=== PATIENT | female | born 1935 | race Caucasian/White ===

== ENCOUNTER 2023-05-02 13:59 | Emergency (ER) | payer MEDICARE, SELFPAY ==
[2023-05-02 14:00] VITALS: BMI 36.0
[2023-05-02 14:02] VITALS: BP 134/83
[2023-05-02 14:30] LABS: % Basophils 0.4 % (0-2); % Eosinophils 1.7 % (0-6); % Immature Granulocytes 0.3 % (0-0.5); % Lymphocytes 26.6 % (20.5-51.1); % Monocytes 15.7 % (1.7-9.3); % Neutrophils 55.3 % (42.2-75.2); Absolute Eosinophils 0.1 10^3/uL (0-0.7); Absolute Lymphocytes 1.9 10^3/uL (1.2-3.4); Absolute Monocytes 1.1 10^3/uL (0.1-0.6); Hematocrit 42.5 % (37.0-47.0); Hemoglobin 13.8 g/dL (12.0-16.0); Mean Corp Hgb Conc. 32.5 g/dL (33.0-37.0); Mean Corpuscular Hgb 34.1 pg (27.0-31.0); Mean Corpuscular Volume 104.9 fL (81.0-99.0); Mean Platelet Volume 11.1 fL (7.4-10.4); Nucleated Red Blood Cells % 0 %; Platelet Count 159 10^3/uL (130-400); Red Blood Cell Count 4.05 10^6/uL (4.20-5.40); Red Cell Dist. Width 12.8 % (11.5-14.5); White Blood Cell Count 7.3 10^3/uL (4.8-10.8)
[2023-05-02 14:47] LABS: Blood Urea Nitrogen 28 mg/dl (7-17); Calcium 9.3 mg/dl (8.4-10.2); Carbon Dioxide 37 mmol/L (22-30); Chloride 98 mmol/L (98-107); Estimated Creatinine Clearance 25 ml/min; Glucose 93 mg/dl (70-99); Potassium 4.3 mmol/L (3.5-5.1); Sodium 137 mmol/L (135-145); eGFR 30.83
[2023-05-02 15:14] VITALS: BP 125/82
--- NOTE | 2023-05-02 15:15 | ED.GENMED ---
History of Present Illness
General
Chief Complaint: Fall
Source: patient
Exam Limitations: none
Time Seen by Provider: 05/02/23 14:07
Travel History
Have you had any contact with someone who has COVID-19?: No
Do you have any symptoms of coronavirus? Fever > 100 degrees, chills, cough, shortness of breath, sore throat, loss of taste or smell, muscle aches, or headache?: No
History of Present Illness
History of Present Illness:
Patient got up to go to the bathroom. She lost her balance falling on the bathroom seat. No syncope no trauma at that time. She then got up to go into the living room or kitchen after urinating. She felt tremulous all over and then fell to the
ground. No chest pain shortness of breath heart racing. No syncope. Did hit the back of her head.
Past History
Past History
ED Past Medical History: Arrthythmia, CHF, GERD and Other (Chronic kidney disease)
ED Past Surgical History: Appendectomy, Cardiac (Pacemaker), Cholecystectomy, Orthopedic and Tonsilectomy
Review of Systems
Review of Systems
All Other Systems: Not applicable
Constitutional: Reports no symptoms
Respiratory: Reports no symptoms
Cardiac: Reports no symptoms
ABD/GI: Reports no symptoms
Phy Exam
Physical Exam
Physical Exam:
TRAUMA EXAM:
VITAL SIGNS: Vital signs reviewed, cooperative
DISTRESS: No active disease
EYES: Pupils reactive, no orbital trauma
NOSE: No deformity or epistaxis
FACE AND SCALP: No scalp or facial trauma, external canals no blood
NECK: Collar in place initially. Rechecked after collar removal nontender
BACK: Back nontender, pelvis stable to compression
RESPIRATORY: No distress, breath sounds normal, no tender chest wall
CARDIAC: Irregular irregular. Mildly tachycardic
ABDOMEN: Soft nontender bowel sounds normal
SKIN: Skin intact no bleeding, color normal
EXTREMITIES: Nontender, except for minimal tenderness to the right medial knee. No laxity or deformity
NEUROLOGICAL: Alert, oriented, no motor deficits
PSYCH: Mood affect normal
Course
Orders/Labs/Results
Orders:
Orders
05/02/23 14:16
Electrocardiogram (*1) Urgent
Reason for Study: Other
Other Reason for Exam: trauma
CT Cervical Spine W/o Iv Contr Urgent
Comment:
Reason For Exam: trauma
CT Head W/o Iv Contrast Urgent
Comment:
Reason For Exam: trauma
Cardiac Monitoring- Treatment ONCE
EKG- Treatment ONCE
05/02/23 14:18
Basic Metabolic Panel Urgent
Complete Blood Count/With Diff Urgent
Abnormal Lab Results
05/02/23
14:18
RBC 4.05 L 10^6/uL
(4.20-5.40)
MCV 104.9 H fL
(81.0-99.0)
MCH 34.1 H pg
(27.0-31.0)
MCHC 32.5 L g/dL
(33.0-37.0)
MPV 11.1 H fL
(7.4-10.4)
Absolute Monos (auto) 1.1 H 10^3/uL
(0.1-0.6)
Monocytes % 15.7 H %
(1.7-9.3)
Carbon Dioxide 37 H mmol/L
(22-30)
BUN 28 H mg/dl
(7-17)
Creatinine 1.6 H mg/dL
(0.6-1.0)
05/02/23 14:18
05/02/23 14:18
Vital Signs
Initial and Last Documented VS:
Initial Vital Signs
Temp
98.9 F
05/02/23 14:01
Last Documented Vital Signs
Temp Pulse Resp BP Pulse Ox
98.9 F 95 18 120/80 97
05/02/23 14:01 05/02/23 17:34 05/02/23 17:34 05/02/23 17:34 05/02/23 17:34
*Radiology
Radiology exam reviewed: radiology read reviewed (CT head and cervical spine negative)
*Pulse Oximetry
Patient hypoxic: no
*EKG
Interpreted by ED Provider?: Yes
Interpretation: abnormal
Comparison EKG: changes noted
Heart Rate: 104
Rate: tachycardiac
Rhythm: a-fib
Joffre: normal axis
Interval: normal interval
QRS Pattern: normal QRS
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
*Critical Care Note
Total Time (30-74mins, 75-104mins- exclusive of procedures): Not Applicable
Update Note
Update Note:
Pacemaker interrogation working correctly. Possibly under sensing atrial episodes. Episodes of A-fib. Currently in A-fib. No ventricular arrhythmias. No pacemaker malfunction. Patient is remained stable and nontoxic. She would like to go
home. Benign exam. No serious arrhythmia issues or pacemaker issues.
ED Attending Note
-
Portions of this chart may have been created with voice recognition software.� Occasional wrong word or��sound alike� substitutions may have occurred due to the inherent limitations of voice recognition software.
Discharge Plan
Departure
Patient Disposition: Home (Routine Discharge)
Date of Disposition: 05/02/23
Time of Disposition: 16:28
Patient with high blood pressure during this ER visit?: Yes
Discharge Problem:
Fall/posterior head injury, Paroxysmal atrial fibrillation, Chronic kidney disease
Instructions: Atrial Fibrillation (DC), Head Injury in Adults (DC), BLOOD PRESSURE
Prescriptions:
No Action
amiodarone 200 mg Tablet
200 mg PO BID
Culturelle 10 billion cell Capsule
1 cap PO BID
gabapentin 300 mg Tablet
600 mg PO HS
Creon 6,000-19,000 -30,000 unit Capsule,Delayed Release(Dr/Ec)
6,000 cap PO HS
Eliquis 2.5 mg Tablet
2.5 mg BID
psyllium husk [Metamucil] 0.4 gram Capsule
0.4 g PO DAILY
iron
240 mg PO DAILY
torsemide 20 mg Tablet
20 mg HS
trazodone 50 mg Tablet
100 mg HS
calcitriol 0.5 mcg Capsule
0.5 mcg DAILY
lovastatin 20 mg Tablet
20 mg PO HS
estradiol 0.01 % (0.1 mg/gram) Cream
VAGINAL DAILY
dimethyl sulfoxide 50 % Solution
INTRA-URETHRAL MONTHLY
nystatin 1 billion unit Powder
PO
potassium 20 mg Tablet,Chewable
20 mg PO DAILY
Prilosec 2.5 mg Susp,Delayed Release For Recon
2.5 mg DAILY
Referrals:
Marylu Sidhu DO [Family Provider] - Follow up in 2-3 days
Activity Restrictions/Additional Instructions:
Also call your automatic drill operator for close follow-up
Interventions
Interventions:
*Risk Screen - Suicide Last Done: 05/02/23 14:01
*General Assessment Last Done: 05/02/23 14:01
*Neglect/Abuse Screening Last Done: 05/02/23 14:01
ED- Fall Risk Assessment Last Done: 05/02/23 14:01
*ED COVID-19 Vaccine History Last Done: 05/02/23 14:01
*Nursing Disposition Last Done: 05/02/23 17:35
ED-Musculoskeletal Assessment Last Done: 05/02/23 14:01
ED- Neurological Assessment Last Done: 05/02/23 14:01
ED-Skin Assessment Last Done: 05/02/23 14:01
Discharge Date and Time
Discharge Date/Time: 05/02/23 17:37
[2023-05-02 17:34] VITALS: BP 120/80
== END 2023-05-02 17:37 | disposition home or self-care (01) ==
LOC: EMR 13:59
PROVIDERS: EMERGENCY PHYSICIAN Emergency Medicine; FAMILY PHYSICIAN Student in an Organized Health Care Education/Training Program
DX: S09.90XA Unspecified injury of head, initial encounter (principal); W19.XXXA Unspecified fall, initial encounter; I48.0 Paroxysmal atrial fibrillation; N18.9 Chronic kidney disease, unspecified; I50.9 Heart failure, unspecified; K21.9 Gastro-esophageal reflux disease without esophagitis; Z95.0 Presence of cardiac pacemaker
CPT/HCPCS: 99284; 70450; 72125; 80048; 85025; 93005

== ENCOUNTER → 2023-06-13 12:00 | Outpatient (REF) | payer MEDICARE, SELFPAY ==
[2023-06-13 14:43] LABS: Creatine Phosphokinase 64 U/L (30-135); Iron 75 ug/dl (37-170)
[2023-06-13 14:50] LABS: Erythrocyte Sed Rate 33 mm/hour (0-20)
[2023-06-13 14:53] LABS: Percent Saturation 26 % (20-50); Total Iron Binding Capacity 286 ug/dl (265-497)
[2023-06-13 14:54] LABS: Glycohemoglobin (HgbA1c) 6.4 % (4.0-5.6)
[2023-06-13 15:00] LABS: Vitamin D, 25-OH*** 39.8 ng/mL (30-80)
[2023-06-13 15:01] LABS: IgA 128 mg/dl (70-400)
[2023-06-13 15:13] LABS: TSH 2.16 uIU/ml (0.47-4.68)
[2023-06-13 15:17] LABS: Ferritin 84.2 ng/ml (11.1-264.0)
[2023-06-13 15:49] LABS: Folate > 20.0 ng/ml (2.76-20); Vitamin B12 980 pg/ml (239-931)
[2023-06-14 11:38] LABS: CRP, Highly Sensitive > 15.00 mg/L
[2023-06-14 16:40] LABS: Syphilis/T. pallidum Ab Reflex Negative (Negative)
[2023-06-15 15:17] LABS: tTG IgA Antibody 6.9 EU/ml (0-19)
[2023-06-15 20:48] LABS: Thyroglobulin 2.9 ng/mL (1.3-31.8); Thyroglobulin Antibodies <0.9 IU/mL (0.0-4.0)
[2023-06-16 06:10] LABS: Aldolase 8.9 U/L (1.2-7.6); Angiotensin-1-converting Enzym 75 U/L (16-85)
[2023-06-16 07:22] LABS: ANA, IgG Reflex to HEp-2 None Detected (None Detected)
[2023-06-16 07:58] LABS: Gliadin Peptide (DGP) Ab, IgA <0.72 FLU (0.00-4.99); Gliadin Peptide (DGP) Ab, IgG <0.56 FLU (0.00-4.99)
[2023-06-16 11:07] LABS: Copper, Serum 126.5 ug/dL (80.0-155.0)
[2023-06-16 12:55] LABS: Vitamin D 1,25 Dihydroxy 46.9 pg/mL (19.9-79.3)
[2023-06-17 00:51] LABS: SSA 52 (Ro)(ENA) Ab, IgG 20 AU/mL (0-40); SSA 60 (Ro)(ENA) Ab, IgG 0 AU/mL (0-40); SSB (La)(ENA) Ab, IgG 0 AU/mL (0-40)
[2023-06-17 12:22] LABS: Albumin 3.41 g/dL (3.75-5.01); Alpha 1 Globulin 0.37 g/dL (0.19-0.46); Alpha 2 Globulin 0.81 g/dL (0.48-1.05); SPEP IFE Reflex Not Done; Total Protein-Electrophoresis 6.1 g/dL (6.3-8.2)
[2023-06-17 12:55] LABS: Alpha-Tocopherol 16.6 mg/L (5.5-18.0); Gamma-Tocopherol 0.6 mg/L (0.0-6.0)
[2023-06-17 14:27] LABS: Vitamin B6 Results 57.8 nmol/L (20.0-125.0)
[2023-06-19 10:10] LABS: Vitamin B1, Whole Blood 227 nmol/L (70-180)
== END ==
LOC: REG 12:00
PROVIDERS: ATTENDING PHYSICIAN Psychiatry & Neurology Neurology; FAMILY PHYSICIAN Student in an Organized Health Care Education/Training Program
DX: R29.898 Other symptoms and signs involving the musculoskeletal system (principal)
CPT/HCPCS: 36415; 72100; 82085; 82164; 82306; 82525; 82550; 82607; 82652; 82728; 82746; 82784; 83036; 83516; 83540; 83550; 84155; 84165; 84207; 84425; 84432; 84443; 84446; 85652; 86038; 86141; 86235; 86258; 86780; 86800

== ENCOUNTER → 2023-07-21 10:52 | Outpatient (REF) | payer MEDICARE, SELFPAY ==
[2023-07-21 11:38] LABS: % Basophils 0.2 % (0-2); % Eosinophils 0.9 % (0-6); % Immature Granulocytes 0.4 % (0-0.5); % Lymphocytes 17.8 % (20.5-51.1); % Monocytes 17.3 % (1.7-9.3); % Neutrophils 63.4 % (42.2-75.2); Absolute Eosinophils 0.1 10^3/uL (0-0.7); Absolute Lymphocytes 1.5 10^3/uL (1.2-3.4); Absolute Monocytes 1.5 10^3/uL (0.1-0.6); Absolute Neutrophils 5.3 10^3/uL (1.4-6.5); Hematocrit 38.6 % (37.0-47.0); Hemoglobin 12.9 g/dL (12.0-16.0); Mean Corp Hgb Conc. 33.4 g/dL (33.0-37.0); Mean Corpuscular Hgb 33.8 pg (27.0-31.0); Mean Platelet Volume 11.9 fL (7.4-10.4); Nucleated Red Blood Cells % 0 %; Platelet Count 156 10^3/uL (130-400); Red Blood Cell Count 3.82 10^6/uL (4.20-5.40); Red Cell Dist. Width 13.7 % (11.5-14.5); White Blood Cell Count 8.4 10^3/uL (4.8-10.8)
[2023-07-21 11:57] LABS: ALT (SGPT) 401 U/L (0-35); AST (SGOT) 348 U/L (14-36); Albumin 2.9 g/dl (3.5-5.0); Alkaline Phosphatase 184 U/L (38-126); Blood Urea Nitrogen 36 mg/dl (7-17); Calcium 8.7 mg/dl (8.4-10.2); Carbon Dioxide 28 mmol/L (22-30); Chloride 99 mmol/L (98-107); Glucose 102 mg/dl (70-99); HDL Cholesterol 46 mg/dl; LDL Cholesterol, Calculated 53 mg/dl; Potassium 2.9 mmol/L (3.5-5.1); Sodium 136 mmol/L (135-145); Total Bilirubin 0.7 mg/dl (0.2-1.3); Total Cholesterol 118 mg/dl (50-199); Total Protein 5.1 g/dl (6.3-8.2); Triglyceride 96 mg/dl (10-149); Very Low Density Lipoprotein 19 mg/dl (0-30); eGFR 26.77
[2023-07-21 12:13] LABS: Free T4 2.54 ng/dl (0.78-2.19); Vitamin D, 25-OH*** 38.8 ng/mL (30-80)
[2023-07-21 12:26] LABS: TSH 0.85 uIU/ml (0.47-4.68)
[2023-07-21 12:46] LABS: Vitamin B12 > 1000 pg/ml (239-931)
[2023-07-21 14:26] LABS: Glycohemoglobin (HgbA1c) 6.2 % (4.0-5.6)
== END ==
LOC: OLABMERCHI 10:52
PROVIDERS: ATTENDING PHYSICIAN Nurse Practitioner Gerontology; FAMILY PHYSICIAN Hospitalist
DX: D64.9 Anemia, unspecified (principal); R94.4 Abnormal results of kidney function studies; E78.5 Hyperlipidemia, unspecified; E11.9 Type 2 diabetes mellitus without complications; D51.9 Vitamin B12 deficiency anemia, unspecified; E55.9 Vitamin D deficiency, unspecified; E03.9 Hypothyroidism, unspecified
CPT/HCPCS: 36415; 80053; 80061; 82306; 82607; 83036; 84439; 84443; 85025

== ENCOUNTER → 2023-07-28 10:40 | Outpatient (REF) | payer MEDICARE, SELFPAY ==
[2023-07-28 11:39] LABS: Potassium 3.8 mmol/L (3.5-5.1)
== END ==
LOC: OLABMERCHI 10:40
PROVIDERS: ATTENDING PHYSICIAN Nurse Practitioner Gerontology; FAMILY PHYSICIAN Hospitalist
DX: E87.6 Hypokalemia (principal)
CPT/HCPCS: 36415; 84132

== ENCOUNTER 2023-09-02 16:56 | Emergency (ER) | payer MEDICARE, SELFPAY ==
[2023-09-02 16:56] VITALS: BP 144/61; BMI 36.0
--- NOTE | 2023-09-02 17:10 | ED.GENMED ---
History of Present Illness
General
Chief Complaint: Fall
Time Seen by Provider: 09/02/23 17:09
History of Present Illness
History of Present Illness:
HPI: The patient presents from [facility] after a fall. She is on Eliquis and struck her head. She has had similar falls in the past and describes these as her 'knees giving out' and losing her balance. She does not have any neck pain. She has
no significant head pain. She denies any other symptoms or concerns at this time.
EXAM:
GENERAL: Well appearing in no distress
HEENT: Moist oral mucosa
HEAD: Small tender hematoma over the posterior scalp
NECK: No midline C-spine tenderness
CARDIOVASCULAR: 3 out of 6 systolic murmur, normal heart rate, regular rhythm, No chest wall tenderness, device noted left anterior chest wall
PULMONARY: No respiratory distress, breath sounds are clear and equal
ABDOMEN: Soft with no peritoneal signs, no tenderness
NEUROLOGIC: Fair strength equally in all extremities, no coordination deficits
PSYCHIATRIC: Appropriate mental status, normal insight and judgement
EXTREMITIES: Nontender, no edema, moves all extremities equally
SKIN: No rash, no lesions
TIME OF INITIAL ENCOUNTER: 5 PM
NUMBER AND COMPLEXITY OF PROBLEMS ADDRESSED AT THE ENCOUNTER
� Chronic conditions affecting care: A-fib on Eliquis, DVT, CKD, high blood pressure, CAD
� Acute Exacerbation and/or Progression of Chronic Illness: This is an acute but recurring problem
� Differential Diagnosis includes: Minor head injury, scalp hematoma, intracranial hemorrhage, dysrhythmia
AMOUNT AND/OR COMPLEXITY OF DATA TO BE REVIEWED AND ANALYZED
� I performed an independent evaluation of and my interpretation is:
EKG:
CT: CT head negative for bleeding
X-rays:
Laboratory Studies: Glucose 92
Other:
� Review of other/old records: The patient has history of sick sinus syndrome and had pacer placed in 2022
� Clinical information was obtained by an independent historian: EMS notes�patient on Eliquis and has history of A-fib; her systolics range from 130s to 150s while en route
� Prescriptions/Medications Considered but not given: Offered Tylenol but the patient declined
� Further testing considered but not performed: Considered CT of the C-spine however the patient has no cervical spine tenderness and is cleared by [facility] criteria
RISK OF COMPLICATIONS AND/OR MORBIDITY OR MORTALITY OF PATIENT MANAGEMENT
� Social determinants of health affecting care: Resides at [facility]
� Discussion with other providers: Received report from [facility]�patient had 522 monitored AT/AF episodes most recently on 08/31/2023, no sign of VT
� Escalation of care including admission/observation vs risk of discharge considered: Given patient age on Eliquis with head injury, CT imaging of the brain obtained. [employer] report shows no ventricular dysrhythmia. Glucose
normal. On reassessment at 7:50 PM, unremarkable workup and she continues to decline analgesia. Neurologic condition unchanged.
Past History
Past History
ED Past Medical History: Arrthythmia, CHF, GERD and Other (Chronic kidney disease)
ED Past Surgical History: Appendectomy, Cardiac (Pacemaker), Cholecystectomy, Orthopedic and Tonsilectomy
Phy Exam
Physical Exam
Physical Exam:
See HPI
Course
Orders/Labs/Results
Orders:
Orders
09/02/23 17:15
CT Head W/o Iv Contrast Urgent
Comment:
Reason For Exam: head trauma eliquis
Bedside Glucose- Treatment ONCE
Vital Signs
Initial and Last Documented VS:
Initial Vital Signs
Temp Pulse Resp BP Pulse Ox
97.7 F 68 19 144/61 95
09/02/23 16:56 09/02/23 16:56 09/02/23 16:56 09/02/23 16:56 09/02/23 16:56
Last Documented Vital Signs
Temp Pulse Resp BP Pulse Ox
97.7 F 60 20 106/85 95
09/02/23 16:56 09/02/23 19:25 09/02/23 19:25 09/02/23 19:25 09/02/23 16:56
*Critical Care Note
Total Time (30-74mins, 75-104mins- exclusive of procedures): Not Applicable
ED Attending Note
-
Portions of this chart may have been created with voice recognition software.� Occasional wrong word or��sound alike� substitutions may have occurred due to the inherent limitations of voice recognition software.
Discharge Plan
Departure
Prescriptions:
No Action
amiodarone 200 mg Tablet
200 mg PO BID
Culturelle 10 billion cell Capsule
1 cap PO BID
gabapentin 300 mg Tablet
600 mg PO HS
Creon 6,000-19,000 -30,000 unit Capsule,Delayed Release(Dr/Ec)
6,000 cap PO HS
Eliquis 2.5 mg Tablet
2.5 mg BID
psyllium husk [Metamucil] 0.4 gram Capsule
0.4 g PO DAILY
iron
240 mg PO DAILY
torsemide 20 mg Tablet
20 mg HS
trazodone 50 mg Tablet
100 mg HS
calcitriol 0.5 mcg Capsule
0.5 mcg DAILY
lovastatin 20 mg Tablet
20 mg PO HS
estradiol 0.01 % (0.1 mg/gram) Cream
VAGINAL DAILY
dimethyl sulfoxide 50 % Solution
INTRA-URETHRAL MONTHLY
nystatin 1 billion unit Powder
PO
potassium 20 mg Tablet,Chewable
20 mg PO DAILY
Prilosec 2.5 mg Susp,Delayed Release For Recon
2.5 mg DAILY
Referrals:
Radha Membreno, [Family Provider] -
Interventions
Interventions:
*Risk Screen - Suicide Last Done: 09/02/23 16:56
*General Assessment Last Done: 09/02/23 16:56
*Neglect/Abuse Screening Last Done: 09/02/23 16:56
*ED COVID-19 Vaccine History Last Done: 09/02/23 16:56
ED- Neurological Assessment Last Done: 09/02/23 17:04
Discharge Date and Time
Print Language: ARMENIAN
[2023-09-02 17:15] LABS: Glucose - Point of Care 92 mg/dl (70-99)
[2023-09-02 19:25] VITALS: BP 106/85
[2023-09-02 20:00] VITALS: BP 123/47
[2023-09-02 20:46] VITALS: BP 123/47
== END 2023-09-02 20:49 | disposition home or self-care (01) ==
LOC: EMR 16:56
PROVIDERS: EMERGENCY PHYSICIAN Emergency Medicine; FAMILY PHYSICIAN Hospitalist
DX: S00.03XA Contusion of scalp, initial encounter (principal); W19.XXXA Unspecified fall, initial encounter; Y92.89 Other specified places as the place of occurrence of the external cause; I48.91 Unspecified atrial fibrillation; I25.10 Atherosclerotic heart disease of native coronary artery without angina pectoris; I12.9 Hypertensive chronic kidney disease with stage 1 through stage 4 chronic kidney disease, or unspecified chronic kidney disease; N18.9 Chronic kidney disease, unspecified; I50.9 Heart failure, unspecified; I49.5 Sick sinus syndrome; K21.9 Gastro-esophageal reflux disease without esophagitis; Z95.0 Presence of cardiac pacemaker; Z79.01 Long term (current) use of anticoagulants; Z90.49 Acquired absence of other specified parts of digestive tract
CPT/HCPCS: 99284; 93288; 70450; 82962

== ENCOUNTER → 2023-09-02 18:54 | Outpatient (REF) | payer MEDICARE, SELFPAY ==
[2023-09-02 19:45] LABS: Urine Albumin 2+ (Neg - Trace); Urine Bilirubin Negative (Negative); Urine Character Very Cloudy (Clear); Urine Color Yellow; Urine Glucose Negative (Negative); Urine Ketone Negative (Negative); Urine Leukocyte 2+ (Negative); Urine Nitrite Negative (Negative); Urine Occult Blood 3+ (Negative); Urine Specific Gravity 1.015 (<1.030); Urine Urobilinogen Negative (Neg - 1+)
[2023-09-02 20:05] LABS: Urine White Cell >100 /HPF (0-5)
== END ==
LOC: OLABMERCHI 18:54
PROVIDERS: ATTENDING PHYSICIAN Nurse Practitioner Gerontology; FAMILY PHYSICIAN Hospitalist
DX: N39.0 Urinary tract infection, site not specified (principal)
CPT/HCPCS: 81003; 81015; 87077; 87086; 87186

== ENCOUNTER → 2023-09-15 11:29 | Outpatient (REF) | payer MEDICARE, SELFPAY ==
[2023-09-15 13:40] LABS: Blood Urea Nitrogen 35 mg/dl (7-17); Calcium 9.4 mg/dl (8.4-10.2); Carbon Dioxide 28 mmol/L (22-30); Chloride 105 mmol/L (98-107); Glucose 100 mg/dl (70-99); Potassium 3.6 mmol/L (3.5-5.1); Sodium 139 mmol/L (135-145); eGFR 33.31
== END ==
LOC: OLABMERCHI 11:29
PROVIDERS: ATTENDING PHYSICIAN Hospitalist
DX: R94.4 Abnormal results of kidney function studies (principal)
CPT/HCPCS: 36415; 80048

== ENCOUNTER → 2023-09-28 18:21 | Outpatient (REF) | payer MEDICARE, SELFPAY ==
[2023-09-28 19:43] LABS: Urine Albumin 2+ (Neg - Trace); Urine Bilirubin Negative (Negative); Urine Character Very Cloudy (Clear); Urine Color Yellow; Urine Glucose Negative (Negative); Urine Ketone Trace (Negative); Urine Leukocyte 2+ (Negative); Urine Nitrite Negative (Negative); Urine Occult Blood 4+ (Negative); Urine Specific Gravity 1.015 (<1.030); Urine Urobilinogen Negative (Neg - 1+)
[2023-09-28 19:49] LABS: Urine Red Blood Cell >100 /HPF (0-2)
== END ==
LOC: CLAB 18:21
PROVIDERS: ATTENDING PHYSICIAN Urology
DX: N39.0 Urinary tract infection, site not specified (principal)
CPT/HCPCS: 81003; 81015; 87086; 87088; 87186

== ENCOUNTER → 2023-10-19 11:32 | Outpatient (REF) | payer MEDICARE, SELFPAY ==
[2023-10-20 13:32] LABS: Urine Albumin Trace (Neg - Trace); Urine Bilirubin Negative (Negative); Urine Character Very Cloudy (Clear); Urine Color Yellow; Urine Glucose Negative (Negative); Urine Ketone Negative (Negative); Urine Leukocyte 2+ (Negative); Urine Nitrite Negative (Negative); Urine Occult Blood 4+ (Negative); Urine Urobilinogen Negative (Neg - 1+); Urine pH 6.5 (5.0-9.0)
[2023-10-20 14:16] LABS: Urine Squamous Cell 0-2 /LPF (Few)
[2023-10-20 14:18] LABS: Urine Red Blood Cell 50-60 /HPF (0-2); Urine White Cell >100 /HPF (0-5)
== END ==
LOC: OLABMERCHI 11:32
PROVIDERS: ATTENDING PHYSICIAN Nurse Practitioner Gerontology; FAMILY PHYSICIAN Hospitalist
DX: N39.0 Urinary tract infection, site not specified (principal)
CPT/HCPCS: 81003; 81015; 87086

== ENCOUNTER → 2023-11-02 18:50 | Outpatient (REF) | payer MEDICARE, SELFPAY | LOC: OLABMERCHI 18:50 | PROVIDERS: ATTENDING PHYSICIAN Specialist | DX: N39.0 Urinary tract infection, site not specified (principal) | CPT/HCPCS: 87086 ==

== ENCOUNTER 2023-12-16 17:54 | Inpatient (IN) | payer MEDICARE, SELFPAY ==
[2023-12-16] VITALS (8 sets, daily range): BP systolic 99–139; BP diastolic 61–90; BMI 31.4; BMI 29.8
--- NOTE | 2023-12-16 12:43 | ED.GENMED ---
ED Provider Triage
<José Gutierrez PA-C - Last Filed: 12/16/23 12:46>
-
Patient seen by provider in Triage?: Seen in Triage
Attestation: A medical screening examination has been initiated by a qualified medical provider. Based on the assessment performed at this time, it has been determined that an emergent medical condition may exist and the patient has been informed
that further medical evaluation and possible additional diagnostic testing may be needed.
HPI: 88-year-old female presenting to the emergency department from primary care physician's office. Patient has been getting care on a right lower extremity wound that started with a broken foot after patient had been placed in orthopedic boot and
the boot caused the wound. She has been on antibiotics for many days, recently about a week ago had doxycycline initiated but patient has not been getting any better and family now reporting that patient has not been eating or drinking and has had
a change in mental status.
GENERAL: Somewhat somnolent, not responsive and history obtained from son
EYE: No visual abnormalities.
NECK: Trachea midline
ENT: No visible abnormalities.
LUNGS: No acute respiratory distress
NEUROLOGICAL: Sleepy but arousable to tactile stimuli and voice
SKIN: Skin intact. No visible changes.
MUSCULOSKELETAL: Moving extremities normally
PSYCH: Unable to assess
This is a medical evaluation conducted in person to initiate diagnostic evaluation and provide initial therapeutics. Please see further documentation by the treating clinician.
Patient noted to be quite tachycardic. Given her history will initiate lactic acid. Will defer blood cultures to treating provider
History of Present Illness
<José Gutierrez PA-C - Last Filed: 12/16/23 12:46>
General
Chief Complaint: Weakness
Time Seen by Provider: 12/16/23 15:15
<Jane Alexander PA-C - Last Filed: 12/16/23 23:54>
General
Source: patient and family
Exam Limitations: none
Nursing documentation reviewed up to this point in time: agreed with
History of Present Illness
History of Present Illness:
88-year-old female coming from [facility] with a history of A-fib, on Eliquis here for severe pain in her right heel with a known ulceration.
Patient apparently broke her foot about 6 weeks ago and was put in a walking boot after she saw specialist at [facility] orthopedics. 2 weeks ago the boot was removed and there was heel pain. She been seen a couple times for this until a red
spot was noticed by family care doctor family practice nurse practitioner and presumed to be an infection. She was started on Keflex which she had for several days but they felt like it was not healing so she was switched to doxycycline 4 days ago.
Ever since being on doxycycline she has been having nausea and diarrhea; she hasn't eaten really in thepast 3 days
the diarrhea was more significant the first 2 days but has tapered off
per son, she is more confused than normal
she has not had fever, vomiting, cp, sob, headache, abdominal pain
pt has severe pain th ein heel and has been taking pain meds pretty regularly
this has been going on for a few weeks now
the COMPUTER FORENSIC SPECIALIST from PCP office saw it today and thought it looked worse and sent her in
Past History
<José Gutierrez PA-C - Last Filed: 12/16/23 12:46>
Past History
ED Past Medical History: Arrthythmia, CHF, GERD and Other (Chronic kidney disease)
ED Past Surgical History: Appendectomy, Cardiac (Pacemaker), Cholecystectomy, Orthopedic and Tonsilectomy
Review of Systems
<Jane Alexander PA-C - Last Filed: 12/16/23 23:54>
Review of Systems
Allergies reviewed?: Yes
All Other Systems: Not applicable
Phy Exam
<JORGE A Trejo Last Filed: 12/16/23 23:54>
Physical Exam
Physical Exam:
GENERAL: anxious, uncomfortable
HEAD: NCAT
CV: irregular, tachycardic 100s; no obvious murmur, b/l pitting symmetric LE edema
lungs: clear, no resp distress
NEUROLOGICAL: Alert and oriented, no focal neuro deficits, , 5/5 strength, sensation intact,
SKIN: Warm and dry,
ulceration posterior heel 4 x 2 cm stage II, surrounding mild eryhema and STS to the heel
exquisitely tender
MUSCULOSKELETAL: heel tender with ulceration and sts; no dorsal foot tenderness;
able to move theankle
PSYCH: Normal and appropriate interaction.
Sepsis
<Jane Alexander PA-C - Last Filed: 12/16/23 23:54>
Sepsis Screening
Sepsis Assessment: Sepsis
Sepsis Screen
Sepsis Screen: Sepsis
Date: 12/16/23
Time: 23:53
Course
<José Gutierrez PA-C - Last Filed: 12/16/23 12:46>
Orders/Labs/Results
Orders:
Orders
12/16/23 13:02
Basic Metabolic Panel Urgent
C-Reactive Protein Urgent
Comment: ADD ON
Complete Blood Count/With Diff Urgent
Erythrocyte Sed Rate Urgent
Comment: ADD ON
Lactic Acid Q4H
Comment: CANCEL 2nd LACTIC ACID IF 1st LACTIC ACID IS LESS THAN 2
12/16/23 Dinner
NPO
Allow oral meds: Yes
Allow clear liquids: No
12/16/23 15:43
Add On- LAB Urgent
Tests Added?: esr,crp
Foot, Right 3 View [CR Foot - Right Min 3 Views] Urgent
Comment:
Reason For Exam: right foot wound not healing
12/16/23 15:46
HYDROmorphone [Dilaudid] 0.5 mg IV NOW STA
12/16/23 15:49
Venous Blood Gas Urgent
%Oxygen/Room Air: 21
12/16/23 16:27
STOOL [C difficile Antigen & Toxins] Urgent
STEVE Source: Feces/Stool
Specimen Description:
Stool Culture Urgent
STEVE Source: Feces/Stool
Specimen Description:
12/16/23 16:30
0.9% Sodium Chloride 500 ml [Nss] 500 ml IV BOLUS
Dextrose 5%/Water 1000 ml [D5w] 1,000 ml Sodium Bicarbonate 150 meq IV 100 mls/hr
12/16/23 16:56
LFT [Mxewl-Ypfl-Pzwzvuj] Urgent
Blood Culture Urgent
STEVE Source: Blood/Venous
Specimen Description:
12/16/23 17:23
Admit/Transfer Patient As Directed
Co-Sign Provider:
Level of Care: Inpatient admission
Assign to:: IMU- Intermediate Care
Physician / Group: Dr Villa
Diagnosis: Sepsis
Reason for Hospitalization: pte p/w n/v/d and ams and pain right heel and sepsis.
Expected length of stay greater than two midnights?: Yes
ELOS- Estimated Length of Stay in days: 2
I certify the patient meets the requirements for IP care: Yes
12/16/23 17:24
Code Status As Directed
Resuscitation Status: Full Code
PRN Pain Medication Management As Directed
May give lesser potent ordered pain med per pt: Yes
preference::
Protocol:: Medication orders for pain may be administered in a
manner that supports deferring to patient preference
when the pt is:
- Requesting an ordered lesser potent pain medication.
Least to most potent pain medications are defined
as: acetaminophen < NSAID < tramadol < opioids
(morphine, oxycodone, hydromorphone).
- Requesting a lesser dose of the same medication IF
ORDERED.
- Requesting a less intrusive route of administration
if both routes are prescribed by the provider (PO <
IV).
12/16/23 17:26
Calcium Gluconate 1,000 mg IV NOW STA
Sodium Bicarbonate 50 meq IV NOW STA
12/16/23 17:27
INFECTIOUS DISEASE CONSULT Routine
Consulting Provider: Kavita Drake
Was physician already notified: Yes
Reason for consult: sepsis
12/16/23 17:28
0.9% Sodium Chloride 1000 ml [Nss] 1,000 ml IV BOLUS
12/16/23 17:30
0.9% Sodium Chloride 1000 ml [Nss] 1,000 ml IV 125 mls/hr
12/16/23 17:38
Vancomycin [Vancocin] 1,750 mg 0.9% Sodium Chloride 500 ml [Nss] 500 ml IV NOW
12/16/23 17:44
EKG [Electrocardiogram (*1)] Stat
Reason for Study: Atrial Fibrillation
Other Reason for Exam: Also Hyperkalemia
12/16/23 18:00
Cefepime HCl [Maxipime] 1,000 mg IV Q12H
VANCOMYCIN Pharmacy to Dose [VANCOCIN Pharmacy to Dose] 1 each Pharmacy To Prepare [Call Pharmacy To Prepare] 0 ml IV PER PROTOCOL
12/16/23 19:44
Activity As Directed
Activity Level: Out of Bed-Early Mobility
Vital Signs As Directed
Frequency: Per unit guidelines
DX Deep Vein Thrombosis Video Routine
12/16/23 20:00
Heparin 5,000 units SC Q12
12/16/23 21:02
BMP [Basic Metabolic Panel] Routine
12/17/23 06:00
Basic Metabolic Panel IN AM
Complete Blood Count/With Diff IN AM
Abnormal Lab Results
12/16/23 12/16/23 12/16/23
13:02 15:49 16:56
WBC 13.0 H 10^3/uL
(4.8-10.8)
Hct 47.2 H %
(37.0-47.0)
MCV 102.6 H fL
(81.0-99.0)
MCH 34.6 H pg
(27.0-31.0)
RDW 15.3 H %
(11.5-14.5)
MPV 11.5 H fL
(7.4-10.4)
Absolute Neuts (auto) 10.1 H 10^3/uL
(1.4-6.5)
Absolute Monos (auto) 1.4 H 10^3/uL
(0.1-0.6)
Neutrophils % 77.9 H %
(42.2-75.2)
Lymphocytes % 10.1 L %
(20.5-51.1)
Monocytes % 10.9 H %
(1.7-9.3)
VBG pH 7.16 L*
(7.32-7.43)
VBG pCO2 50 H mmHg
(35-48)
VBG HCO3 17.8 L mmol/L
(22-27)
Sodium 134 L mmol/L
(135-145)
Potassium 5.6 H mmol/L
(3.5-5.1)
Chloride 109 H mmol/L
(98-107)
Carbon Dioxide 12 L* mmol/L
(22-30)
BUN 35 H mg/dl
(7-17)
Creatinine 1.7 H mg/dL
(0.6-1.0)
Glucose 135 H mg/dl
(70-99)
AST 124 H U/L
(14-36)
ALT 205 H U/L
(0-35)
Alkaline Phosphatase 415 H U/L
(38-126)
C-Reactive Protein 57.30 H mg/L
(0.0-10.00)
Total Protein 5.1 L g/dl
(6.3-8.2)
Albumin 3.0 L g/dl
(3.5-5.0)
12/16/23 13:02
12/16/23 13:02
Vital Signs
Initial and Last Documented VS:
Initial Vital Signs
Pulse Resp BP Pulse Ox
121 16 129/86 98
12/16/23 12:40 12/16/23 12:40 12/16/23 12:40 12/16/23 12:40
Last Documented Vital Signs
Temp Pulse Resp BP Pulse Ox
97.4 F 125 18 99/63 95
12/16/23 23:26 12/16/23 22:03 12/16/23 22:03 12/16/23 22:03 12/16/23 22:03
<Jane Alexander PA-C - Last Filed: 12/16/23 23:54>
Orders/Labs/Results
Orders:
Orders
12/16/23 13:02
Basic Metabolic Panel Urgent
C-Reactive Protein Urgent
Comment: ADD ON
Complete Blood Count/With Diff Urgent
Erythrocyte Sed Rate Urgent
Comment: ADD ON
Lactic Acid Q4H
Comment: CANCEL 2nd LACTIC ACID IF 1st LACTIC ACID IS LESS THAN 2
12/16/23 Dinner
NPO
Allow oral meds: Yes
Allow clear liquids: No
12/16/23 15:43
Add On- LAB Urgent
Tests Added?: esr,crp
Foot, Right 3 View [CR Foot - Right Min 3 Views] Urgent
Comment:
Reason For Exam: right foot wound not healing
12/16/23 15:46
HYDROmorphone [Dilaudid] 0.5 mg IV NOW STA
12/16/23 15:49
Venous Blood Gas Urgent
%Oxygen/Room Air: 21
12/16/23 16:27
STOOL [C difficile Antigen & Toxins] Urgent
STEVE Source: Feces/Stool
Specimen Description:
Stool Culture Urgent
STEVE Source: Feces/Stool
Specimen Description:
12/16/23 16:30
0.9% Sodium Chloride 500 ml [Nss] 500 ml IV BOLUS
Dextrose 5%/Water 1000 ml [D5w] 1,000 ml Sodium Bicarbonate 150 meq IV 100 mls/hr
12/16/23 16:56
LFT [[id number]-Yzfi-Uhtddvw] Urgent
Blood Culture Urgent
STEVE Source: Blood/Venous
Specimen Description:
12/16/23 17:23
Admit/Transfer Patient As Directed
Co-Sign Provider:
Level of Care: Inpatient admission
Assign to:: IMU- Intermediate Care
Physician / Group: Dr Villa
Diagnosis: Sepsis
Reason for Hospitalization: pte p/w n/v/d and ams and pain right heel and sepsis.
Expected length of stay greater than two midnights?: Yes
ELOS- Estimated Length of Stay in days: 2
I certify the patient meets the requirements for IP care: Yes
12/16/23 17:24
Code Status As Directed
Resuscitation Status: Full Code
PRN Pain Medication Management As Directed
May give lesser potent ordered pain med per pt: Yes
preference::
Protocol:: Medication orders for pain may be administered in a
manner that supports deferring to patient preference
when the pt is:
- Requesting an ordered lesser potent pain medication.
Least to most potent pain medications are defined
as: acetaminophen < NSAID < tramadol < opioids
(morphine, oxycodone, hydromorphone).
- Requesting a lesser dose of the same medication IF
ORDERED.
- Requesting a less intrusive route of administration
if both routes are prescribed by the provider (PO <
IV).
12/16/23 17:26
Calcium Gluconate 1,000 mg IV NOW STA
Sodium Bicarbonate 50 meq IV NOW STA
12/16/23 17:27
INFECTIOUS DISEASE CONSULT Routine
Consulting Provider: Kavita Drake
Was physician already notified: Yes
Reason for consult: sepsis
12/16/23 17:28
0.9% Sodium Chloride 1000 ml [Nss] 1,000 ml IV BOLUS
12/16/23 17:30
0.9% Sodium Chloride 1000 ml [Nss] 1,000 ml IV 125 mls/hr
12/16/23 17:38
Vancomycin [Vancocin] 1,750 mg 0.9% Sodium Chloride 500 ml [Nss] 500 ml IV NOW
12/16/23 17:44
EKG [Electrocardiogram (*1)] Stat
Reason for Study: Atrial Fibrillation
Other Reason for Exam: Also Hyperkalemia
12/16/23 18:00
Cefepime HCl [Maxipime] 1,000 mg IV Q12H
VANCOMYCIN Pharmacy to Dose [VANCOCIN Pharmacy to Dose] 1 each Pharmacy To Prepare [Call Pharmacy To Prepare] 0 ml IV PER PROTOCOL
12/16/23 19:44
Activity As Directed
Activity Level: Out of Bed-Early Mobility
Vital Signs As Directed
Frequency: Per unit guidelines
DX Deep Vein Thrombosis Video Routine
12/16/23 20:00
Heparin 5,000 units SC Q12
12/16/23 21:02
BMP [Basic Metabolic Panel] Routine
12/17/23 06:00
Basic Metabolic Panel IN AM
Complete Blood Count/With Diff IN AM
Abnormal Lab Results
12/16/23 12/16/23 12/16/23
13:02 15:49 16:56
WBC 13.0 H 10^3/uL
(4.8-10.8)
Hct 47.2 H %
(37.0-47.0)
MCV 102.6 H fL
(81.0-99.0)
MCH 34.6 H pg
(27.0-31.0)
RDW 15.3 H %
(11.5-14.5)
MPV 11.5 H fL
(7.4-10.4)
Absolute Neuts (auto) 10.1 H 10^3/uL
(1.4-6.5)
Absolute Monos (auto) 1.4 H 10^3/uL
(0.1-0.6)
Neutrophils % 77.9 H %
(42.2-75.2)
Lymphocytes % 10.1 L %
(20.5-51.1)
Monocytes % 10.9 H %
(1.7-9.3)
VBG pH 7.16 L*
(7.32-7.43)
VBG pCO2 50 H mmHg
(35-48)
VBG HCO3 17.8 L mmol/L
(22-27)
Sodium 134 L mmol/L
(135-145)
Potassium 5.6 H mmol/L
(3.5-5.1)
Chloride 109 H mmol/L
(98-107)
Carbon Dioxide 12 L* mmol/L
(22-30)
BUN 35 H mg/dl
(7-17)
Creatinine 1.7 H mg/dL
(0.6-1.0)
Glucose 135 H mg/dl
(70-99)
AST 124 H U/L
(14-36)
ALT 205 H U/L
(0-35)
Alkaline Phosphatase 415 H U/L
(38-126)
C-Reactive Protein 57.30 H mg/L
(0.0-10.00)
Total Protein 5.1 L g/dl
(6.3-8.2)
Albumin 3.0 L g/dl
(3.5-5.0)
12/16/23 13:02
12/16/23 13:02
Vital Signs
Initial and Last Documented VS:
Initial Vital Signs
Pulse Resp BP Pulse Ox
121 16 129/86 98
12/16/23 12:40 12/16/23 12:40 12/16/23 12:40 12/16/23 12:40
Last Documented Vital Signs
Temp Pulse Resp BP Pulse Ox
97.4 F 125 18 99/63 95
12/16/23 23:26 12/16/23 22:03 12/16/23 22:03 12/16/23 22:03 12/16/23 22:03
<Mikey Barrett MD - Last Filed: 12/16/23 19:38>
Orders/Labs/Results
Orders:
Orders
12/16/23 13:02
Basic Metabolic Panel Urgent
C-Reactive Protein Urgent
Comment: ADD ON
Complete Blood Count/With Diff Urgent
Erythrocyte Sed Rate Urgent
Comment: ADD ON
Lactic Acid Q4H
Comment: CANCEL 2nd LACTIC ACID IF 1st LACTIC ACID IS LESS THAN 2
12/16/23 Dinner
NPO
Allow oral meds: Yes
Allow clear liquids: No
12/16/23 15:43
Add On- LAB Urgent
Tests Added?: esr,crp
Foot, Right 3 View [CR Foot - Right Min 3 Views] Urgent
Comment:
Reason For Exam: right foot wound not healing
12/16/23 15:46
HYDROmorphone [Dilaudid] 0.5 mg IV NOW STA
12/16/23 15:49
Venous Blood Gas Urgent
%Oxygen/Room Air: 21
12/16/23 16:27
STOOL [C difficile Antigen & Toxins] Urgent
STEVE Source: Feces/Stool
Specimen Description:
Stool Culture Urgent
STEVE Source: Feces/Stool
Specimen Description:
12/16/23 16:30
0.9% Sodium Chloride 500 ml [Nss] 500 ml IV BOLUS
Dextrose 5%/Water 1000 ml [D5w] 1,000 ml Sodium Bicarbonate 150 meq IV 100 mls/hr
12/16/23 16:56
LFT [Mclbg-Gjvb-Pedtwzb] Urgent
Blood Culture Urgent
STEVE Source: Blood/Venous
Specimen Description:
12/16/23 17:23
Admit/Transfer Patient As Directed
Co-Sign Provider:
Level of Care: Inpatient admission
Assign to:: IMU- Intermediate Care
Physician / Group: Dr Villa
Diagnosis: Sepsis
Reason for Hospitalization: pte p/w n/v/d and ams and pain right heel and sepsis.
Expected length of stay greater than two midnights?: Yes
ELOS- Estimated Length of Stay in days: 2
I certify the patient meets the requirements for IP care: Yes
12/16/23 17:24
Code Status As Directed
Resuscitation Status: Full Code
PRN Pain Medication Management As Directed
May give lesser potent ordered pain med per pt: Yes
preference::
Protocol:: Medication orders for pain may be administered in a
manner that supports deferring to patient preference
when the pt is:
- Requesting an ordered lesser potent pain medication.
Least to most potent pain medications are defined
as: acetaminophen < NSAID < tramadol < opioids
(morphine, oxycodone, hydromorphone).
- Requesting a lesser dose of the same medication IF
ORDERED.
- Requesting a less intrusive route of administration
if both routes are prescribed by the provider (PO <
IV).
12/16/23 17:26
Calcium Gluconate 1,000 mg IV NOW STA
Sodium Bicarbonate 50 meq IV NOW STA
12/16/23 17:27
INFECTIOUS DISEASE CONSULT Routine
Consulting Provider: Kavita Drake
Was physician already notified: Yes
Reason for consult: sepsis
12/16/23 17:28
0.9% Sodium Chloride 1000 ml [Nss] 1,000 ml IV BOLUS
12/16/23 17:30
0.9% Sodium Chloride 1000 ml [Nss] 1,000 ml IV 125 mls/hr
12/16/23 17:38
Vancomycin [Vancocin] 1,750 mg 0.9% Sodium Chloride 500 ml [Nss] 500 ml IV NOW
12/16/23 17:44
EKG [Electrocardiogram (*1)] Stat
Reason for Study: Atrial Fibrillation
Other Reason for Exam: Also Hyperkalemia
12/16/23 18:00
Cefepime HCl [Maxipime] 1,000 mg IV Q12H
VANCOMYCIN Pharmacy to Dose [VANCOCIN Pharmacy to Dose] 1 each Pharmacy To Prepare [Call Pharmacy To Prepare] 0 ml IV PER PROTOCOL
12/16/23 19:44
Activity As Directed
Activity Level: Out of Bed-Early Mobility
Vital Signs As Directed
Frequency: Per unit guidelines
DX Deep Vein Thrombosis Video Routine
12/16/23 20:00
Heparin 5,000 units SC Q12
12/16/23 21:02
BMP [Basic Metabolic Panel] Routine
12/17/23 06:00
Basic Metabolic Panel IN AM
Complete Blood Count/With Diff IN AM
Abnormal Lab Results
12/16/23 12/16/23 12/16/23
13:02 15:49 16:56
WBC 13.0 H 10^3/uL
(4.8-10.8)
Hct 47.2 H %
(37.0-47.0)
MCV 102.6 H fL
(81.0-99.0)
MCH 34.6 H pg
(27.0-31.0)
RDW 15.3 H %
(11.5-14.5)
MPV 11.5 H fL
(7.4-10.4)
Absolute Neuts (auto) 10.1 H 10^3/uL
(1.4-6.5)
Absolute Monos (auto) 1.4 H 10^3/uL
(0.1-0.6)
Neutrophils % 77.9 H %
(42.2-75.2)
Lymphocytes % 10.1 L %
(20.5-51.1)
Monocytes % 10.9 H %
(1.7-9.3)
VBG pH 7.16 L*
(7.32-7.43)
VBG pCO2 50 H mmHg
(35-48)
VBG HCO3 17.8 L mmol/L
(22-27)
Sodium 134 L mmol/L
(135-145)
Potassium 5.6 H mmol/L
(3.5-5.1)
Chloride 109 H mmol/L
(98-107)
Carbon Dioxide 12 L* mmol/L
(22-30)
BUN 35 H mg/dl
(7-17)
Creatinine 1.7 H mg/dL
(0.6-1.0)
Glucose 135 H mg/dl
(70-99)
AST 124 H U/L
(14-36)
ALT 205 H U/L
(0-35)
Alkaline Phosphatase 415 H U/L
(38-126)
C-Reactive Protein 57.30 H mg/L
(0.0-10.00)
Total Protein 5.1 L g/dl
(6.3-8.2)
Albumin 3.0 L g/dl
(3.5-5.0)
12/16/23 13:02
12/16/23 13:02
Vital Signs
Initial and Last Documented VS:
Initial Vital Signs
Pulse Resp BP Pulse Ox
121 16 129/86 98
12/16/23 12:40 12/16/23 12:40 12/16/23 12:40 12/16/23 12:40
Last Documented Vital Signs
Temp Pulse Resp BP Pulse Ox
97.4 F 125 18 99/63 95
12/16/23 23:26 12/16/23 22:03 12/16/23 22:03 12/16/23 22:03 12/16/23 22:03
<Jane Alexander PA-C - Last Filed: 12/16/23 23:54>
MDM/Problems Addressed
Differential Diagnosis Includes:
osteo, dehydration, cellultiis, less likely nec fasc
MDM/Problems Addressed:
room 8 [facility] 88 y/o F afib on eliquis
pressure ulcer R heel after wearing boot for 6 weeks for foot fx; has had keflex and changed to doxy 4 days ago and having ongoing severe pain; nausea/diarrhea nad lack of appetite started with the doxy; no tmuch diarrhea the past 2 days but not
eating
very dry appearing, tachy 110s, normotensive, afebrile, lactate normal, tender heel lulceration, normal pulse dopplered; no xray evidence of osteo; bicarb is 12 and venous ph 7.16; AG 13; likely from not eating/diarrhea; getting fluids
<Jane Alexander PA-C - Last Filed: 12/16/23 23:54>
*Critical Care Note
Total Time (30-74mins, 75-104mins- exclusive of procedures): Not Applicable
ED Attending Note
<José Gutierrez PA-C - Last Filed: 12/16/23 12:46>
-
Portions of this chart may have been created with voice recognition software.� Occasional wrong word or��sound alike� substitutions may have occurred due to the inherent limitations of voice recognition software.
<Mikey Barrett MD - Last Filed: 12/16/23 19:38>
ED Attending Note
Patient seen and examined by attending physician: Yes
I performed the substantive portion of visit, reviewed & personally made and approve the management plan that is documented in note by myself or MILO.: Yes
ED Attending Note:
88-year-old female complaining of severe right heel pain. Ongoing for weeks. Had a boot on previously. Also weak and at times confused.
On on exam patient is nontoxic in no distress. She has got cold feet bilaterally but appears to be perfusing. Good capillary refill. Warm and dry. No cyanosis
Erythema and severe tenderness to the heel. Bilateral lower extremity pitting edema.
X-ray negative.
Leukocytosis, acidosis. IV inpatient antibiotics. Do not feel this is consistent with a necrotizing fasciitis. Do not feel this is acute vascular issue.
Discharge Plan
Departure
Patient Disposition: Admit
Date of Disposition: 12/16/23
Time of Disposition: 16:24
Admit to: Telemetry
Presentation/result/management discussed w/ accepting MD/DO: Hospitalist
Patient with high blood pressure during this ER visit?: No
Condition: Fair
Covid-19: Not Applicable
Discharge Problem:
Metabolic acidosis, Starvation, Open wound of heel
Interventions
Interventions:
*Risk Screen - Suicide Last Done: 12/16/23 12:40
*General Assessment Last Done: 12/16/23 12:40
*Neglect/Abuse Screening Last Done: 12/16/23 12:40
ED- Fall Risk Assessment Last Done: 12/16/23 19:12
*ED COVID-19 Vaccine History Last Done: 12/16/23 14:25
*Nursing Disposition Last Done: 12/16/23 19:12
ED- Cardiac Assessment Last Done: 12/16/23 14:25
ED- Neurological Assessment Last Done: 12/16/23 14:25
ED- Pulmonary Assessment Last Done: 12/16/23 14:25
Discharge Date and Time
Discharge Date/Time: 12/16/23 19:13
[2023-12-16 13:20] LABS: % Basophils 0.2 % (0-2); % Eosinophils 0.6 % (0-6); % Immature Granulocytes 0.3 % (0-0.5); % Lymphocytes 10.1 % (20.5-51.1); % Monocytes 10.9 % (1.7-9.3); % Neutrophils 77.9 % (42.2-75.2); Absolute Eosinophils 0.1 10^3/uL (0-0.7); Absolute Lymphocytes 1.3 10^3/uL (1.2-3.4); Absolute Monocytes 1.4 10^3/uL (0.1-0.6); Absolute Neutrophils 10.1 10^3/uL (1.4-6.5); Hematocrit 47.2 % (37.0-47.0); Hemoglobin 15.9 g/dL (12.0-16.0); Mean Corp Hgb Conc. 33.7 g/dL (33.0-37.0); Mean Corpuscular Hgb 34.6 pg (27.0-31.0); Mean Corpuscular Volume 102.6 fL (81.0-99.0); Mean Platelet Volume 11.5 fL (7.4-10.4); Nucleated Red Blood Cells % 0 %; Platelet Count 150 10^3/uL (130-400); Red Cell Dist. Width 15.3 % (11.5-14.5)
[2023-12-16 13:46] LABS: Lactic Acid 0.9 mmol/L (0.7-2.0)
[2023-12-16 13:56] LABS: Blood Urea Nitrogen 35 mg/dl (7-17); Calcium 9.9 mg/dl (8.4-10.2); Carbon Dioxide 12 mmol/L (22-30); Chloride 109 mmol/L (98-107); Glucose 135 mg/dl (70-99); Potassium 5.6 mmol/L (3.5-5.1); Sodium 134 mmol/L (135-145); eGFR 28.67
[2023-12-16] MEDS: DILAUDID 0.5 MG IV (15:51)
[2023-12-16 16:04] LABS: Venous Blood Gas HCO3 17.8 mmol/L (22-27); Venous Blood Gas pCO2 50 mmHg (35-48); Venous Blood Gas pO2 35 mmHg (30-50)
[2023-12-16 16:06] LABS: Venous Blood Gas pH 7.16 (7.32-7.43)
[2023-12-16 16:25] LABS: Erythrocyte Sed Rate 8 mm/hour (0-20)
[2023-12-16] MEDS: NSS 500 IV (16:47)
[2023-12-16 17:20] LABS: ALT (SGPT) 205 U/L (0-35); AST (SGOT) 124 U/L (14-36); Alkaline Phosphatase 415 U/L (38-126); Direct Bilirubin 0.3 mg/dl (0.0-0.4); Total Bilirubin 0.7 mg/dl (0.2-1.3); Total Protein 5.1 g/dl (6.3-8.2)
--- NOTE | 2023-12-16 17:30 | HPS.HSE ---
Family Physician
-
Family Physician: Radha Membreno DO
Chief Complaint
-
Right heel pain, nausea vomiting and diarrhea
History of Present Illness
Patient 88 years old female with multiple medical problems came into the hospital with worsening right heel pain and erythema as well as nausea vomiting diarrhea and generalized weakness. Patient was wearing a boot ordered by orthopedic for over 6
weeks and took it 2 weeks ago and since then they have noticed she had a pressure ulcer on the right heel that has progressively getting worse. She was placed on antibiotics with Keflex for 4 days last week and finished on Tuesday and after that she
was started on doxycycline that she has been taking for the last 4 days. Patient has experienced nausea and vomiting and diarrhea with watery stools multiple times throughout the day and she has not been able to eat and drink well. Son also
noticed that she has been having mental status changes with confusion and disorientation progressively getting worse as well. She was brought into the hospital. In the ER bicarb noted to be 12, she is tachycardic, she is relatively hypotensive,
she also has a white count of 13, x-ray of the foot no gas or fractures. She was referred to hospitalist for further evaluation.
Medical History
Past Medical History
Past Medical History: Reports Other (Hypertension, paroxysmal atrial fibrillation, chronic CHF with preserved ejection fraction, tachybradycardia syndrome with pacemaker, peripheral neuropathy, chronic interstitial cystitis, anemia, depression
anxiety, CKD, pancreatic insufficiency.)
Past Surgical History: Reports Other (Pacemaker.)
Social History
Tobacco: Non-smoker
Alcohol: None
Drug: None
Family History
Family History: Not pertinent
Allergies / Home Medications
Allergies reflects when Allergies were last updated in [facility].
Home Medications with original date entered in [facility]
Allergy/Medication List:
Allergies
Allergy/AdvReac Type Severity Reaction Status Date / Time
aspirin [From Percodan] Allergy Nausea / Verified 12/16/23 12:40
Vomiting
erythromycin base Allergy Vomiting Verified 12/16/23 12:40
oxycodone [From Percodan] Allergy Vomiting Verified 12/16/23 12:40
phenobarbital Allergy Rash Verified 12/16/23 12:40
Sulfa (Sulfonamide Allergy Swelling Verified 12/16/23 12:40
Antibiotics)
zolpidem [From Ambien] Allergy Unknown Verified 12/16/23 12:40
Home Medications
Lactobacillus rhamnosus GG 10 billion cell capsule (Culturelle) 1 cap PO BID 12/13/22
amiodarone 200 mg tablet 200 mg PO BID 12/13/22
apixaban 2.5 mg tablet (Eliquis) 2.5 mg BID 12/13/22
calcitriol 0.5 mcg capsule 0.5 mcg DAILY 12/13/22
dimethyl sulfoxide 50 % urethral solution ml intra-urethral MONTHLY 12/13/22
estradiol 0.01% (0.1 mg/gram) vaginal cream vaginal DAILY 12/13/22
gabapentin 300 mg tablet 600 mg PO HS Pain 12/13/22
iron 240 mg PO DAILY 12/13/22
qthzfo-wbwfbkmr-mbcuoxp 6,000-19,000-30,000 unit capsule,delayed rel (Creon) 6,000 cap PO HS 12/13/22
lovastatin 20 mg tablet 20 mg PO HS 12/13/22
nystatin 1 billion unit oral powder unit PO 12/13/22
omeprazole magnesium 2.5 mg oral suspension,delayed release (Prilosec) 2.5 mg DAILY 12/13/22
potassium 20 mg chewable tablet 20 mg PO DAILY 12/13/22
psyllium husk 0.4 gram capsule (Metamucil) 0.4 g PO DAILY 12/13/22
torsemide 20 mg tablet 20 mg HS 12/13/22
trazodone 50 mg tablet 100 mg HS 12/13/22
Review of Systems
-
A 12 point ROS was completed and negative except as noted: Yes
Physical Exam
Vital Signs
Vital Signs
Pulse Resp BP Pulse Ox
111 18 111/69 96
12/16/23 16:00 12/16/23 16:00 12/16/23 16:00 12/16/23 16:00
Physical exam:
General: Acutely ill. Toxic appearance.
HEENT: Normocephalic, Atraumatic and Moist Mucous Membranes
Respiratory: Clear to Auscultation; Negative Wheezes, Rales or Rhonchi
Cardiac: Irregular rate and rhythm, tachycardic, and S1/S2
GI: Soft, Tender diffusely, and Nondistended
Musculoskeletal: Left heel ulcer with erythema surrounding and tenderness and warmth. No Clubbing, No Cyanosis and there is edema
Neuro: Awake, Alert and disoriented but able to answer some questions appropriately at times. Generalized weakness.
Psych: Calm
Physical Exam
General: Other
Laboratory Results
-
12/16/23 13:02
Laboratory Results
Lactic Acid Cancelled 12/16/23 17:00
Total Bilirubin 0.7 mg/dl (0.2-1.3) 12/16/23 16:56
AST 124 U/L (14-36) H 12/16/23 16:56
ALT 205 U/L (0-35) H 12/16/23 16:56
Alkaline Phosphatase 415 U/L (38-126) H 12/16/23 16:56
Data Reviewed
-
Diagnostic Radiology: Image Personally Visualized and interpreted
Lab Data: Labs Reviewed by me
Impression/Plan
-
IMPRESSION:
Patient 88 years old female with past medical history of A-fib CHF CAD in the past came into the hospital with left heel ulcer pain and erythema and nausea vomiting and diarrhea and found to be in sepsis. Patient is critically ill and remains at
risk of cardiac arrhythmias, hemodynamic instability, and risk of increased morbidity mortality due to acute presentation and multiple comorbidities.
Impression:
Sepsis, source could be skin soft tissue and or C. difficile
Metabolic acidosis
Leukocytosis
Relative hypotension
Sinus tachycardia versus A-fib RVR and based on cardiac exam I suspect this is A-fib with RVR.
Hyperkalemia
Hyponatremia
Conditions prior to presentation:
Chronic diastolic CHF
Paroxysmal atrial fibrillation-not on anticoagulation due to risk of falls and bleeding
C. difficile in the past
Hypertension
Dyslipidemia
Depression anxiety
PLAN:
Bolus normal saline
Continue IV fluids with high maintenance
Monitor volume status
Broad-spectrum IV antibiotics, IV cefepime and vancomycin
ID consult-[place] texted ID today
Stat bicarb bolus and repeat BMP in 2 hours after administration to assess if she will require IV bicarb infusion
Stat calcium gluconate
Stat EKG 12-lead to assess A-fib and also in the setting of hyperkalemia
Seen and reviewed x-ray of the foot
DVT prophylaxis with heparin SQ
CODE STATUS-discussed with patient and son at bedside and she has a living will the status DNR but she wants to be full code and if her clinical condition deteriorates and chances of survival are diminished then she instructed family to go back to
DNR. So for now is full code.
Will give further recommendations based on clinical course
Discussed with patient and family about her current condition and guarded prognosis but will reevaluate depending on her clinical course if she turns around
Total Critical Care Time 48 minutes. I was immediately available to the patient and staff. I personally examined, reviewed labs, diagnostic images/reports, interpretations, treatment plans, discussed patient care with other providers and family
or caregivers (if patient is unable to make decisions), entered orders as appropriate and documented the medical record.
[2023-12-16] MEDS: NSS 1000 IV ×2 (17:55→19:50)
[2023-12-16] MEDS: CALCIUM GLUCONATE 1000 MG IV (17:55)
[2023-12-16] MEDS: SODIUM BICARBONATE 50 MEQ IV (17:59)
[2023-12-16] MEDS: VANCOCIN 535 MG IV (18:24)
[2023-12-16] MEDS: MAXIPIME 1000 MG IV (18:34)
[2023-12-16] MEDS: STERILE WATER FOR INJECTION 10 ML IV (18:35)
--- NOTE | 2023-12-16 19:04 | PHA.VAN.IN ---
Assessment
- Assessment
Renal Function: Appears similar to baseline (09/15/23 BASELINE SCR: 1.5)
Concomitant Antimicrobials: CEFEPIME
- Previous Dosing Experience
Previous Regimen: NONE
Plan
- Plan
Initial / Loading Dose: 1750MG
Maintenance Regimen: DOSING BY RANDOM LEVELS
Monitoring: RANDOM VANCOMYCIN LEVEL 12/17/23 AM
Pharmacokinetics Vancomycin I
- -
Patient Age: 88
Patient Sex: Female
Vancomycin Day #: 1
Indication: Skin And Soft Tissue (SEPSIS)
Requesting Provider: JORGE
Pertinent Antimicrobial Allergies:
Allergies
Sulfa (Sulfonamide Antibiotics) Allergy (Verified 12/16/23 12:40)
Swelling
Per Pre-Implant/Electrophysiology Physician's Orders for 12/13/22
erythromycin base Allergy (Verified 12/16/23 12:40)
Vomiting
Per Pre-Implant/Electrophysiology Physician's Orders for 12/13/22
Height / Weight:
Height 5 ft 1 in
Actual Weight 75.3 kg
- Vital Signs / Lab Results
Pulse Resp BP Pulse Ox
118 16 132/84 99
12/16/23 18:03 12/16/23 18:03 12/16/23 18:03 12/16/23 18:03
Lab Results - Hematology
12/16/23
13:02
WBC 13.0 H
Lab Results - Chemistry
12/16/23 12/16/23 12/16/23
13:02 15:45 16:56
BUN 35 H
Creatinine 1.7 H
Albumin Cancelled 3.0 L
12/16/23 12/16/23
13:02 17:00
Lactic Acid 0.9 Cancelled
[2023-12-16] MEDS: HEPARIN 5000 UNITS SC (19:50)
[2023-12-16 21:32] LABS: Blood Urea Nitrogen 31 mg/dl (7-17); Calcium 9.2 mg/dl (8.4-10.2); Carbon Dioxide 17 mmol/L (22-30); Chloride 111 mmol/L (98-107); Estimated Creatinine Clearance 26 ml/min; Glucose 91 mg/dl (70-99); Sodium 140 mmol/L (135-145); eGFR 36.19
--- NOTE | 2023-12-16 22:00 | PTCARENOTE ---
Pt received as IMU admission to 3356. AAOx3. Very drowsy but arousable. Able to answer questions. Right posterior heel very painful/tender 9/10 pain rating. Received Dilaudid in ED. Wound care completed and documented for stage 2 to right posterior
heel with cellulitis to right lower leg. +2 edema LE's. +1 edema right foot. VSS. Afebrile. ST/Afib on CM. Rate 110's-120's. RA POX 95%. Pt very anxious and tremulous with any care provided. Attends changed and purewick placed. Pt denies any
diarrhea. Complete CHG bath given. Pt very hard stick for labs. Will need midline in am. IVF's infusing as ordered. NPO. Rest of assessment as documented. Maintained on Q2hr turns with wedge. Right foot remains elevated on pillow. Oriented to room
and surroundings. Call pike within reach. Will continue to monitor.
[2023-12-16] MEDS: DILAUDID 1 MG IV (22:06)
[2023-12-17] VITALS (16 sets, daily range): BP systolic 90–148; BP diastolic 52–125; PULSE 119–121; O2SAT 97; BMI 29.8
[2023-12-17] MEDS: NSS 1000 IV ×3 (04:43→22:47)
[2023-12-17] MEDS: MAXIPIME 1000 MG IV (05:29)
[2023-12-17] MEDS: STERILE WATER FOR INJECTION 10 ML IV (05:30)
[2023-12-17 05:45] LABS: Blood Urea Nitrogen 28 mg/dl (7-17); Carbon Dioxide 17 mmol/L (22-30); Chloride 114 mmol/L (98-107); Estimated Creatinine Clearance 31 ml/min; Glucose 71 mg/dl (70-99); Sodium 141 mmol/L (135-145); eGFR 43.54
[2023-12-17 05:56] LABS: Vancomycin Random 14.1 ug/ml
[2023-12-17] MEDS: HEPARIN 5000 UNITS SC ×2 (08:52→19:22)
--- NOTE | 2023-12-17 08:59 | W.PN.HOSP.TC ---
Today's Communication/Plan
-
IV antibiotics. IV fluids.
Assessment / Plan
Assessment / Plan
Physical exam:
General: Acutely ill
HEENT: Normocephalic, Atraumatic and Moist Mucous Membranes
Respiratory: Clear to Auscultation; Negative Wheezes, Rales or Rhonchi
Cardiac: Irregular rate and rhythm and tachycardic and S1/S2
GI: Soft, Nontender and Nondistended
Musculoskeletal: No Clubbing, No Cyanosis and No Edema
Neuro: Awake, Alert and Oriented
Psych: Calm
A/P:
Sepsis due to right heel cellulitis:
Continue IV antibiotic but de-escalate from cefepime Vanco to IV cefazolin
Follow-up blood cultures
Wound care consult
ID consult appreciated
Will update her medications once they are available
A-fib RVR:
Continue IV Lopressor as needed
Hypotension:
Likely combination of hypovolemia, sepsis, and medications.
Toxic metabolic encephalopathy:
Improving
Start diet today
Speech therapy eval
Nausea vomiting and diarrhea:
Concern for C. difficile but seems less likely
Probably related to adverse effects of oral antibiotics
Acute kidney injury:
Continue IV fluid
Avoid nephrotoxic
Metabolic acidosis:
Related to GI losses and infection
Requiring intravenous bicarb
Continue monitoring acidosis
Pacemaker status:
Pacemaker functioning well
Chronic diastolic CHF:
Appears hypovolemic
Continue IV fluids
Monitor volume status closely
Peripheral neuropathy:
Resume pain medication
Pancreatic insufficiency:
Resume pancreatic replacement medications
Hypertension:
Continue home antihypertensive
History of C. difficile:
History noted
At risk of recurrence but monitor
Hyponatremia:
Resolved
Hyperkalemia:
Resolved
DVT prophylaxis:
Heparin SQ
CODE STATUS:
Full code
Total time spent on today's encounter was 52 minutes which included time spent in counseling the patient/family regarding diagnosis and treatment plan as listed above, goals of care, and symptom management. Case was discussed with nursing staff,
specialists, and care coordinators/case management. All labs and imaging personally reviewed by me. Remainder the time spent in detailed review of previous records, lab data, imaging, and other medical provider documentation.
Anticipated Discharge: > 48 hours
Subjective/Interval History
-
Date of Service: December 17, 2023
Patient feels better overall today. More alert. Blood pressure improving and heart rate but blood pressure still relatively low and heart rate still tachycardic. Afebrile today
Objective Data
-
Labs:
Laboratory Results
12/16/23 12/17/23 12/17/23
21:02 04:57 06:00
WBC Pending
Hgb Pending
Hct Pending
Plt Count Pending
Sodium 140 141
Potassium 5.0 5.0
Chloride 111 H 114 H
Carbon Dioxide 17 L 17 L
BUN 31 H 28 H
Creatinine 1.4 H 1.2 H
Glucose 91 71
Calcium 9.2 9.0
Vital Signs:
Vital Signs
Temp Pulse Resp BP Pulse Ox
97.6 F 112 20 100/66 96
12/17/23 03:38 12/17/23 06:00 12/17/23 06:00 12/17/23 06:00 12/17/23 04:15
I&O
12/16/23 12/17/23 12/18/23
06:59 06:59 06:59
Intake Total 1000 / 1000
Output Total 275 / 275
Balance 725 / 725
--- NOTE | 2023-12-17 10:08 | CON.ID ---
Consultation
-
Date/Time Consultation Requested: December 16, 2023 1727
Date/Time Consultation Performed: December 17, 2023 1010
Requesting Provider: Dr. Andrew Villa
Performing Provider: Dr. Kavita Drake
Reason for Consultation: Sepsis
Chief Complaint / Past History
Chief Complaint
Nausea, vomiting, diarrhea, weakness
History of Present Illness
88-year-old female with history of hypertension, heart failure, atrial fibrillation, pacemaker placement, who presented to the hospital December 15 due to weakness and confusion. Patient reports she had 2 bone fractures on her right foot and was
being managed conservatively with an orthopedic boot for which she was wearing for 6 weeks. When the boot was removed approximately 2 weeks ago, a blister was noted on her heel. The blister eventually opened with wound underneath. She was placed
on cephalexin then recently transitioned to doxycycline approximately 4 to 5 days ago. She then developed nausea, vomiting, diarrhea, and poor appetite. Also with decreased mental status. Patient therefore came to the ER yesterday. White count
13. She was mildly hypotensive responded to IV fluids. She is currently on vancomycin and cefepime. Patient reports no further diarrhea. Nausea improved. She complains of the right heel wound pain. No fevers or chills. No cough. No dysuria.
No headaches.
Past History
Additional Past Medical History:
Hypertension
Peripheral neuropathy
Paroxysmal atrial fibrillation
Heart failure with preserved EF
Tachybradycardia syndrome status post pacemaker placement
Interstitial cystitis
CKD
Anxiety/depression
Pancreatic insufficiency
Remote hx C. diff
Allergy History:
aspirin [From Percodan] Allergy (Verified 12/16/23 12:40)
Nausea / Vomiting
erythromycin base Allergy (Verified 12/16/23 12:40)
Vomiting
oxycodone [From Percodan] Allergy (Verified 12/16/23 12:40)
Vomiting
phenobarbital Allergy (Verified 12/16/23 12:40)
Rash
Sulfa (Sulfonamide Antibiotics) Allergy (Verified 12/16/23 12:40)
Swelling
zolpidem [From Ambien] Allergy (Verified 12/16/23 12:40)
Unknown
Medications Reviewed: Yes
Current Antibiotics:
Vancomycin
Cefepime
Social History
Tobacco: Non-Smoker
Alcohol: None
Drug: None
Family History
Family History: Not Pertinent
Review of Systems
Review of Systems
General: Change in Appetite; Negative Fever or Chills
HEENT: Negative Sinus Problems, Headache or Pharyngitis
Cardiovascular: Negative Chest Pain or Dyspnea
Respiratory: Negative Dyspnea or Cough
Genital / Urological: Negative Dysuria or Flank Pain
Endocrine: Weakness
Neurological: Negative Headache or Dizziness
All systems: All other systems were reviewed and were negative
Vital Signs
Temp Pulse Resp BP Pulse Ox
97.4 F 112 20 100/66 96
12/17/23 07:13 12/17/23 06:00 12/17/23 06:00 12/17/23 06:00 12/17/23 04:15
Physical Exam
Physical Exam
Constitutional: No Acute Distress
Head: Other (No frontal or maxillary sinus tenderness)
Eyes: No Conjunctival Hemorrhage and Sclera Anicteric
Cardiovascular: S1/S2 and Other (Tachycardic, left chest wall pacemaker pocket site without erythema or induration)
Pulmonary: Clear
Gastrointestinal: Soft and Non Tender
Genito-Urinary: Negative CVA Tenderness
Extremities: Venous Insufficiency (Bilateral lower extremity)
Wound: Other (Posterior right calcaneous with stage 2 wound, scant yellow fibrin, + pink tissue, + periwound erythema)
Neurological: AO x 3; Negative Meningeal Signs
Lab / Diagnostic Study Results
12/17/23 04:57
Abs Immat Gran (auto) 0.0 10^3/uL (0-0.05) 12/16/23 13:02
Absolute Neuts (auto) 10.1 10^3/uL (1.4-6.5) H 12/16/23 13:02
Absolute Lymphs (auto) 1.3 10^3/uL (1.2-3.4) 12/16/23 13:02
Absolute Monos (auto) 1.4 10^3/uL (0.1-0.6) H 12/16/23 13:02
Absolute Basos (auto) 0.0 10^3/uL (0-0.2) 12/16/23 13:02
Immature Gran % 0.3 % (0-0.5) 12/16/23 13:02
Neutrophils % 77.9 % (42.2-75.2) H 12/16/23 13:02
Lymphocytes % 10.1 % (20.5-51.1) L 12/16/23 13:02
Monocytes % 10.9 % (1.7-9.3) H 12/16/23 13:02
Eosinophils % 0.6 % (0-6) 12/16/23 13:02
Basophils % 0.2 % (0-2) 12/16/23 13:02
ESR 8 mm/hour (0-20) 12/16/23 13:02
Lactic Acid Cancelled 12/16/23 17:00
C-Reactive Protein 57.30 mg/L (0.0-10.00) H 12/16/23 13:02
Microbiology Results
Micro:
12/16/23 20:28 MRSA Screen - Pending
Nose
12/16/23 18:28 Blood Culture - Pending
Blood/Venous
12/16/23 16:56 Blood Culture - Pending
Blood/Venous
12/16/23 Right foot XRAY: Soft tissue ulceration along the posterior heel. No convincing radiographic evidence for active osteomyelitis.
Assessment / Plan
# Antibiotic (doxy) intolerance with associated nausea, vomiting, and diarrhea
-Symptoms resolved
-Cancel stool for C. difficile/culture orders.
# Low blood pressure due to hypovolemia from poor p.o. intake
-BP responded to IV fluids
# Right heel wound with probable surrounding cellulitis
-Developed blister from orthopedic boot, resulting in wound.
-Consult wound/ostomy
-In the meantime, I placed wound care orders.
-De-escalate vancomycin/cefepime to cefazolin
-
# Leukocytosis resolved
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
Hypertension
Peripheral neuropathy
Paroxysmal atrial fibrillation
Heart failure with preserved EF
Tachybradycardia syndrome status post pacemaker placement
Interstitial cystitis
CKD
Anxiety/depression
Pancreatic insufficiency
Remote hx C. diff
[2023-12-17] MEDS: DILAUDID 1 MG IV ×2 (11:53→16:22)
--- NOTE | 2023-12-17 12:07 | PHANOTE ---
med rec tech- called hailey almanzar at [phone] spoke to nursing floor to have med list fax over to ed pod 1 fax at [phone]
[2023-12-17] MEDS: DAKIN'S SOLUTION 0.125% 1/4 STRENGTH 473 ML TOPICAL (12:29)
[2023-12-17] MEDS: SANTYL OINTMENT 1 APPLIC TOPICAL (12:30)
[2023-12-17] MEDS: ANCEF 5 IV ×2 (12:48→19:32)
[2023-12-17 14:47] LABS: % Basophils 0.4 % (0-2); % Eosinophils 0.6 % (0-6); % Immature Granulocytes 0.2 % (0-0.5); % Lymphocytes 8.4 % (20.5-51.1); % Monocytes 10.5 % (1.7-9.3); % Neutrophils 79.9 % (42.2-75.2); Absolute Eosinophils 0.1 10^3/uL (0-0.7); Absolute Lymphocytes 0.8 10^3/uL (1.2-3.4); Absolute Neutrophils 7.6 10^3/uL (1.4-6.5); Hematocrit 38.9 % (37.0-47.0); Hemoglobin 12.6 g/dL (12.0-16.0); Mean Corp Hgb Conc. 32.4 g/dL (33.0-37.0); Mean Corpuscular Hgb 32.9 pg (27.0-31.0); Mean Corpuscular Volume 101.6 fL (81.0-99.0); Mean Platelet Volume 10.8 fL (7.4-10.4); Nucleated Red Blood Cells % 0 %; Platelet Count 146 10^3/uL (130-400); Red Blood Cell Count 3.83 10^6/uL (4.20-5.40); Red Cell Dist. Width 15.6 % (11.5-14.5); White Blood Cell Count 9.5 10^3/uL (4.8-10.8)
--- NOTE | 2023-12-17 21:45 | PTCARENOTE ---
Pt resting in bed at beginning of shift. AAOx3, Drowsy but arousable. Pain to right heel controlled at present time. Wound care completed on day shift per report. VSS. Afebrile. ST/Afib on CM rate 100's-110's. Pt without diarrhea, stool C&S/Cdiff
cancelled. Pt placed on standard precautions. Purewick in place. Pericare completed. Refuses mouth care tonight. New midline intact with good blood return. IVF's infusing through [facility]. Rest of assessment as documented. Maintained on Q2hr turns. Call
pike remains within reach. Will continue to monitor.
[2023-12-18] VITALS (15 sets, daily range): BP systolic 68–127; BP diastolic 44–84; PULSE 63; BMI 30.2
[2023-12-18] MEDS: DILAUDID 1 MG IV ×3 (00:13→16:21)
[2023-12-18] MEDS: LOPRESSOR 5 MG IV (00:14)
[2023-12-18 04:47] LABS: % Basophils 0.6 % (0-2); % Eosinophils 1.3 % (0-6); % Immature Granulocytes 0.4 % (0-0.5); % Lymphocytes 11.4 % (20.5-51.1); % Monocytes 13.7 % (1.7-9.3); % Neutrophils 72.6 % (42.2-75.2); Absolute Basophils 0.1 10^3/uL (0-0.2); Absolute Eosinophils 0.1 10^3/uL (0-0.7); Absolute Lymphocytes 0.9 10^3/uL (1.2-3.4); Absolute Monocytes 1.1 10^3/uL (0.1-0.6); Absolute Neutrophils 5.7 10^3/uL (1.4-6.5); Hematocrit 39.8 % (37.0-47.0); Hemoglobin 12.9 g/dL (12.0-16.0); Mean Corp Hgb Conc. 32.4 g/dL (33.0-37.0); Mean Corpuscular Hgb 33.4 pg (27.0-31.0); Mean Corpuscular Volume 103.1 fL (81.0-99.0); Mean Platelet Volume 11.8 fL (7.4-10.4); Nucleated Red Blood Cells % 0 %; Platelet Count 138 10^3/uL (130-400); Red Blood Cell Count 3.86 10^6/uL (4.20-5.40); Red Cell Dist. Width 15.8 % (11.5-14.5); White Blood Cell Count 7.8 10^3/uL (4.8-10.8)
[2023-12-18 05:06] LABS: ALT (SGPT) 142 U/L (0-35); AST (SGOT) 116 U/L (14-36); Albumin 2.2 g/dl (3.5-5.0); Alkaline Phosphatase 324 U/L (38-126); Blood Urea Nitrogen 21 mg/dl (7-17); Calcium 8.1 mg/dl (8.4-10.2); Carbon Dioxide 17 mmol/L (22-30); Chloride 116 mmol/L (98-107); Estimated Creatinine Clearance 33 ml/min; Glucose 71 mg/dl (70-99); Potassium 4.3 mmol/L (3.5-5.1); Sodium 142 mmol/L (135-145); Total Bilirubin 0.5 mg/dl (0.2-1.3); Total Protein 4.3 g/dl (6.3-8.2); eGFR 48.33
[2023-12-18] MEDS: ANCEF 5 IV ×3 (05:45→21:11)
[2023-12-18] MEDS: NSS 1000 IV ×2 (05:46→16:21)
--- NOTE | 2023-12-18 08:27 | W.PN.HOSP.TC ---
Today's Communication/Plan
-
Continue IV antibiotics. Transfer out of IMU. PT OT eval
Assessment / Plan
Assessment / Plan
Physical exam:
General: Acutely ill
HEENT: Normocephalic, Atraumatic and Moist Mucous Membranes
Respiratory: Clear to Auscultation; Negative Wheezes, Rales or Rhonchi
Cardiac: Irregular rate and rhythm and tachycardic and S1/S2
GI: Soft, Nontender and Nondistended
Musculoskeletal: No Clubbing, No Cyanosis and No Edema
Neuro: Awake, Alert and Oriented
Psych: Calm
A/P:
Sepsis due to right heel cellulitis:
Continue IV antibiotic but de-escalate from cefepime Vanco to IV cefazolin
Follow-up blood cultures
Wound care consult
ID consult appreciated
Discussed with son at bedside today on 12/17
A-fib RVR:
Continue IV Lopressor as needed
Resume amiodarone
Confirmed with patient and son that she is not on anticoagulation (even though Magalie is on her list she discussed with cardiology that she is at high risk fall and bleeding).
Hypotension:
Improving
Likely combination of hypovolemia, sepsis, and medications.
Toxic metabolic encephalopathy:
Improving
Start diet today
Speech therapy eval
Nausea vomiting and diarrhea:
Concern for C. difficile but seems less likely
Probably related to adverse effects of oral antibiotics
Acute kidney injury:
Continue IV fluid but can stop in a.m.
Avoid nephrotoxic
Metabolic acidosis:
Related to GI losses and infection
Requiring intravenous bicarb
Continue monitoring acidosis
Pacemaker status:
Pacemaker functioning well
Chronic diastolic CHF:
Appears hypovolemic
ok IV fluids
Monitor volume status closely
Peripheral neuropathy:
Resume pain medication
Pancreatic insufficiency:
Resume pancreatic replacement medications
Hypertension:
Continue home antihypertensive
History of C. difficile:
History noted
At risk of recurrence but monitor
Hyponatremia:
Resolved
Hyperkalemia:
Resolved
DVT prophylaxis:
Heparin SQ
CODE STATUS:
Full code
Anticipated Discharge: 24 - 48 hours
Subjective/Interval History
-
Date of Service: December 18, 2023
Patient feels better overall. Still having some discomfort in heel area. Afebrile
Objective Data
-
Labs:
Laboratory Results
12/18/23
04:04
WBC 7.8
Hgb 12.9
Hct 39.8
Plt Count 138
Sodium 142
Potassium 4.3
Chloride 116 H
Carbon Dioxide 17 L
BUN 21 H
Creatinine 1.1 H
Glucose 71
Calcium 8.1 L
Total Bilirubin 0.5
AST 116 H
ALT 142 H
Alkaline Phosphatase 324 H
Vital Signs:
Vital Signs
Temp Pulse Resp BP Pulse Ox
97.7 F 61 15 104/70 97
12/18/23 04:12 12/18/23 06:00 12/18/23 04:00 12/18/23 06:00 12/17/23 22:00
I&O
12/17/23 12/18/23 12/19/23
06:59 06:59 06:59
Intake Total 1000 / 1000 1300 / 1300
Output Total 275 / 275 400 / 400
Balance 725 / 725 900 / 900
--- NOTE | 2023-12-18 08:49 | PTOTSP ---
SPEECH THERAPY SWALLOW EVALUATION:
Patient exhibits clinical signs of oropharyngeal dysphagia, likely chronic related to generalized weakness/deconditioning in the setting of advanced age, and acutely exacerbated by TME/sepsis secondary to Right heel cellulitis. Patient endorsing
occasional coughing with liquids at baseline; Takes medications whole in applesauce at baseline. Currently with stable respiratory status and WBC WNL. Patient remains at risk for aspiration and related complications given significant weakness and
limited mobility. Recommend IDDSI Level 6 Soft and Bite size diet, thin liquids via single sips only. Medications whole in applesauce. Aspiration precautions: 100% supervision/assistance with meals; Upright positioning; Small, single sips and bites;
Slow rate; Monitor for signs of aspiration; D/c oral diet if any decline in mental/respiratory status. ST to follow, monitor CXR/labs/temperature, assess diet tolerance and modify as appropriate, determine indication for VSE if warranted, and
provide continued diagnostic swallow therapy as appropriate.
RECOMMEND:
1) IDDSI Level 6 Soft and Bite size diet, thin liquids via single sips only
2) Medications whole in applesauce
3) Aspiration precautions: 100% supervision/assistance with meals; Upright positioning; Small, single sips and bites; Slow rate; Monitor for signs of aspiration; D/c oral diet if any decline in mental/respiratory status
4) ST to follow, assess diet tolerance and modify as appropriate, determine indication for VSE if warranted
[2023-12-18] MEDS: DAKIN'S SOLUTION 0.125% 1/4 STRENGTH TOPICAL (09:02)
[2023-12-18] MEDS: HEPARIN 5000 UNITS SC ×2 (09:03→19:28)
[2023-12-18] MEDS: SANTYL OINTMENT 1 APPLIC TOPICAL (09:03)
--- NOTE | 2023-12-18 09:54 | W.PN.ID1 ---
Date of Service
Date of Service: December 18, 2023
Today's Communication
Continue cefazolin
Assessment / Plan
# Right heel wound with probable surrounding cellulitis
-Developed blister from orthopedic boot, resulting in wound.
-Continue cefazolin
-Consulted wound/ostomy
-I will examine wound tomorrow with Wound RN.
# Antibiotic (doxy) intolerance with associated nausea, vomiting, and diarrhea
-Symptoms resolved
-Cancelled stool for C. difficile/culture orders.
# Low blood pressure due to hypovolemia from poor p.o. intake, resolved
-BP responded to IV fluids
# Leukocytosis resolved
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
Hypertension
Peripheral neuropathy
Paroxysmal atrial fibrillation
Heart failure with preserved EF
Tachybradycardia syndrome status post pacemaker placement
Interstitial cystitis
CKD
Anxiety/depression
Pancreatic insufficiency
Remote hx C. diff
Chief Complaint
-: Cellulitis
Subjective / Review of Systems
Heel wound less painful.
No N/V/D
Vital Signs / Physical Exam
Vital Signs
Vital Signs
Temp Pulse Resp BP Pulse Ox
97.7 F 61 15 104/70 97
12/18/23 04:12 12/18/23 06:00 12/18/23 04:00 12/18/23 06:00 12/17/23 22:00
Physical Exam
Constitutional: No Acute Distress and Comfortable
Cardiovascular: Regular Rate and S1/S2
Pulmonary: Clear
Gastrointestinal: Soft and Non Tender
Extremities: Venous Insufficiency (BLE)
Wound: Other (Right heel dressing dry)
Neurological: AO x 3
Objective Data
Lab Data
Lab Results
12/18/23 04:04
12/18/23 04:04
ESR 8 mm/hour (0-20) 12/16/23 13:02
Estimated Creat Clear 33 ml/min 12/18/23 04:04
Lactic Acid Cancelled 12/16/23 17:00
Total Bilirubin 0.5 mg/dl (0.2-1.3) 12/18/23 04:04
AST 116 U/L (14-36) H 12/18/23 04:04
ALT 142 U/L (0-35) H 12/18/23 04:04
Alkaline Phosphatase 324 U/L (38-126) H 12/18/23 04:04
C-Reactive Protein 57.30 mg/L (0.0-10.00) H 12/16/23 13:02
Most recent labs reviewed.
Micro Results:
12/16/23 20:28 MRSA Screen - Final
Nose No Methicillin Resistant Staphylococcus aureus isolated.
12/16/23 18:28 Blood Culture - Preliminary
Blood/Venous No Growth in 24 hours- Final report to follow
12/16/23 16:56 Blood Culture - Preliminary
Blood/Venous No Growth in 24 hours- Final report to follow
12/16/23 Right foot XRAY: Soft tissue ulceration along the posterior heel. No convincing radiographic evidence for active osteomyelitis.
[2023-12-18] MEDS: TOPAMAX 50 MG PO (10:11)
[2023-12-18] MEDS: PACERONE 200 MG PO ×2 (10:13→19:27)
[2023-12-18] MEDS: ULTRAM 25 MG PO ×2 (10:13→19:27)
[2023-12-18] MEDS: PROTONIX 40 MG PO (10:13)
--- NOTE | 2023-12-18 10:53 | CM ---
Met with patient and son Jason at bedside (Jason [phone])
IA competed.
Lives at [facility] 1 floor apartment on 3rd floor, elevator
Patient states was Independent using a rollator walker
DME: walker, shower chair, grab bars,transportation wheelchair
Current with [facility]
Prior SNF was in [place] where she previously resided.
Denies housing/transportation/food/utillities insecurities
Await PT/OT eval
PCP: Radha Lovett
Pharmacy: [address], [place] (Acute meds), [facility] through [facility] mail-in (chronic meds)
PLAN: Await PT/OT [facility], [facility] vs. SNF
[2023-12-18] MEDS: ZENPEP DELAYED RELEASE CAPSULE 1 CAPSULE PO ×2 (12:17→16:22)
[2023-12-18] MEDS: DEMADEX 20 MG PO (21:11)
[2023-12-18] MEDS: ELAVIL 20 MG PO (21:11)
[2023-12-19] VITALS (7 sets, daily range): BP systolic 97–136; BP diastolic 61–73; BMI 30.9
[2023-12-19] MEDS: NSS 1000 IV ×2 (03:56→18:10)
[2023-12-19] MEDS: DILAUDID 1 MG IV (03:56)
[2023-12-19 04:21] LABS: % Basophils 0.4 % (0-2); % Eosinophils 1.2 % (0-6); % Immature Granulocytes 0.6 % (0-0.5); % Lymphocytes 11.1 % (20.5-51.1); % Monocytes 16.8 % (1.7-9.3); % Neutrophils 69.9 % (42.2-75.2); Absolute Eosinophils 0.1 10^3/uL (0-0.7); Absolute Lymphocytes 0.8 10^3/uL (1.2-3.4); Absolute Monocytes 1.2 10^3/uL (0.1-0.6); Hematocrit 38.1 % (37.0-47.0); Hemoglobin 12.5 g/dL (12.0-16.0); Mean Corp Hgb Conc. 32.8 g/dL (33.0-37.0); Mean Corpuscular Hgb 33.5 pg (27.0-31.0); Mean Corpuscular Volume 102.1 fL (81.0-99.0); Mean Platelet Volume 11.4 fL (7.4-10.4); Nucleated Red Blood Cells % 0 %; Platelet Count 111 10^3/uL (130-400); Red Blood Cell Count 3.73 10^6/uL (4.20-5.40); Red Cell Dist. Width 15.8 % (11.5-14.5); White Blood Cell Count 7.2 10^3/uL (4.8-10.8)
[2023-12-19 04:41] LABS: Blood Urea Nitrogen 20 mg/dl (7-17); Calcium 8.1 mg/dl (8.4-10.2); Carbon Dioxide 17 mmol/L (22-30); Chloride 116 mmol/L (98-107); Estimated Creatinine Clearance 31 ml/min; Glucose 114 mg/dl (70-99); Potassium 4.1 mmol/L (3.5-5.1); Sodium 144 mmol/L (135-145); eGFR 43.54
[2023-12-19] MEDS: ANCEF 5 IV ×3 (05:13→21:11)
[2023-12-19] MEDS: DAKIN'S SOLUTION 0.125% 1/4 STRENGTH 1 ML TOPICAL (08:50)
[2023-12-19] MEDS: TOPAMAX 50 MG PO (08:51)
[2023-12-19] MEDS: HEPARIN 5000 UNITS SC ×2 (08:51→21:07)
[2023-12-19] MEDS: PROTONIX 40 MG PO (08:51)
[2023-12-19] MEDS: ULTRAM 25 MG PO ×2 (08:51→21:06)
[2023-12-19] MEDS: ZENPEP DELAYED RELEASE CAPSULE 1 CAPSULE PO ×3 (08:51→18:10)
[2023-12-19] MEDS: PACERONE 200 MG PO ×2 (08:51→21:07)
[2023-12-19] MEDS: SANTYL OINTMENT 1 APPLIC TOPICAL (08:52)
[2023-12-19] MEDS: LOPRESSOR 5 MG IV ×3 (09:03→22:26)
--- NOTE | 2023-12-19 11:23 | W.PN.HOSP.TC ---
Today's Communication/Plan
-
Tx to tele
Assessment / Plan
Assessment / Plan
A/P:
Sepsis due to right heel cellulitis:Improving ;HD stable
Continue IV antibiotic per ID
Not bacteremic. MRSA screen negative.
Wound care consult
A-fib RVR:
BP stable
Asymptomatic
Continue IV Lopressor as needed
Resumed amiodarone
she is not on home anticoagulation (apparently high risk fall and bleeding).
Hypotension:
Resovled
Likely combination of hypovolemia, sepsis, and medications.
Toxic metabolic encephalopathy:
Improving
Start diet today
Speech therapy eval
Nausea vomiting and diarrhea:
Concern for C. difficile but seems less likely
Probably related to adverse effects of oral antibiotics
None now
Acute kidney injury:
Improved
DC further IV fluids
Avoid nephrotoxic
Metabolic acidosis:
Related to GI losses and infection
Continue monitoring acidosis
Pacemaker status:
Pacemaker functioning well
Chronic diastolic CHF:
No exacerbation
Monitor volume status closely
Peripheral neuropathy:
Resume pain medication
Pancreatic insufficiency:
Resume pancreatic replacement medications
Hypertension:
Continue home antihypertensive
History of C. difficile:
History noted
At risk of recurrence but monitor
Hyponatremia:
Resolved
Hyperkalemia:
Resolved
DVT prophylaxis:
Heparin SQ
CODE STATUS:
Full code
DW son at bedside
Tx to tele
Anticipated Discharge: > 48 hours
Subjective/Interval History
-
Date of Service: December 19, 2023
Some improvement in the right foot and leg pain.
Denies any fever or chills.
Objective Data
-
Labs:
Laboratory Results
12/19/23
04:10
WBC 7.2
Hgb 12.5
Hct 38.1
Plt Count 111 L
Sodium 144
Potassium 4.1
Chloride 116 H
Carbon Dioxide 17 L
BUN 20 H
Creatinine 1.2 H
Glucose 114 H
Calcium 8.1 L
Vital Signs:
Vital Signs
Temp Pulse Resp BP Pulse Ox
98.0 F 136 19 116/64 96
12/19/23 11:08 12/19/23 09:03 12/19/23 08:00 12/19/23 09:03 12/18/23 19:41
I&O
12/18/23 12/19/23 12/20/23
06:59 06:59 06:59
Intake Total 1300 / 1300 1260 / 1260
Output Total 400 / 400 1550 / 1550
Balance 900 / 900 -290 / -290
Review of Systems
-
Respiratory: Denies Trouble Breathing
Cardiac: Denies Chest Pain
Abdomen/GI: Denies Abdominal Pain, Nausea or Vomiting
Neuro: Denies Dizzy
Physical Exam
-
General: Comfortable
Respiratory: Non Labored Respirations; Negative Accessory Resp Muscle Use
Cardiac: Regular Rhythm, S1/S2 and Tachycardic (A-fib)
GI: Soft
Skin: Other (Right lower leg cellulitis noted. Right foot in dressing. Will review the wound pictures once taken today.)
Neuro: AO x 3
Psych: Calm; Negative Confused
Data Reviewed
-
Labs: Labs Reviewed by me
--- NOTE | 2023-12-19 11:57 | CM ---
Patient from [facility] with Dx Sepsis due to right heel cellulitis, A-fib RVR, TME, NV&D, VLADISLAV. Receiving IVF, IV Abx. PT/OT recommend skilled rehab. Wound care nurse consult pending.
Met with patient, son Jason and ronal in law; all agree to short term SNF for rehab and wound care. SOn chooses [facility] (first choice) and [facility]. Son initally asked about [facility] - explained that is a higher level of care., explained the
differences between aR and SNF. Patient does not think she could tolerate 3hrs therapy/day. Agree that if [facility] will consider will let son know.
Spoke with Freddie Duarte; patient will not qualify for acute rehab at [facility].
SNF referrals placed.
Plan follow up SNF referrals.
--- NOTE | 2023-12-19 13:08 | WOUNDNOTE ---
[facility] RN note: Patient admitted with sepsis, worsening R heel pain. Patient's RLE boot (for a fracture) was removed by shredding specialist after 6 weeks and she had developed a R posterior calf DTI and R heel pressure injury suspect from boot that
was used.
See H&P for complete history.
PMH: a fib, CHF, neuropathy, pacer, interstitial cystitis, anemia, anxiety, CKD, pacer, pancreatic insufficiency.
Wound Location and type/assessment: Patient admitted with: R posterior calf DTI, R heel deep dermal stage 2 vs stage 3 pressure injury, Sacral/buttocks/madalyn mild MASD. +Pedal pulses heard via portable Doppler. Trace LE edema. Patient stated she
wears compression stockings at home.
Appetite: poor.
Pressure redistribution devices in place: Centrella max air bed. She assisted with turning in bed.
Plan: R heel and R calf dressing changed after patient was evaluated by Dr. Drake. Dr. Drake approved some changes in current wound care. Heels off bed with pillows with an air chair cushion on top. Patient turned to R semi side lying position with
help from LORETAT Lora.
Care plan to be updated and will follow as needed.
Note to case management requested for discharge: VN if goes home.
Recommend follow up at wound care center upon discharge.
--- NOTE | 2023-12-19 13:23 | PTCARENOTE ---
Rec'd pt this AM. very anxious and requires much support to take her meds, eat meals, etc. wound care complete with IRENE RN and Dr. Drake at bedside. Pt is in A fib with elevated HR. PRN Lopressor given
--- NOTE | 2023-12-19 13:38 | W.PN.ID1 ---
Date of Service
Date of Service: December 19, 2023
Today's Communication
Tomorrow, can transition to cephalexin 500mg po q8 through 12/24.
Assessment / Plan
# Right heel wound with surrounding cellulitis - improving
-Developed blister from orthopedic boot, resulting in wound.
-Appreciate wound/ostomy recommendations.
- Continue cefazolin (d4).
- Tomorrow, can transition to cephalexin 500mg po q8 through 12/24.
# s/p Antibiotic (doxy) intolerance with associated nausea, vomiting, and diarrhea
# Leukocytosis resolved
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
Hypertension
Peripheral neuropathy
Paroxysmal atrial fibrillation
Heart failure with preserved EF
Tachybradycardia syndrome status post pacemaker placement
Interstitial cystitis
CKD
Anxiety/depression
Pancreatic insufficiency
Remote hx C. diff
Chief Complaint
-: Cellulitis
Subjective / Review of Systems
No new complaints.
Vital Signs / Physical Exam
Vital Signs
Vital Signs
Temp Pulse Resp BP Pulse Ox
98.0 F 136 19 116/64 96
12/19/23 11:08 12/19/23 09:03 12/19/23 08:00 12/19/23 09:03 12/18/23 19:41
Physical Exam
Constitutional: No Acute Distress
Pulmonary: Clear
Gastrointestinal: Soft, Non Tender and Non Distended
Extremities: Edema and Venous Insufficiency (BLE)
Wound: Other (left posterior heel surface wound light pink tissue, surrounding erythema decreased. Left distal calf -soft tissue injury. )
Neurological: Awake and Alert
Objective Data
Lab Data
Lab Results
12/19/23 04:10
12/19/23 04:10
ESR 8 mm/hour (0-20) 12/16/23 13:02
Estimated Creat Clear 31 ml/min 12/19/23 04:10
Lactic Acid Cancelled 12/16/23 17:00
Total Bilirubin 0.5 mg/dl (0.2-1.3) 12/18/23 04:04
AST 116 U/L (14-36) H 12/18/23 04:04
ALT 142 U/L (0-35) H 12/18/23 04:04
Alkaline Phosphatase 324 U/L (38-126) H 12/18/23 04:04
C-Reactive Protein 57.30 mg/L (0.0-10.00) H 12/16/23 13:02
Most recent labs reviewed.
Micro Results:
12/16/23 18:28 Blood Culture - Preliminary
Blood/Venous No Growth in 48 hours- Final report to follow
12/16/23 16:56 Blood Culture - Preliminary
Blood/Venous No Growth in 48 hours- Final report to follow
12/16/23 20:28 MRSA Screen - Final
Nose No Methicillin Resistant Staphylococcus aureus isolated.
12/16/23 Right foot XRAY: Soft tissue ulceration along the posterior heel. No convincing radiographic evidence for active osteomyelitis.
Care Review
Plan reviewed with: Nurse (Alessandro Morales)
[2023-12-19] MEDS: ELAVIL 20 MG PO (21:06)
[2023-12-19] MEDS: DEMADEX 20 MG PO (21:06)
[2023-12-20] VITALS (7 sets, daily range): BP systolic 93–123; BP diastolic 64–78; PULSE 113–160; BMI 30.3
[2023-12-20] MEDS: ANCEF 5 IV (05:17)
[2023-12-20] MEDS: LOPRESSOR 5 MG IV ×2 (05:37→14:18)
[2023-12-20 06:06] LABS: Hematocrit 40.7 % (37.0-47.0); Hemoglobin 13.6 g/dL (12.0-16.0); Mean Corp Hgb Conc. 33.4 g/dL (33.0-37.0); Mean Corpuscular Hgb 32.9 pg (27.0-31.0); Mean Corpuscular Volume 98.5 fL (81.0-99.0); Mean Platelet Volume 11.2 fL (7.4-10.4); Platelet Count 149 10^3/uL (130-400); Red Blood Cell Count 4.13 10^6/uL (4.20-5.40); Red Cell Dist. Width 15.7 % (11.5-14.5); White Blood Cell Count 8.3 10^3/uL (4.8-10.8)
[2023-12-20 06:25] LABS: Blood Urea Nitrogen 17 mg/dl (7-17); Carbon Dioxide 18 mmol/L (22-30); Chloride 115 mmol/L (98-107); Estimated Creatinine Clearance 34 ml/min; Glucose 122 mg/dl (70-99); Potassium 3.2 mmol/L (3.5-5.1); Sodium 142 mmol/L (135-145); eGFR 48.33
[2023-12-20] MEDS: ULTRAM 25 MG PO ×2 (09:25→20:14)
[2023-12-20] MEDS: HEPARIN 5000 UNITS SC (09:25)
[2023-12-20] MEDS: SANTYL OINTMENT 1 APPLIC TOPICAL (09:25)
[2023-12-20] MEDS: TOPAMAX 50 MG PO (09:26)
[2023-12-20] MEDS: ZENPEP DELAYED RELEASE CAPSULE 1 CAPSULE PO ×3 (09:26→17:11)
[2023-12-20] MEDS: PROTONIX 40 MG PO (09:26)
[2023-12-20] MEDS: PACERONE 200 MG PO ×2 (09:26→20:15)
[2023-12-20] MEDS: KCL PO (09:50)
--- NOTE | 2023-12-20 12:01 | W.PN.ID1 ---
Date of Service
Date of Service: December 20, 2023
Today's Communication
- Transition cefazolin to cephalexin 500mg po q8 through 12/24.
-ID will sign off.
Assessment / Plan
# Right heel wound with surrounding cellulitis - improving
-Developed blister from orthopedic boot, resulting in wound.
-Appreciate wound/ostomy recommendations.
- Transition cefazolin (d4) to cephalexin 500mg po q8 through 12/24.
# s/p Antibiotic (doxy) intolerance with associated nausea, vomiting, and diarrhea
# Leukocytosis resolved
ID will sign off.
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
Hypertension
Peripheral neuropathy
Paroxysmal atrial fibrillation
Heart failure with preserved EF
Tachybradycardia syndrome status post pacemaker placement
Interstitial cystitis
CKD
Anxiety/depression
Pancreatic insufficiency
Remote hx C. diff
Chief Complaint
-: Cellulitis
Vital Signs / Physical Exam
Vital Signs
Vital Signs
Temp Pulse Resp BP Pulse Ox
97.8 F 108 25 122/72 96
12/20/23 07:58 12/20/23 08:00 12/20/23 08:00 12/20/23 05:37 12/20/23 04:05
Physical Exam
Constitutional: No Acute Distress
Gastrointestinal: Soft, Non Tender, Non Distended and Normal Bowel Sounds
Extremities: Venous Insufficiency
Wound: Other (Right heel dressing dry)
Objective Data
Lab Data
Lab Results
12/20/23 05:42
12/20/23 05:42
ESR 8 mm/hour (0-20) 12/16/23 13:02
Estimated Creat Clear 34 ml/min 12/20/23 05:42
Lactic Acid Cancelled 12/16/23 17:00
Total Bilirubin 0.5 mg/dl (0.2-1.3) 12/18/23 04:04
AST 116 U/L (14-36) H 12/18/23 04:04
ALT 142 U/L (0-35) H 12/18/23 04:04
Alkaline Phosphatase 324 U/L (38-126) H 12/18/23 04:04
C-Reactive Protein 57.30 mg/L (0.0-10.00) H 12/16/23 13:02
Most recent labs reviewed.
Micro Results:
12/16/23 18:28 Blood Culture - Preliminary
Blood/Venous No Growth in 72 hours- Final report to follow
12/16/23 16:56 Blood Culture - Preliminary
Blood/Venous No Growth in 72 hours- Final report to follow
12/16/23 20:28 MRSA Screen - Final
Nose No Methicillin Resistant Staphylococcus aureus isolated.
12/16/23 Right foot XRAY: Soft tissue ulceration along the posterior heel. No convincing radiographic evidence for active osteomyelitis.
--- NOTE | 2023-12-20 12:03 | PN.CDI ---
CDI
- -
CDI:
Physician Documentation Request
Admit Date: 12/16/23 17:54
Dear Doctor Babak,
Patient admitted for cellulitis.
12/18 Wound Care Note: 'R heel deep dermal stage 2 vs stage 3 pressure injury'
Physician documentation of the type and location of wounds is required for compliant documentation. Based on the above clinical findings and your assessment, please provide the following in your progress note:
1. Location of the ulcer/wound, including laterality.
2. Type (etiology) of ulcer/wound:
- Diabetic ulcer
- Arterial (ischemic) ulcer
- Traumatic wound
- Venous stasis ulcer
- Pressure (decubitus) ulcer
- Non-healing surgical wound
- Other
- Unable to determine
3. For a non-pressure ulcer, please indicate the depth/severity:
- Limited to the breakdown of skin
- With fat layer exposed
- With necrosis of muscle
- With necrosis of bone
- Other
- Unable to determine
4. If a pressure ulcer, please also include the stage* of the ulcer:
- Stage 1 - Skin intact, non-blanchable redness
- Stage 2 - Partial thickness loss of dermis, includes intact or open blister
- Stage 3 - Full thickness tissue not including bone, tendon or muscle
- Stage 4 - Full thickness tissue loss, including exposed bone, tendon or muscle
- Unstageable - Full thickness loss in which the base of the ulcer is covered by slough (yellow, handy, abbott, green or brown) and/or eschar (handy, brown or black) in the wound bed.
- Unable to determine
Use of terms such as suspected, likely, concern for, or probable (associated with a specific diagnosis that is being evaluated, monitored, or treated as if it exists) are acceptable and can be coded in the inpatient setting, when documented at the
time of discharge.
Thank you,
Hannah Méndez RN, BSN
CDI Specialist
Available via [place] text
Please use your independent medical judgment in providing your response.
*Source: National Pressure Ulcer Advisory Panel (NPUAP)
--- NOTE | 2023-12-20 12:12 | VATNOTE ---
Right arm with increased swelling at antecubital region, PCN notifies MD to assess. INT removed
[2023-12-20] MEDS: KEFLEX 500 MG PO ×2 (13:04→21:14)
[2023-12-20] MEDS: LOPRESSOR IV (13:06)
[2023-12-20] MEDS: KCL 40 MEQ PO (14:19)
--- NOTE | 2023-12-20 14:53 | W.PN.HOSP.TC ---
Addendum entered and electronically signed by Warner Hilliard MD 12/20/23 15:46:
'R heel deep dermal stage 2 vs stage 3 pressure injury'
Addendum entered and electronically signed by Warner Hilliard MD 12/20/23 14:59:
hypokalemia replete
Original Note:
Today's Communication/Plan
-
BB for HR control
DC planning base on HR control
Rt arm US for swelling
Assessment / Plan
Assessment / Plan
A/P:
Sepsis due to right heel cellulitis:Improving ;HD stable
Rt post heal open blister possibly sec to having had a cast in the foot
Not bacteremic. MRSA screen negative.
Wound care
cw abx per ID -switched to PO now
A-fib RVR:
BP stable
Asymptomatic
Continue IV Lopressor as needed
Add regular BB for now
Resumed amiodarone
she is not on home anticoagulation (apparently high risk fall and bleeding).
Hypokalemia -replete
Hypotension:
Resovled
Likely combination of hypovolemia, sepsis, and medications.
Toxic metabolic encephalopathy:
Improving
Nausea vomiting and diarrhea:
Concern for C. difficile but seems less likely
Probably related to adverse effects of oral antibiotics
None now
Acute kidney injury:
Improved
DC further IV fluids
Avoid nephrotoxic
Metabolic acidosis:
Related to GI losses and infection
Continue monitoring acidosis
Pacemaker status:
Pacemaker functioning well
Chronic diastolic CHF:
No exacerbation
Monitor volume status closely
Peripheral neuropathy:
Resume pain medication
Pancreatic insufficiency:
Resume pancreatic replacement medications
Hypertension:
Continue home antihypertensive
History of C. difficile:
History noted
At risk of recurrence but monitor
Hyponatremia:
Resolved
Hyperkalemia:
Resolved
DVT prophylaxis:
Heparin SQ
CODE STATUS:
Full code
Need SNF on DC.
Tx to tele
Anticipated Discharge: 24 - 48 hours
Subjective/Interval History
-
Date of Service: December 20, 2023
Denies any pain in right leg this afternoon.
Denies SOB or CP.
HR elevated but denies palpitations.
Objective Data
-
Labs:
Laboratory Results
12/20/23
05:42
WBC 8.3
Hgb 13.6
Hct 40.7
Plt Count 149 D
Sodium 142
Potassium 3.2 L
Chloride 115 H
Carbon Dioxide 18 L
BUN 17
Creatinine 1.1 H
Glucose 122 H
Calcium 8.0 L
Vital Signs:
Vital Signs
Temp Pulse Resp BP Pulse Ox
98.3 F 114 16 114/72 95
12/20/23 14:50 12/20/23 14:50 12/20/23 14:50 12/20/23 14:50 12/20/23 14:50
I&O
12/19/23 12/20/23 12/21/23
06:59 06:59 06:59
Intake Total 1260 / 1260 1260 / 1260
Output Total 1550 / 1550 1800 / 1800
Balance -290 / -290 -540 / -540
Review of Systems
-
Constitutional: Denies Fever
Abdomen/GI: Denies Abdominal Pain, Nausea or Vomiting
Neuro: Denies Dizzy
Physical Exam
-
General: No Apparent Distress
HEENT: Moist Mucous Membranes
Respiratory: Clear to Auscultation
Cardiac: S1/S2, Irregular Rhythm and Tachycardic
GI: Soft
Skin: Other (rt foot in dressing; wound pictures from yesterday reviewed.)
Neuro: AO x 3
Data Reviewed
-
Labs: Labs Reviewed by me
--- NOTE | 2023-12-20 15:40 | PTCARENOTE ---
pt transfferred to room 2130 tele at 1428. report given to Efren. this am pt noted to have plus 3 edema rue. hospitalist made aware. pt initially reluctant to take po potassium but later triedand was able to swallow whole in applesauce. pt wasoob
with physical therapy and sat up in chair x several hours. prn lopressor administered per parameters for HR greater than 120. wound care to right heel and calf completed per order. pt sent via stretcher with belongings.
[2023-12-20] MEDS: ELIQUIS 5 MG PO (20:16)
[2023-12-20] MEDS: TOPROL XL 25 MG PO (20:16)
[2023-12-20] MEDS: ELAVIL 20 MG PO (21:14)
[2023-12-20] MEDS: DEMADEX 20 MG PO (21:14)
[2023-12-21 03:10] VITALS: BP 120/60
--- NOTE | 2023-12-21 04:53 | DOWNTIME ---
There was a [employer] Downtime on 12/21/2023 from 0100 to 12/21/2023 at 0355. Downtime documentation of patient's care, including medication administrations, has been reconciled in the electronic record per guidelines. Refer to the
patient's paper chart under the miscellaneous tab to see printed paper medication records and downtime forms.
[2023-12-21] MEDS: KEFLEX 500 MG PO ×3 (05:35→20:24)
[2023-12-21 06:00] VITALS: BMI 30.7
[2023-12-21] MEDS: DILAUDID 1 MG IV (06:09)
[2023-12-21 07:20] VITALS: BP 117/47
[2023-12-21] MEDS: ULTRAM 25 MG PO ×3 (08:24→20:26)
[2023-12-21] MEDS: ZENPEP DELAYED RELEASE CAPSULE 1 CAPSULE PO ×3 (08:24→17:42)
[2023-12-21] MEDS: PROTONIX 40 MG PO (08:25)
[2023-12-21] MEDS: ELIQUIS 5 MG PO ×2 (08:25→20:25)
[2023-12-21] MEDS: TOPROL XL 25 MG PO ×2 (08:25→20:25)
[2023-12-21] MEDS: PACERONE 200 MG PO ×2 (08:25→20:25)
[2023-12-21] MEDS: SANTYL OINTMENT 1 APPLIC TOPICAL (08:26)
[2023-12-21] MEDS: TOPAMAX 50 MG PO (08:26)
[2023-12-21 08:57] LABS: Blood Urea Nitrogen 22 mg/dl (7-17); Calcium 8.1 mg/dl (8.4-10.2); Carbon Dioxide 22 mmol/L (22-30); Chloride 112 mmol/L (98-107); Estimated Creatinine Clearance 31 ml/min; Glucose 97 mg/dl (70-99); Potassium 3.1 mmol/L (3.5-5.1); Sodium 143 mmol/L (135-145); eGFR 43.54
--- NOTE | 2023-12-21 09:07 | VATNOTE ---
During routine assessment, evidence of leaking noted on the dressing of pt's midline. Dressing taken down and midline flushed repeatedly, leaking profusely at the midline insertion site. Midline discontinued due to leaking. Pt's upper arm
circumference measured at this time and noted to be 37.5 cm 10 cm above the antecubital fossa vs 32 cm at time of insertion. Pt denies pain and no obvious dependent swelling noted. MD notified and ultrasound recommended. MD to order peripheral
vascular ultrasound. Due to the risk associated with inserting a peripheral IV in an arm that possibly has a clot (R arm already dx with clot and unable to be used for PIV access), OK with waiting until after peripheral ultrasound before starting
a new peripheral IV.
[2023-12-21 11:20] VITALS: BP 137/64
[2023-12-21] MEDS: KCL 40 MEQ PO (12:51)
--- NOTE | 2023-12-21 13:10 | W.PN.HOSP.TC ---
Today's Communication/Plan
-
DC
Assessment / Plan
Assessment / Plan
A/P:
Sepsis due to right heel cellulitis:Improving ;HD stable
Rt post heal open blister possibly sec to having had a cast in the foot
Not bacteremic. MRSA screen negative.
Wound care
cw abx per ID -switched to PO now
A-fib RVR:
BP stable
Asymptomatic
Improved rate control
Resumed amiodarone
She is on home BB which was reinstituted since yesterday. HR under control.
Looks like she is on home anticoagulation - on low dose eliquis.
Rt UE DVT -line associated - Eliquis for one month
Lt UE swelling where she had midline - occlusive venous thrombus in the left brachial vein
Hypokalemia -replete
Hypotension:
Resovled
Likely combination of hypovolemia, sepsis, and medications.
Toxic metabolic encephalopathy:
Improving
Nausea vomiting and diarrhea:
Concern for C. difficile but seems less likely
Probably related to adverse effects of oral antibiotics
None now
Acute kidney injury:
Improved
DC further IV fluids
Avoid nephrotoxic
Metabolic acidosis:
Related to GI losses and infection
Continue monitoring acidosis
Pacemaker status:
Pacemaker functioning well
Chronic diastolic CHF:
No exacerbation
Monitor volume status closely
Peripheral neuropathy:
Resume pain medication
Pancreatic insufficiency:
Resume pancreatic replacement medications
Hypertension:
Continue home antihypertensive
History of C. difficile:
History noted
At risk of recurrence but monitor
Hyponatremia:
Resolved
Hyperkalemia on admission:
Resolved
DVT prophylaxis:
Heparin SQ
CODE STATUS:
Full code
Medically stable for discharge.
Discussed with son at bedside regarding findings, diagnosis, treatment and follow-up plan.
Total time of discharge 35 minutes
Anticipated Discharge: Today
Subjective/Interval History
-
Date of Service: December 21, 2023
Some discomfort from right heel area. She is doing better with ambulation though.
Denies any pain from the swollen right more than left upper extremity swelling. She was discovered to have DVT in the right arm yesterday.
Objective Data
-
Labs:
Laboratory Results
12/21/23
08:05
Sodium 143
Potassium 3.1 L
Chloride 112 H
Carbon Dioxide 22
BUN 22 H
Creatinine 1.2 H
Glucose 97
Calcium 8.1 L
Vital Signs:
Vital Signs
Temp Pulse Resp BP Pulse Ox
97.6 F 62 16 137/64 97
12/21/23 11:20 12/21/23 11:20 12/21/23 11:20 12/21/23 11:20 12/21/23 11:20
I&O
12/20/23 12/21/23 12/22/23
06:59 06:59 06:59
Intake Total 1260 / 1260 120 / 120
Output Total 1800 / 1800 50 / 50
Balance -540 / -540 70 / 70
Review of Systems
-
Respiratory: Denies Trouble Breathing
Cardiac: Denies Chest Pain or Palpitations
Abdomen/GI: Denies Nausea or Vomiting
Neuro: Denies Dizzy
Physical Exam
-
General: No Apparent Distress
Respiratory: Non Labored Respirations; Negative Accessory Resp Muscle Use
Cardiac: S1/S2 and Irregular Rhythm; Negative Tachycardic (improved HR)
Musculoskeletal: Edema, Right Upper Extrem and Edema, Left Upper Extrem
Neuro: AO x 3
Psych: Calm
Data Reviewed
-
Ultrasound: Report Reviewed by me (US arm r)
Labs: Labs Reviewed by me
--- NOTE | 2023-12-21 13:25 | W.DCSUMMARY ---
Discharge Summary
Discharge Data
Date of Admission: 12/16/23
Date of Discharge: 12/21/23
-
Pending Results: No
Hospital Course
Primary diagnosis:
Right heel wound with surrounding cellulitis
Bilateral upper extremity line related deep vein thrombosis
Secondary diagnosis:
Persistent atrial fibrillation
Chronic static heart failure
Peripheral neuropathy
Pancreatic insufficiency
Hypertension
Hospital course:
Patient recently had a right foot fracture needing to be on a boot for 6 weeks. The boot was very removed 2 weeks ago and there was a blister which opened up and caused the wound. She was put on cephalexin and then transition to doxycycline for 4
to 5 days. She then started develop nausea vomiting diarrhea and poor appetite. She had some change in mental status. She was on the lower side of blood pressure requiring IV fluids.
GI symptoms related antibiotics. Blood pressure remained stable after.
The right heel had a open wound which is basting cleaner had surrounding cellulitis though. Was seen by ID and she was initially put on IV antibiotics which transition to cephalexin at the time of discharge.
While she was here she needed midlines initially in the right and then left which had an associated DVT. She was on low-dose Eliquis for atrial fibrillation which was continued and lines were removed. Advised to keep right arm elevated.
A-fib was rate controlled with her amiodarone and beta-farhan.
He was on combination of diuretics and potassium supplementation and with his hypotension /dehydration he had little hyperkalemia on admission and when we stopped potassium supplementation he was hypokalemic so she would need her potassium
supplementation with diuretics. I will check a repeat BMP next week. She has baseline CKD 3. Her discharge Cr 1.2 better than her basline.
She was seen by PT and recommended rehab and she was [facility].
Consultants on board:
ID Kavita Steward
Discharge Plan
-
Patient Disposition: Shelter/SNF
Discharge Diagnosis/Procedures: Right foot wound with surrounding cellulitis. Bilateral upper extremity line related DVT; Afib
Diet: Other diet
Additional Diets: IDDSI 6 diet
Activity: As tolerated
Driving Restrictions: No driving
Bathing Restrictions: OK to Shower
Blood Work: BMP in one week
Other Services: PT, OT and ST
Activity Restrictions/Additional Instructions:
Wound Care Instructions
R posterior calf- clean with saline, silicone border foam, change daily.
Elevate heels off bed with pillow/s with air chair cushion on top.
Right Heel- clean with saline, apply collagenase (Santyl), cover with adaptic, alginate then foam dressing, change daily and prn drainage.
Barrier ointment to sacral/buttocks/perineum bid.
air mattress
turning schedule
Elevate heels off bed with pillow/s with air chair cushion on top.
Air chair cushion.
Follow up with orthopedic surgeon.
Follow up at wound care center call for an appointment.
Referrals:
Radha Membreno DO [Family Provider] -
Prescriptions:
New
cephalexin 500 mg Capsule
500 mg PO Q8H Qty: 1 0RF
Rx Instructions:
till 12/24
metoprolol succinate 25 mg Tablet Extended Release 24 Hr
25 mg PO BID Qty: 1 0RF
Rx Instructions:
It is her regular home med ;not a new med
Continued
amiodarone 200 mg Tablet
200 mg PO BID
Culturelle 10 billion cell Capsule
1 cap PO DAILY
ferrous sulfate 324 mg (65 mg iron) Tablet,Delayed Release (Dr/Ec)
324 mg PO DAILY Qty: 0
Creon 6,000-19,000 -30,000 unit Capsule,Delayed Release(Dr/Ec)
6,000 cap PO TID
Eliquis 2.5 mg Tablet
2.5 mg BID
torsemide 20 mg Tablet
20 mg HS
trazodone 50 mg Tablet
100 mg PO HS
calcitriol 0.5 mcg Capsule
0.5 mcg DAILY
lovastatin 20 mg Tablet
40 mg PO HS
estradiol 0.01 % (0.1 mg/gram) Cream
1 g VAGINAL BID
therapeutic multivitamin Tablet
1 tab PO DAILY
acetaminophen [Tylenol Extra Strength] 500 mg Tablet
1,000 mg PO Q6HPRN PRN (Reason: mild pain)
amitriptyline 10 mg Tablet
20 mg PO HS
cranberry 400 mg Capsule
400 mg PO DAILY
omeprazole 20 mg Capsule,Delayed Release(Dr/Ec)
20 mg PO DAILY
topiramate 50 mg Tablet
50 mg PO DAILY
melatonin 5 mg Tablet
5 mg PO HS
potassium chloride 20 mEq Tablet Extended Release
20 meq PO DAILY
Gemtesa 75 mg Tablet
75 mg PO DAILY
methenamine hippurate [Hiprex] 1 gram Tablet
1 g PO BID Qty: 1 0RF
Rx Instructions:
Start after finishing her current abx.
tramadol 25 mg Tablet
25 mg PO BID Qty: 6 0RF
Discontinued
cephalexin 500 mg Capsule
500 mg PO BID
Patient Comments:
starting 12/09/23 tske for 10 days
nystatin 100,000 unit/gram Powder
1 applic TOPICAL BIDPRN PRN (Reason: skin infection)
Discharge Orders:
Discharge Patient (As Directed); Ordered 12/21/23
Ordered By: Warner Hilliard
Discharge Date and Time
Print Language: NEPALESE
[2023-12-21 15:20] VITALS: BP 117/56
[2023-12-21] MEDS: TYLENOL 650 MG PO (15:47)
--- NOTE | 2023-12-21 15:53 | PTOTSP ---
SPEECH THERAPY SWALLOW FOLLOW UP NOTE:
Patient continues to exhibit clinical signs of mild oropharyngeal dysphagia, likely chronic related to weakness/deconditioning in the setting of advanced age. Patient appears to be tolerating IDDSI Level 6 soft and bite size diet, thin liquids
without signs of aspiration. Recommend diet upgrade to patient's baseline diet of Regular texture solids, thin liquids. Continue medications whole in puree. Aspiration precautions: Upright positioning; Small sips/bites; Slow rate; Monitor for signs
of aspiration. ST to continue to follow briefly, assess diet tolerance, determine indication for instrumental assessment of swallowing, and provide continued education regarding aspiration risks/precautions.
RECOMMEND:
1) Regular texture solids, thin liquids
2) medications whole in puree
3) Aspiration precautions: Upright positioning; Small sips/bites; Slow rate; Monitor for signs of aspiration
4) ST to continue to follow briefly
--- NOTE | 2023-12-21 16:07 | CM ---
met with patient at bedside.spoke with son nile.patient is stable for dc today.[facility] has a bed for patient tomorrow. i started
auth with [facility] auth id#[id number] and faxed clinicals to [phone].floor nurse ,administrative secretary ,attending and son aware of plans
Plan:snf at [facility] when auth is received from [facility].
--- NOTE | 2023-12-21 16:14 | VATNOTE ---
Spoke with about [facility] peripheral vascular ultrasound results. No IV needed at this time.
[2023-12-21] MEDS: MIRALAX 17 GRAMS PO (18:11)
[2023-12-21 19:28] VITALS: BP 125/56
[2023-12-21] MEDS: ELAVIL 20 MG PO (20:24)
[2023-12-21] MEDS: DEMADEX 20 MG PO (20:25)
[2023-12-21 22:58] VITALS: BP 111/57
[2023-12-22] VITALS (9 sets, daily range): BP systolic 99–117; BP diastolic 44–68; PULSE 65; O2SAT 98
[2023-12-22] MEDS: LOPRESSOR 12.5 MG PO (03:11)
--- NOTE | 2023-12-22 03:38 | PTCARENOTE ---
Tigertexted house provider that pt went into AFib on tele monitor with HR= 110-120s. Vital signs stable, pt asymptomatic and resting comfortably. Unable to give PRN lopressor due to lack of IV access. House provider ordered stat dose of 12.5mg PO
lopressor. Will continue to monitor.
[2023-12-22] MEDS: TYLENOL 650 MG PO (04:59)
[2023-12-22] MEDS: KEFLEX 500 MG PO ×3 (05:00→22:35)
--- NOTE | 2023-12-22 05:37 | W.PN.UPDATE ---
Update Note
Progress Note Update
RN notified CODING MACHINE OPERATOR, patient HR is Afib 110''s -120's, BP 117/60's. Unable to give IV Lopressor as patient does not have IV acces due to recurrent' clotting problem'. Advise RN to check for fever, also to give metoprolol 12.5 POx1. Patient asymptomatic
RN notified patient continuos to be with HR 110's -130. Temperature of 99
Advised to give Tylenol and give Amiodarone PO early
BP noted to be on low 97/57 HR continuos to be in 110-130, will order labs in AM as K was low yesterday and repleted.
advised RN to give Amiodarone 200 mg PO BP above 100's.
[2023-12-22] MEDS: PACERONE PO (05:53)
[2023-12-22 06:59] LABS: Blood Urea Nitrogen 24 mg/dl (7-17); Calcium 8.2 mg/dl (8.4-10.2); Carbon Dioxide 22 mmol/L (22-30); Chloride 108 mmol/L (98-107); Estimated Creatinine Clearance 31 ml/min; Glucose 111 mg/dl (70-99); Magnesium 1.3 mg/dl (1.6-2.3); Potassium 3.5 mmol/L (3.5-5.1); Sodium 139 mmol/L (135-145); eGFR 43.54
[2023-12-22] MEDS: MIRALAX PO (07:40)
[2023-12-22] MEDS: TOPAMAX 50 MG PO (07:42)
[2023-12-22] MEDS: PACERONE 200 MG PO ×2 (07:42→20:33)
[2023-12-22] MEDS: TOPROL XL 25 MG PO ×2 (07:42→20:33)
[2023-12-22] MEDS: ELIQUIS 5 MG PO ×2 (07:43→20:33)
[2023-12-22] MEDS: ULTRAM 25 MG PO ×2 (07:43→20:32)
[2023-12-22] MEDS: PROTONIX 40 MG PO (07:43)
[2023-12-22] MEDS: ZENPEP DELAYED RELEASE CAPSULE 1 CAPSULE PO ×2 (07:43→18:17)
--- NOTE | 2023-12-22 07:54 | PTCARENOTE ---
Addendum entered by Paloma Walker RN 12/22/23 10:23:
IV magnesium given through L foot IV site. pt oob to chair with x2 assist stand and pivot. Magnesium started once settled in the chair.
Addendum entered by Paloma Walker RN 12/22/23 07:56:
Amiodarone 200mg and Toprol Xl given. will monitor if PRN lopressor is needed.
Original Note:
mag 1.3 this am, pressures soft and has been tachy since 0225 this AM. No IV access so unable to give the iv lopressor overnight. made aware, IV access in L foot. morning medications given.
[2023-12-22] MEDS: MAGNESIUM SULFATE 50 IV (08:33)
--- NOTE | 2023-12-22 10:16 | CM ---
call from lonnie at [facility] with auth for [facility] starting 12/21 with nrd 12/25 .fax clinicals to [phone].ref# [id number].
gave info to mora at [facility].she has requested to schedule transport after 3pm.
Phone number for report is [phone] and fax number [phone].
[2023-12-22] MEDS: ZENPEP DELAYED RELEASE CAPSULE PO (12:50)
--- NOTE | 2023-12-22 13:20 | WOUNDNOTE ---
[facility] RN note: Spoke with LORETTA Dow who confirmed patient is on an air mattress.
--- NOTE | 2023-12-22 13:30 | W.PN.HOSP.TC ---
Today's Communication/Plan
-
Replete Mg
Add dulcolax
CW ABX
Hold on DC
Assessment / Plan
Assessment / Plan
A/P:
Sepsis due to right heel cellulitis:Improving ;HD stable
Rt post heal open blister possibly sec to having had a cast in the foot
Not bacteremic. MRSA screen negative.
Wound care
cw abx per ID -switched to PO now
A-fib RVR:
Rapid rate last night - this afternoon rate controlled.
Correct electrolytes. Replete Mg.
On home amiodarone
She is on home BB .
she is on home anticoagulation - on low dose eliquis.
Rt UE DVT -line associated - cw Eliquis
Lt UE swelling where she had midline - occlusive venous thrombus in the left brachial vein
Hypomagnesemia - replete
Hypotension:
Resovled
Likely combination of hypovolemia, sepsis, and medications.
Toxic metabolic encephalopathy:
Improving
Nausea , consitpation and poor intake.
Abdomen soft
Add dulcolax suppository
Minimize narcotic pain meds
Acute kidney injury:
Improved
DCed further IV fluids
Avoid nephrotoxic
Metabolic acidosis:
Related to GI losses and infection
Normalzied
Pacemaker status:
Pacemaker functioning well
Chronic diastolic CHF:
No exacerbation
Monitor volume status closely
Peripheral neuropathy:
Resume pain medication
Pancreatic insufficiency:
Resume pancreatic replacement medications
Hypertension:
Continue home antihypertensive
History of C. difficile:
History noted
At risk of recurrence but monitor
Hyponatremia:
Resolved
Hyperkalemia on admission:
Resolved
DVT prophylaxis:
Heparin SQ
CODE STATUS:
Full code
Hold on DC today
DW larisa,RN and CM
Anticipated Discharge: Within 24 hours
Subjective/Interval History
-
Date of Service: December 22, 2023
Patient last night was in A-fib and RVR. This morning she broke it and now in a paced rhythm at 60.
Patient also has been queasy and nauseous and has poor oral intake. Constipated. She was receiving narcotics for pain including IV dilaudid and she is now on tramadol as needed.
Apparently was noted to be confused this morning but currently okay. Son at bedside.
Patient is alert and oriented now. She denies any abdominal pain. She knows she is in the hospital because of right leg infection.
Objective Data
-
Labs:
Laboratory Results
12/22/23
06:18
Sodium 139
Potassium 3.5
Chloride 108 H
Carbon Dioxide 22
BUN 24 H
Creatinine 1.2 H
Glucose 111 H
Calcium 8.2 L
Vital Signs:
Vital Signs
Temp Pulse Resp BP Pulse Ox
97.4 F 74 16 105/59 95
12/22/23 11:55 12/22/23 11:55 12/22/23 11:55 12/22/23 11:55 12/22/23 11:55
I&O
12/21/23 12/22/23 12/23/23
06:59 06:59 06:59
Intake Total 120 / 120 960 / 960
Output Total 50 / 50
Balance 70 / 70 960 / 960
Review of Systems
-
Constitutional: Denies Fever
Respiratory: Denies Trouble Breathing
Cardiac: Denies Chest Pain
Abdomen/GI: Reports Nausea; Denies Abdominal Pain or Vomiting
Neuro: Denies Dizzy
Physical Exam
-
General: No Apparent Distress
Respiratory: Non Labored Respirations; Negative Accessory Resp Muscle Use
Cardiac: S1/S2 and Irregular Rhythm; Negative Tachycardic
GI: Soft, Nontender, Nondistended and Normal Bowel Sounds
Neuro: AO x 3
Psych: Calm; Negative Confused
Data Reviewed
-
Labs: Labs Reviewed by me
--- NOTE | 2023-12-22 13:33 | CM ---
Addendum entered by Vijaya Capone 12/22/23 13:48:
IMM explained & signed. In chart
Original Note:
Patient seen at bedside with son Jason.
Authorization received from [employer].
Patient will be discharged tomorrow per Dr. Hilliard
Sara from [facility] notified.
Ambulance transport forms on chart
PLAN: [facility]
Report #: [phone] and fax number [phone].
[2023-12-22] MEDS: SANTYL OINTMENT 1 APPLIC TOPICAL (14:46)
[2023-12-22] MEDS: COLACE 100 MG PO (20:32)
[2023-12-22] MEDS: DEMADEX 20 MG PO (22:35)
[2023-12-22] MEDS: ELAVIL 20 MG PO (22:35)
[2023-12-23 03:01] VITALS: BP 109/70
[2023-12-23] MEDS: LOPRESSOR 5 MG IV (03:23)
[2023-12-23 05:31] VITALS: BMI 29.6
[2023-12-23] MEDS: KEFLEX 500 MG PO ×3 (05:35→21:25)
[2023-12-23 07:20] VITALS: BP 124/63
[2023-12-23 08:13] LABS: Blood Urea Nitrogen 24 mg/dl (7-17); Calcium 7.9 mg/dl (8.4-10.2); Carbon Dioxide 24 mmol/L (22-30); Chloride 104 mmol/L (98-107); Estimated Creatinine Clearance 30 ml/min; Glucose 102 mg/dl (70-99); Magnesium 1.8 mg/dl (1.6-2.3); Potassium 2.9 mmol/L (3.5-5.1); Sodium 140 mmol/L (135-145); eGFR 43.54
[2023-12-23] MEDS: ULTRAM 25 MG PO ×2 (08:44→19:38)
[2023-12-23] MEDS: PROTONIX 40 MG PO (08:44)
[2023-12-23] MEDS: MIRALAX 17 GRAMS PO (08:44)
[2023-12-23] MEDS: ZENPEP DELAYED RELEASE CAPSULE 1 CAPSULE PO ×2 (08:44→12:40)
[2023-12-23] MEDS: SANTYL OINTMENT 1 APPLIC TOPICAL (08:44)
[2023-12-23] MEDS: PACERONE 200 MG PO ×2 (08:45→19:39)
[2023-12-23] MEDS: TOPAMAX 50 MG PO (08:45)
[2023-12-23] MEDS: COLACE 100 MG PO ×2 (08:45→19:38)
[2023-12-23] MEDS: ELIQUIS 5 MG PO ×2 (08:45→19:38)
[2023-12-23] MEDS: TOPROL XL 25 MG PO (08:45)
--- NOTE | 2023-12-23 09:16 | W.PN.HOSP.TC ---
Today's Communication/Plan
-
DC
Assessment / Plan
Assessment / Plan
A/P:
Sepsis due to right heel cellulitis:Improved
Rt post heal open blister possibly sec to having had a cast in the foot
Not bacteremic. MRSA screen negative.
Wound care
cw abx per ID -switched to PO now
A-fib RVR:
Intermittent elevations in HR noted but not symptomatic. No HF.
Correct electrolytes. Repleted Mg. Replete K
On home amiodarone
She is on home BB - increased the dose today.
Pt has pacemaker in place.
She is on home anticoagulation - on low dose eliquis.
Rt UE DVT -line associated - cw Eliquis . Advised arm elevation while resting.
Lt UE swelling where she had midline - occlusive venous thrombus in the left brachial vein
Hypokalemia - replete
Hypotension:
Resovled
Toxic metabolic encephalopathy:
Resolved
Nausea , consitpation .
No GI symptoms. No BM
Abdomen soft
CW bowel regimen
Acute kidney injury:
Improved;Cr better than baseline
Avoid nephrotoxic
Metabolic acidosis:
Related to GI losses and infection
Normalized
Chronic diastolic CHF:EF 60-65%
No exacerbation
Pt weight is stable compared to admission.
Her weight is much below the baseline compared to last year on beginning of this year. Would favor decreasing torsemide to 10 mg and follow weights closely.
Monitor volume status closely
Peripheral neuropathy:
Resumed pain medication
Pancreatic insufficiency:
Resumed pancreatic replacement medications
Hypertension:
Continue home antihypertensive
History of C. difficile:
History noted
At risk of recurrence but monitor
Hyponatremia:
Resolved
Hyperkalemia on admission:
Resolved
DVT prophylaxis:
Heparin SQ
CODE STATUS:
Full code
DC to rehab this afternoon
Total time of dc 35 min
Anticipated Discharge: Today
Subjective/Interval History
-
Date of Service: December 23, 2023
She feels better today. No more nausea. Has an appetite for breakfast- she ordered an omelette. Has not had a bowel movement; no abdominal pain.
Denies any palpitations, chest pain or shortness of breath.
Pain from the right foot is tolerable. Did not need pain medication.
Objective Data
-
Labs:
Laboratory Results
12/23/23
06:11
Sodium 140
Potassium 2.9 L
Chloride 104
Carbon Dioxide 24
BUN 24 H
Creatinine 1.2 H
Glucose 102 H
Calcium 7.9 L
Vital Signs:
Vital Signs
Temp Pulse Resp BP Pulse Ox
98.4 F 108 16 124/63 95
12/23/23 07:20 12/23/23 07:20 12/23/23 07:20 12/23/23 07:20 12/23/23 07:20
I&O
12/22/23 12/23/23 12/24/23
06:59 06:59 06:59
Intake Total 960 / 960 1490 / 1490
Balance 960 / 960 1490 / 1490
Review of Systems
-
Constitutional: Denies Fever
EENT: Denies Sore Throat
Respiratory: Denies Cough
Neuro: Denies Dizzy
Physical Exam
-
General: No Apparent Distress
HEENT: Moist Mucous Membranes
Respiratory: Clear to Auscultation and Non Labored Respirations; Negative Accessory Resp Muscle Use
Cardiac: S1/S2, Irregular Rhythm and Tachycardic (in low 100's )
GI: Soft and Nontender
Neuro: AO x 3
Psych: Calm; Negative Confused or Agitated
Data Reviewed
-
Labs: Labs Reviewed by me
[2023-12-23] MEDS: LOPRESSOR 25 MG PO (09:45)
[2023-12-23] MEDS: KCL 40 MEQ PO ×2 (09:45→12:40)
--- NOTE | 2023-12-23 10:57 | CM ---
Addendum entered by Vijaya Capone 12/23/23 11:14:
[facility]
REPORT # [phone]
FAX #: [phone]
Original Note:
tt Dr. Hilliard
Patient willl discharge today to [facility]
Sara at [facility] notified. Bed available. Auth given to [facility] yesterday.
Auth Ref #: [id number]
Fax clinicals to [phone]
Notified son Jason
PLAN: Discharge to [facility]
ambulance forms on chart - requesting 3:30-4 transport
[facility]
Report #:
Fax #:
[2023-12-23 11:59] VITALS: BP 105/55
[2023-12-23 15:23] VITALS: BP 101/56
[2023-12-23] MEDS: ZENPEP DELAYED RELEASE CAPSULE PO (18:03)
[2023-12-23 19:36] VITALS: BP 114/60
[2023-12-23] MEDS: TOPROL XL 50 MG PO (19:39)
[2023-12-23] MEDS: ELAVIL 20 MG PO (21:25)
[2023-12-23 21:26] VITALS: BP 115/54
[2023-12-23] MEDS: DEMADEX 20 MG PO (21:27)
== END 2023-12-23 21:50 | DRG 871 ==
LOC: 2 NORTH 17:54
PROVIDERS: Nurse Practitioner Gerontology; Physician Assistant; Physician Assistant Medical; ADMITTING PHYSICIAN Hospitalist; ATTENDING PHYSICIAN Internal Medicine; CONSULT PHYSICIAN Internal Medicine Infectious Disease; EMERGENCY PHYSICIAN Emergency Medicine; FAMILY PHYSICIAN Hospitalist
DX: A41.9 Sepsis, unspecified organism (principal); G92.8 Other toxic encephalopathy; L89.613 Pressure ulcer of right heel, stage 3; E87.20 Acidosis, unspecified; E87.1 Hypo-osmolality and hyponatremia; I48.19 Other persistent atrial fibrillation; I50.32 Chronic diastolic (congestive) heart failure; I13.0 Hypertensive heart and chronic kidney disease with heart failure and stage 1 through stage 4 chronic kidney disease, or unspecified chronic kidney disease; N17.9 Acute kidney failure, unspecified; L03.115 Cellulitis of right lower limb; K52.1 Toxic gastroenteritis and colitis; I82.622 Acute embolism and thrombosis of deep veins of left upper extremity; T82.868A Thrombosis due to vascular prosthetic devices, implants and grafts, initial encounter; E78.5 Hyperlipidemia, unspecified; D64.9 Anemia, unspecified; E86.0 Dehydration; E87.6 Hypokalemia; F32.A Depression, unspecified; F41.9 Anxiety disorder, unspecified; G62.9 Polyneuropathy, unspecified; I95.9 Hypotension, unspecified; N18.30 Chronic kidney disease, stage 3 unspecified; K86.89 Other specified diseases of pancreas; K21.9 Gastro-esophageal reflux disease without esophagitis; I49.5 Sick sinus syndrome; I25.10 Atherosclerotic heart disease of native coronary artery without angina pectoris; N30.10 Interstitial cystitis (chronic) without hematuria; T36.4X5A Adverse effect of tetracyclines, initial encounter; D72.829 Elevated white blood cell count, unspecified; E83.42 Hypomagnesemia; Z95.0 Presence of cardiac pacemaker; Z79.01 Long term (current) use of anticoagulants; Z79.899 Other long term (current) drug therapy; Z88.6 Allergy status to analgesic agent; Z88.1 Allergy status to other antibiotic agents; Z88.2 Allergy status to sulfonamides; Z88.8 Allergy status to other drugs, medicaments and biological substances; Y71.2 Prosthetic and other implants, materials and accessory cardiovascular devices associated with adverse incidents
CPT/HCPCS: 73630; 80048; 80053; 80076; 80202; 82805; 83605; 83735; 85025; 85027; 85652; 86140; 87040; 87070; 92526; 92610; 93005; 93971; 96374; 96375; 97110; 97163; 97167; 97530; 97535; 99285

== ENCOUNTER → 2023-12-26 09:42 | Outpatient (REF) | payer MEDICARE, SELFPAY ==
[2023-12-26 10:22] LABS: % Basophils 0.5 % (0-2); % Eosinophils 2.9 % (0-6); % Immature Granulocytes 0.5 % (0-0.5); % Lymphocytes 14.7 % (20.5-51.1); % Monocytes 18.3 % (1.7-9.3); % Neutrophils 63.1 % (42.2-75.2); Absolute Eosinophils 0.2 10^3/uL (0-0.7); Absolute Lymphocytes 0.9 10^3/uL (1.2-3.4); Absolute Monocytes 1.1 10^3/uL (0.1-0.6); Absolute Neutrophils 3.9 10^3/uL (1.4-6.5); Hematocrit 37.7 % (37.0-47.0); Hemoglobin 12.6 g/dL (12.0-16.0); Mean Corp Hgb Conc. 33.4 g/dL (33.0-37.0); Mean Corpuscular Hgb 33.2 pg (27.0-31.0); Mean Corpuscular Volume 99.2 fL (81.0-99.0); Mean Platelet Volume 12.2 fL (7.4-10.4); Nucleated Red Blood Cells % 0 %; Platelet Count 170 10^3/uL (130-400); Red Cell Dist. Width 15.1 % (11.5-14.5); White Blood Cell Count 6.2 10^3/uL (4.8-10.8)
[2023-12-26 10:29] LABS: Blood Urea Nitrogen 32 mg/dl (7-17); Calcium 8.3 mg/dl (8.4-10.2); Carbon Dioxide 25 mmol/L (22-30); Chloride 102 mmol/L (98-107); Glucose 82 mg/dl (70-99); Potassium 3.6 mmol/L (3.5-5.1); Sodium 136 mmol/L (135-145); eGFR 36.19
== END ==
LOC: OLABP 09:42
PROVIDERS: ATTENDING PHYSICIAN Family Medicine
DX: A41.9 Sepsis, unspecified organism (principal); L97.419 Non-pressure chronic ulcer of right heel and midfoot with unspecified severity; I50.9 Heart failure, unspecified; M62.81 Muscle weakness (generalized); I48.11 Longstanding persistent atrial fibrillation
CPT/HCPCS: 36415; 80048; 85025

== ENCOUNTER → 2023-12-30 11:25 | Outpatient (REF) | payer MEDICARE, SELFPAY ==
[2023-12-30 12:40] LABS: Hematocrit 36.3 % (37.0-47.0); Hemoglobin 12.2 g/dL (12.0-16.0); Mean Corp Hgb Conc. 33.6 g/dL (33.0-37.0); Mean Corpuscular Hgb 33.3 pg (27.0-31.0); Mean Corpuscular Volume 99.2 fL (81.0-99.0); Mean Platelet Volume 12.2 fL (7.4-10.4); Platelet Count 198 10^3/uL (130-400); Red Blood Cell Count 3.66 10^6/uL (4.20-5.40); Red Cell Dist. Width 14.7 % (11.5-14.5); White Blood Cell Count 7.2 10^3/uL (4.8-10.8)
[2023-12-30 12:51] LABS: Blood Urea Nitrogen 30 mg/dl (7-17); Calcium 8.5 mg/dl (8.4-10.2); Carbon Dioxide 24 mmol/L (22-30); Chloride 105 mmol/L (98-107); Glucose 84 mg/dl (70-99); Potassium 3.5 mmol/L (3.5-5.1); Sodium 136 mmol/L (135-145); eGFR 36.19
== END ==
LOC: OLABP 11:25
PROVIDERS: ATTENDING PHYSICIAN Family Medicine
DX: A41.9 Sepsis, unspecified organism (principal); I50.9 Heart failure, unspecified; I10 Essential (primary) hypertension; M62.81 Muscle weakness (generalized); I48.11 Longstanding persistent atrial fibrillation
CPT/HCPCS: 36415; 80048; 85027

== ENCOUNTER → 2024-01-05 10:41 | Outpatient (REF) | payer MEDICARE, SELFPAY ==
[2024-01-05 11:03] LABS: % Basophils 0.5 % (0-2); % Eosinophils 2.5 % (0-6); % Immature Granulocytes 0.6 % (0-0.5); % Lymphocytes 17.3 % (20.5-51.1); % Monocytes 17.7 % (1.7-9.3); % Neutrophils 61.4 % (42.2-75.2); Absolute Eosinophils 0.2 10^3/uL (0-0.7); Absolute Immature Granulocytes 0.1 10^3/uL (0-0.05); Absolute Lymphocytes 1.4 10^3/uL (1.2-3.4); Absolute Monocytes 1.4 10^3/uL (0.1-0.6); Absolute Neutrophils 4.9 10^3/uL (1.4-6.5); Hematocrit 37.4 % (37.0-47.0); Hemoglobin 12.7 g/dL (12.0-16.0); Mean Corpuscular Hgb 33.1 pg (27.0-31.0); Mean Corpuscular Volume 97.4 fL (81.0-99.0); Mean Platelet Volume 11.6 fL (7.4-10.4); Nucleated Red Blood Cells % 0 %; Platelet Count 155 10^3/uL (130-400); Red Blood Cell Count 3.84 10^6/uL (4.20-5.40); Red Cell Dist. Width 14.5 % (11.5-14.5); White Blood Cell Count 7.9 10^3/uL (4.8-10.8)
[2024-01-05 11:50] LABS: TSH Reflex To Free T4 2.13 uIU/ml (0.47-4.68)
== END ==
LOC: OLABP 10:41
PROVIDERS: ATTENDING PHYSICIAN Family Medicine
DX: A41.9 Sepsis, unspecified organism (principal); L97.419 Non-pressure chronic ulcer of right heel and midfoot with unspecified severity; I50.9 Heart failure, unspecified; I10 Essential (primary) hypertension; M62.81 Muscle weakness (generalized); I48.11 Longstanding persistent atrial fibrillation
CPT/HCPCS: 36415; 84443; 85025

== ENCOUNTER 2024-01-13 16:53 | Inpatient (IN) | payer MEDICARE, SELFPAY ==
[2024-01-13 13:47] VITALS: BP 99/63
[2024-01-13 13:51] VITALS: BMI 33.1
--- NOTE | 2024-01-13 13:52 | ED.GENMED ---
History of Present Illness
General
Chief Complaint: Weakness
Source: patient
Exam Limitations: none
Time Seen by Provider: 01/13/24 13:47
Nursing documentation reviewed up to this point in time: agreed with
History of Present Illness
History of Present Illness:
88 yr old female with history of A-fib on Eliquis CHF hyperlipidemia pacemaker reflux recent broken foot Sent by [facility] for worsening weakness. Patient was recently discharged from rehab following a right broken and since then has had
increasing weakness. It is documented on [facility] sheet that she has needed two-person assistance for transfer and for mobility and she is now using her wheelchair prior to going to skilled rehab she was able to ambulate with a rollator. It is
documented the patient has had a significant decline in the past 2 days. Patient presents awake alert Davey x 3 she does complain of feeling very weak.
Past History
Past History
ED Past Medical History: Arrthythmia, CHF, GERD and Other (Chronic kidney disease)
ED Past Surgical History: Appendectomy, Cardiac (Pacemaker), Cholecystectomy, Orthopedic and Tonsilectomy
Review of Systems
Review of Systems
Allergies reviewed?: Yes
All Other Systems: ROS reviewed and negative except as documented in HPI and ROS
Constitutional: Reports fatigue; Denies fever or chills
EENT: Reports no symptoms
Respiratory: Reports no symptoms; Denies trouble breathing
Cardiac: Reports no symptoms
ABD/GI: Reports no symptoms
: Reports no symptoms
Musculoskeletal: Reports no symptoms
Skin: Reports no symptoms
Neurological: Reports no symptoms
Psychiatric: Reports no symptoms
Phy Exam
General Physical Exam
General Presentation: no apparent distress
General age: appears stated age
General Skin: warm and dry
General Habitus: normal
General Mental: alert
General Hydration: dry mucous membranes
Cardiovascular Exam
Cardiovascular Exam: regular rate/rhythm, no murmur and normal peripheral pulses
Pulmonary Exam
Pulmonary Exam: lungs clear and no respiratory distress
Genitourinary Exam Female
Exam Female: other (Excoriated red skin to perineum and buttocks)
Neurological Exam
Neurological Exam: alert
Musculoskeletal Exam
Musculoskeletal Exam: full ROM and other (+ swelling to b/l l/e healing wound to right lower leg and posterior ankle /heel region )
Skin Exam
Skin Exam: normal color and warm/dry
Psychiatric Exam
Psychiatric Exam: normal mood/affect
Course
Orders/Labs/Results
Orders:
Orders
01/13/24 13:45
Electrocardiogram (*1) Urgent
Reason for Study: Other
Other Reason for Exam: Possible Sepsis
Cardiac Monitoring- Treatment ONCE
IV Insert/Care/Rem.- Treatment PRN
O2 Therapy [RESP] Urgent
Titrate/Wean O2 to maintain O2 sat greater than (%): 93
Special Instructions: TO MAINTAIN CONTINUOUS O2 SATS > OR = 93%
Pulse Ox/cont/shift [RESP] Urgent
Quantity: 1
Special Instructions: CONTINUOUS
01/13/24 13:46
EKG- Treatment ONCE
01/13/24 13:55
Chest [CR Chest - 2 Views ] Urgent
Comment:
Reason For Exam: weakness
01/13/24 13:56
0.9% Sodium Chloride 500 ml [Nss] 500 ml IV BOLUS
01/13/24 14:00
WOUND/OSTOMY CONSULT Routine
Reason for Consult: significant madalyn area breakdown
Gregory Catheter [Catheter- Indwelling] As Directed
Reason for insertion: Stage 3 or 4 Ulcer
Type: Indwelling
Comment: see nurse note
Assess insertion reason daily.Remove if no longer applicable: Yes
01/13/24 14:16
COVID-19 Antigen Urgent
Source: Nasal Swab
Lactic Acid Q4H
Comment: ON ICE, CANCEL 2ND ORDER IF FIRST LACTIC ACID LEVEL <2
Urinalysis Reflex To Culture Urgent
Date Specimen was Collected: 01/13/24
Time Specimen was Collected: 13:46
Urine Microscopic Reflex Cult Urgent
Influenza A+B Rapid Molecular Urgent
STEVE Source: Nasal Swab
Specimen Description:
Urine Culture Urgent
STEVE Source: U
Specimen Description:
Date Specimen was Collected: 01/13/24
Time Specimen was Collected: 13:46
01/13/24 14:36
BNP [NT-proBNP] Urgent
Complete Blood Count/With Diff Urgent
Comprehensive Metabolic Panel Urgent
Lactic Acid Q4H
Comment: ON ICE, CANCEL 2ND ORDER IF FIRST LACTIC ACID LEVEL <2
01/13/24 15:08
CefTRIAXone [Rocephin] 1,000 mg IV NOW STA
01/13/24 15:18
Heel Pressure Device As Directed
Type of boot: Fiber Filled Boot
Other type of heel pressure relief device: both heels
Specialty Mattress As Directed
Type of Mattress: Air Mattress
Other type of speciality mattress: nemours foundation air or centrea air bed
Wound Care As Directed
Location of Wound: MULTIPLE
Treatment of Wound: Sacrum/perirectal: clean with soap and water, thin layer of barrier cream daily and prn
soilage
R posterior leg and heel: clean with saline, smear of honey gel, adaptic and dry dressing
change daily and prn drainage.
L lateral heel: clean with saline, adaptic, gauze and polly change daily and prn drainage
01/14/24 08:00
Petrolatum/Mineral Oil [Hydrophor] See Dose Instructions TOPICAL DAILY
Abnormal Lab Results
01/13/24 01/13/24
14:16 14:36
WBC 15.0 H 10^3/uL
(4.8-10.8)
RBC 3.78 L 10^6/uL
(4.20-5.40)
MCV 101.6 H fL
(81.0-99.0)
MCH 32.8 H pg
(27.0-31.0)
MCHC 32.3 L g/dL
(33.0-37.0)
MPV 11.3 H fL
(7.4-10.4)
Abs Immat Gran (auto) 0.1 H 10^3/uL
(0-0.05)
Absolute Neuts (auto) 11.4 H 10^3/uL
(1.4-6.5)
Absolute Monos (auto) 2.1 H 10^3/uL
(0.1-0.6)
Immature Gran % 0.6 H %
(0-0.5)
Neutrophils % 75.9 H %
(42.2-75.2)
Lymphocytes % 9.6 L %
(20.5-51.1)
Monocytes % 13.8 H %
(1.7-9.3)
Sodium 131 L mmol/L
(135-145)
Potassium 5.5 H mmol/L
(3.5-5.1)
BUN 49 H mg/dl
(7-17)
Creatinine 2.7 H mg/dL
(0.6-1.0)
Glucose 107 H mg/dl
(70-99)
AST 171 H U/L
(14-36)
ALT 172 H U/L
(0-35)
Alkaline Phosphatase 201 H U/L
(38-126)
Total Protein 4.9 L g/dl
(6.3-8.2)
Albumin 2.6 L g/dl
(3.5-5.0)
Ur Occult Blood Reflex 4+ A
(Negative)
Leukocyte Esterase Rfl 2+ A
(Negative)
Urine WBC (Reflex) 80-90 A /HPF
(0-5)
Urine Bacteria (Reflex) Few A
(Negative)
Urine Albumin (Reflex) 3+ A
(Neg - Trace)
01/13/24 14:36
01/13/24 14:36
Vital Signs
Initial and Last Documented VS:
Initial Vital Signs
Temp Pulse Resp BP Pulse Ox
97.9 F 81 14 99/63 96
01/13/24 13:47 01/13/24 13:47 01/13/24 13:47 01/13/24 13:47 01/13/24 13:47
Last Documented Vital Signs
Temp Pulse Resp BP Pulse Ox
97.9 F 66 25 99/63 96
01/13/24 13:47 01/13/24 13:53 01/13/24 13:53 01/13/24 13:47 01/13/24 13:47
MDM/Problems Addressed
Differential Diagnosis Includes:
not limited to: infection
MDM/Problems Addressed:
Patient is an 88-year-old female who was sent from [facility] for increasing weakness. Patient was recently in rehab for right foot injury however since going back feels very weak. She is afebrile however white count is 15,000. She is awake
alert and able to answer questions. Her urine during straight cath appears obviously infected with cloudy urine. Urine is clearly infected on urinalysis in addition patient with worsening renal function , her baseline creatine is between 1.2-1.4
and is 2.7 her in the ED. pt given sm fluid bolus as he does have history of CHF.
In addition on exam patient has excoriation to bilateral buttock, and perennial area, gregory cath was inserted to avoid and worsening of excoriated tissue. Patient adm oncology to the hospital for UTI weakness renal insufficiency
Chronic conditions affecting care:
A-fib CHF hyperlipidemia pacemaker
*Critical Care Note
Total Time (30-74mins, 75-104mins- exclusive of procedures): Not Applicable
ED Attending Note
-
Portions of this chart may have been created with voice recognition software.� Occasional wrong word or��sound alike� substitutions may have occurred due to the inherent limitations of voice recognition software.
Discharge Plan
Departure
Patient Disposition: Admit
Date of Disposition: 01/13/24
Time of Disposition: 15:42
Admit to: Med/Surg
Admit to doctor: hospitalist
Presentation/result/management discussed w/ accepting MD/DO: Hospitalist
Patient with high blood pressure during this ER visit?: No
Condition: Fair
Covid-19: Not Applicable
Discharge Problem:
Weakness, Acute UTI, Acute renal insufficiency
Prescriptions:
No Action
amiodarone 200 mg Tablet
200 mg PO BID@0900,1700
Culturelle 10 billion cell Capsule
1 cap PO DAILY
Creon 6,000-19,000 -30,000 unit Capsule,Delayed Release(Dr/Ec)
6,000 cap PO TID@0900,1300,1700
Eliquis 2.5 mg Tablet
2.5 mg BID
trazodone 50 mg Tablet
50 mg PO HS
calcitriol 0.5 mcg Capsule
0.5 mcg DAILY
estradiol 0.01 % (0.1 mg/gram) Cream
1 g VAGINAL DAILYPRN PRN (Reason: estrogen supplement)
acetaminophen [Tylenol Extra Strength] 500 mg Tablet
1,000 mg PO Q6HPRN PRN (Reason: mild pain)
amitriptyline 10 mg Tablet
20 mg PO HS
omeprazole 20 mg Capsule,Delayed Release(Dr/Ec)
20 mg PO DAILY
topiramate 50 mg Tablet
50 mg PO DAILY
melatonin 5 mg Tablet
5 mg PO HS
potassium chloride 20 mEq Tablet Extended Release
20 meq PO DAILY
Gemtesa 75 mg Tablet
75 mg PO DAILY
acetaminophen 325 mg Tablet
650 mg PO Q4HPRN PRN (Reason: fever >100)
tramadol 50 mg Tablet
25 mg PO BID@0900,1700
magnesium hydroxide [Milk of Magnesia] 400 mg/5 mL Suspension
30 ml PO Q98H PRN (Reason: day 4 no bm)
ferrous sulfate 325 mg (65 mg iron) Tablet
325 mg PO DAILY
lidocaine 5 % Adhesive Patch,Medicated
1 patch TOPICAL DAILY
Enema 19-7 gram/118 mL Enema
118 ml HI DAILYPRN PRN (Reason: day 6 no bm)
mirtazapine 15 mg Tablet
7.5 mg PO HS
torsemide 20 mg tablet
20 mg PO DAILY
docusate sodium 100 mg capsule
100 mg PO BID@0900,1700
Interventions
Interventions:
*Risk Screen - Suicide Last Done: 01/13/24 13:47
*General Assessment Last Done: 01/13/24 13:47
*Neglect/Abuse Screening Last Done: 01/13/24 13:47
ED- Fall Risk Assessment Last Done: 01/13/24 13:53
ED- Cardiac Assessment Last Done: 01/13/24 13:53
ED- Neurological Assessment Last Done: 01/13/24 13:53
ED- Pulmonary Assessment Last Done: 01/13/24 13:53
Discharge Date and Time
Print Language: SWEDISH
[2024-01-13] MEDS: NSS 500 IV (14:00)
[2024-01-13 14:39] LABS: Urine Albumin 3+ (Neg - Trace); Urine Bilirubin Negative (Negative); Urine Character Very Cloudy (Clear); Urine Color Yellow; Urine Glucose Negative (Negative); Urine Ketone Negative (Negative); Urine Leukocyte 2+ (Negative); Urine Nitrite Negative (Negative); Urine Occult Blood 4+ (Negative); Urine Specific Gravity 1.015 (<1.030); Urine Urobilinogen Negative (Neg - 1+)
--- NOTE | 2024-01-13 14:42 | EDRN ---
Attempted to straight cath pt for clean urine specimen. Removed pts brief and it was saturated in urine with blood noted in back of brief. Pt vagina and rectum excoriated. Ulcer noted on right labia. bilateral labia is dark red and swollen.
Pts rectum has black noted around rectum with varying stages of dark red throughout perineum area. Some parts of wound not stageable. Pt denies any pain in this area. Alice Garland [employer] SALES CONSULTANT at bedside and gave verbal order for pt to have indwelling
gregory d/t incontinence and pts stage 3+ wound on vagina, rectum, perineum and buttocks.
Following gregory insertion pus-filled urined drained 300mls into gregory bag.
[2024-01-13 14:45] LABS: COVID-19 Antigen Negative (Negative)
[2024-01-13 14:46] LABS: Urine Bacteria Few (Negative); Urine Red Blood Cell 0-2 /HPF (0-2); Urine Squamous Cell 0-2 /LPF (Few); Urine White Cell 80-90 /HPF (0-5)
[2024-01-13 14:47] LABS: % Basophils 0.1 % (0-2); % Immature Granulocytes 0.6 % (0-0.5); % Lymphocytes 9.6 % (20.5-51.1); % Monocytes 13.8 % (1.7-9.3); % Neutrophils 75.9 % (42.2-75.2); Absolute Immature Granulocytes 0.1 10^3/uL (0-0.05); Absolute Lymphocytes 1.4 10^3/uL (1.2-3.4); Absolute Monocytes 2.1 10^3/uL (0.1-0.6); Absolute Neutrophils 11.4 10^3/uL (1.4-6.5); Hematocrit 38.4 % (37.0-47.0); Hemoglobin 12.4 g/dL (12.0-16.0); Mean Corp Hgb Conc. 32.3 g/dL (33.0-37.0); Mean Corpuscular Hgb 32.8 pg (27.0-31.0); Mean Corpuscular Volume 101.6 fL (81.0-99.0); Mean Platelet Volume 11.3 fL (7.4-10.4); Nucleated Red Blood Cells % 0 %; Platelet Count 185 10^3/uL (130-400); Red Blood Cell Count 3.78 10^6/uL (4.20-5.40); Red Cell Dist. Width 14.2 % (11.5-14.5)
[2024-01-13 14:58] LABS: Lactic Acid 1.8 mmol/L (0.7-2.0)
--- NOTE | 2024-01-13 15:15 | WOUNDNOTE ---
SACRUM AND MAGUE RECTAL AREA
--- NOTE | 2024-01-13 15:17 | WOUNDNOTE ---
LEGS AND HEELS
[2024-01-13 15:20] LABS: ALT (SGPT) 172 U/L (0-35); AST (SGOT) 171 U/L (14-36); Albumin 2.6 g/dl (3.5-5.0); Alkaline Phosphatase 201 U/L (38-126); Blood Urea Nitrogen 49 mg/dl (7-17); Carbon Dioxide 23 mmol/L (22-30); Chloride 99 mmol/L (98-107); Estimated Creatinine Clearance 14 ml/min; Glucose 107 mg/dl (70-99); Potassium 5.5 mmol/L (3.5-5.1); Sodium 131 mmol/L (135-145); Total Bilirubin 0.9 mg/dl (0.2-1.3); Total Protein 4.9 g/dl (6.3-8.2); eGFR 16.45
--- NOTE | 2024-01-13 15:20 | WOUNDNOTE ---
WON RN note: Patient admitted with metabolic acidosis, failure to thrive.
See H&P for complete history. Lives by self, mario Gomez lives nearby.
PMH: A fib, CHF, neuropathy, pacer, interstitial cystitis, anemia, anxiety, CKD, pacer, pancreatic insufficiency. R leg fracture, DTI on posterior lower leg and stage 3 PI on R heel.
Wound Location and type/assessment: Patient known to service, last seen 12/19/23 for R posterior calf DTI, R heel stage 3 pressure injury. Both ulcers were caused by brace worn post leg fracture several months ago. With assistance from PCT turned
patient to sides, patient too weak to assist. Today patient with healing ulcers to R leg/heel, improved since last seen. Now has Sacral/buttocks/madalyn rectal area DTI, dark maroon mixed with non blanchable red. Moseley in use and patient said she is
continent of stool most of the time but sometimes not. Patient confirmed she has not been eating well lately and sitting all the time in chair at home. L lateral heel with blood blister suspect DTI. L 5th toe nail lifted up, no drainage. Patient
does not recall how she got this. Mario Gomez at bedside reports his mom has become progressively worse after leg fracture happened.
Appetite: Poor. Only eats what people bring her, can't make food for herself she states.
Pressure redistribution devices in place: Called [employer], spoke to Gibson from housekeeping, asked for an air mattress. Called [facility] for offloading heel boots. Nurse aware and will apply boots when received. Also recommend If no air mattress found, then
air overlay until can obtain one. Strict turning schedule.
Plan: Mineral oil to dry skin on legs and feet daily. Honey gel dressing for R posterior leg and heel. Local wound care to L lateral heel, offloading heel boots for both legs. Barrier cream to sacrum and madalyn rectal area. Despite preventative
measures wound on sacrum may become worse and develop other PI's, due to co morbidities. Mario Gomez made aware of the above and states he understands. Will confirm orders with hospitalist, update care plan and made nurse aware of wound care. Called [facility]
for honey gel and asked nurse to add to supplies already in rm.
Case Management: Recommend air mattress and offloading cushion at SNF.
Follow up at Wound care center upon discharge.
[2024-01-13] MEDS: ROCEPHIN 1000 MG IV (16:06)
--- NOTE | 2024-01-13 16:14 | HPS.HSE ---
Family Physician
-
Family Physician: * NONE
Chief Complaint
-
weakness
History of Present Illness
88 y/o F hx of PAF, CHF, GERD, CKD, HLD, hx of PPM presents to ER from rehab with change in mental status, poor appetite/dehydration and increasing weakness. Patient somnolent in room, history provided by Son. Patient recently admitted [place]
[facility] last month for R heel infection which she completed antibiotics. Per Son, she was in [place] and progressing well until it was noticed she began rquiring two person assist with worsening weakness. No reports of focal weakness. Patient
later became confused prompting ER visit after further decline over past 2 days.
Medical History
Past Medical History
Past Medical History: Reports Other (PAF, CHF, GERD, CKD, HLD, hx of PPM)
Past Surgical History: Reports Other (Appendectomy, Cardiac (Pacemaker), Cholecystectomy, Orthopedic and Tonsilectomy)
Social History
Unable to obtain full social history at this time due to: Acuity
Tobacco: Non-smoker
Alcohol: None
Drug: None
Living: Assisted Living
Employment: Retired
Family History
Family History: Not pertinent
Allergies / Home Medications
Allergies reflects when Allergies were last updated in [employer].
Home Medications with original date entered in [employer]
Allergy/Medication List:
Allergies
Allergy/AdvReac Type Severity Reaction Status Date / Time
aspirin [From Percodan] Allergy Nausea / Verified 12/16/23 12:40
Vomiting
erythromycin base Allergy Vomiting Verified 12/16/23 12:40
oxycodone [From Percodan] Allergy Vomiting Verified 12/16/23 12:40
phenobarbital Allergy Rash Verified 12/16/23 12:40
Sulfa (Sulfonamide Allergy Swelling Verified 12/16/23 12:40
Antibiotics)
zolpidem [From Ambien] Allergy Unknown Verified 12/16/23 12:40
Home Medications
Lactobacillus rhamnosus GG 10 billion cell capsule (Culturelle) 1 cap PO DAILY 12/13/22
amiodarone 200 mg tablet 200 mg PO BID@0900,1700 12/13/22
apixaban 2.5 mg tablet (Eliquis) 2.5 mg BID 12/13/22
calcitriol 0.5 mcg capsule 0.5 mcg DAILY 12/13/22
estradiol 0.01% (0.1 mg/gram) vaginal cream 1 g vaginal DAILYPRN PRN estrogen supplement 12/13/22
skmdgc-shhgolya-lscjbym 6,000-19,000-30,000 unit capsule,delayed rel (Creon) 6,000 cap PO TID@0900,1300,1700 12/13/22
trazodone 50 mg tablet 50 mg PO HS 12/13/22
acetaminophen 500 mg tablet (Tylenol Extra Strength) 1,000 mg PO Q6HPRN PRN mild pain 12/17/23
amitriptyline 10 mg tablet 20 mg PO HS 12/17/23
melatonin 5 mg tablet 5 mg PO HS 12/17/23
omeprazole 20 mg capsule,delayed release 20 mg PO DAILY 12/17/23
potassium chloride 20 mEq tablet,extended release 20 meq PO DAILY 12/17/23
topiramate 50 mg tablet 50 mg PO DAILY 12/17/23
vibegron 75 mg tablet (Gemtesa) 75 mg PO DAILY 12/17/23
acetaminophen 325 mg tablet 650 mg PO Q4HPRN PRN fever >100 01/13/24
docusate sodium 100 mg capsule 100 mg PO BID@0900,1700 01/13/24
ferrous sulfate 325 mg (65 mg iron) tablet 325 mg PO DAILY 01/13/24
lidocaine 5 % topical patch 1 patch topical DAILY right thigh 01/13/24
magnesium hydroxide 400 mg/5 mL oral suspension (Milk of Magnesia) 30 ml PO Q98H PRN day 4 no bm 01/13/24
mirtazapine 15 mg tablet 7.5 mg PO HS 01/13/24
sodium phosphates 19 gram-7 gram/118 mL enema (Enema) 118 ml MS DAILYPRN PRN day 6 no bm 01/13/24
torsemide 20 mg tablet 20 mg PO DAILY 01/13/24
tramadol 50 mg tablet 25 mg PO BID@0900,1700 01/13/24
Review of Systems
-
Unable to obtain full review of systems at this time due to: Acuity
Physical Exam
Vital Signs
Vital Signs
Temp Pulse Resp BP Pulse Ox
97.9 F 66 25 99/63 96
01/13/24 13:47 01/13/24 13:53 01/13/24 13:53 01/13/24 13:47 01/13/24 13:47
Physical Exam
General: No Apparent Distress and Appears Chronically Ill
HEENT: NormoCephalic and Anicteric
Respiratory: Clear; No Wheezes or Rales
Cardiac: S1/S2, Regular Rhythm and Other (paced)
GI: Non Distended
Genito-urinary: Moseley
Skin: Other (R heel ulcer also Sacral/buttocks/madalyn-rectal area DTI)
Neuro: Awake and Alert
Psych: Calm and Confused
Laboratory Results
-
01/13/24 14:36
01/13/24 14:36
Laboratory Results
Lactic Acid 1.8 mmol/L (0.7-2.0) 01/13/24 14:36
Total Bilirubin 0.9 mg/dl (0.2-1.3) 01/13/24 14:36
AST 171 U/L (14-36) H 01/13/24 14:36
ALT 172 U/L (0-35) H 01/13/24 14:36
Alkaline Phosphatase 201 U/L (38-126) H 01/13/24 14:36
Data Reviewed
-
Lab Data: Labs Reviewed by me
Impression/Plan
-
Assessment:
Urinary tract infection with associated TME
- start empiric Rocephin, day 1
- follow cultures
- Moseley placed for diversion of urine from excoriated skin, sacral wound
VLADISLAV on CKD stage 3b
Hyperkalemia
Hyponatremia
- IVF
- Lokelma if able to swallow, will trial
- BMP 9 PM repeat
Chronic Wounds POA
- R posterior calf DTI
- R heel stage 3 pressure injury
- Sacral/buttocks/madalyn rectal area DTI. dark maroon mixed with non blanchable red
- L lateral heel with blood blister suspect DTI.
- L 5th toe nail lifted up, no drainage
- follow wound care recs
Recent Sepsis due to R heel cellulitis - completed Abx
Hx of Afib with RVR
Tachybradycardia syndrome status post pacemaker placement
- continue Amiodarone/Eliquis
- was on Metoprolol XL 25mg from last admit, will consider resumption if BP allows
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
- continue Eliquis
Chronic HFpEF
- holding diuretics for CHF, monitor I/Os, weights
Peripheral neuropathy
- hold pain meds while with TME
Pancreatic insufficiency
- hold pancreatic replacement medications while NPO
Essential Hypertension
- hold Torsemide/BB
History of C. difficile (remote)
- at risk of recurrence but monitor
GERD - IV PPI
DVT ppx: SC Heparin
Code: Full
[2024-01-13 16:30] LABS: NT-proBNP 5660 pg/ml
[2024-01-13 18:10] VITALS: BP 128/58
--- NOTE | 2024-01-13 18:15 | TRANSFER ---
Received pt from ED via air bed. AAO x 2-3. Forgetful. SENECA-CAYUGA. VSS. potline monitor placed. Will continue to monitor.
[2024-01-13 18:18] VITALS: BMI 27.9
[2024-01-13] MEDS: NSS 1000 IV (18:20)
[2024-01-13] MEDS: PACERONE 200 MG PO (18:22)
[2024-01-13 18:26] VITALS: BMI 27.9
[2024-01-13 19:33] VITALS: BP 112/54
[2024-01-13 20:51] LABS: Blood Urea Nitrogen 49 mg/dl (7-17); Calcium 8.8 mg/dl (8.4-10.2); Carbon Dioxide 22 mmol/L (22-30); Chloride 101 mmol/L (98-107); Estimated Creatinine Clearance 14 ml/min; Glucose 90 mg/dl (70-99); Potassium 5.5 mmol/L (3.5-5.1); Sodium 132 mmol/L (135-145); eGFR 18.05
[2024-01-13] MEDS: ELIQUIS 2.5 MG PO (20:57)
[2024-01-13 23:09] VITALS: BP 100/48
[2024-01-14] VITALS (7 sets, daily range): BP systolic 96–132; BP diastolic 39–98; BMI 28.8
[2024-01-14] MEDS: NSS 1000 IV (06:41)
[2024-01-14 07:16] LABS: % Basophils 0.2 % (0-2); % Eosinophils 0.7 % (0-6); % Immature Granulocytes 0.5 % (0-0.5); % Monocytes 15.6 % (1.7-9.3); Absolute Eosinophils 0.1 10^3/uL (0-0.7); Absolute Immature Granulocytes 0.1 10^3/uL (0-0.05); Absolute Lymphocytes 2.2 10^3/uL (1.2-3.4); Absolute Neutrophils 8.5 10^3/uL (1.4-6.5); Hematocrit 37.3 % (37.0-47.0); Mean Corp Hgb Conc. 32.2 g/dL (33.0-37.0); Mean Corpuscular Hgb 33.7 pg (27.0-31.0); Mean Corpuscular Volume 104.8 fL (81.0-99.0); Mean Platelet Volume 11.4 fL (7.4-10.4); Nucleated Red Blood Cells % 0 %; Platelet Count 154 10^3/uL (130-400); Red Blood Cell Count 3.56 10^6/uL (4.20-5.40); Red Cell Dist. Width 14.5 % (11.5-14.5); White Blood Cell Count 12.8 10^3/uL (4.8-10.8)
[2024-01-14 07:36] LABS: ALT (SGPT) 139 U/L (0-35); AST (SGOT) 125 U/L (14-36); Albumin 2.2 g/dl (3.5-5.0); Alkaline Phosphatase 159 U/L (38-126); Blood Urea Nitrogen 48 mg/dl (7-17); Calcium 8.7 mg/dl (8.4-10.2); Carbon Dioxide 20 mmol/L (22-30); Chloride 105 mmol/L (98-107); Estimated Creatinine Clearance 16 ml/min; Glucose 75 mg/dl (70-99); Potassium 5.6 mmol/L (3.5-5.1); Sodium 134 mmol/L (135-145); Total Bilirubin 0.9 mg/dl (0.2-1.3); Total Protein 4.4 g/dl (6.3-8.2); eGFR 19.94
[2024-01-14] MEDS: NOVOLIN R 0.05 UNITS IV (08:36)
[2024-01-14] MEDS: PACERONE 200 MG PO ×2 (08:37→17:05)
[2024-01-14] MEDS: ELIQUIS 2.5 MG PO ×2 (08:37→20:39)
[2024-01-14] MEDS: PROTONIX IV 40 MG IV (08:39)
[2024-01-14] MEDS: NSS (PRESERVATIVE FREE) 10 ML IV (08:39)
[2024-01-14 08:42] LABS: Glucose - Point of Care 76 mg/dl (70-99)
[2024-01-14] MEDS: DEXTROSE 50% SYRINGE 25 GRAMS IV (08:47)
[2024-01-14 09:16] LABS: Glucose - Point of Care 151 mg/dl (70-99)
[2024-01-14] MEDS: HYDROPHOR 1 APPLIC TOPICAL (09:17)
[2024-01-14 09:51] LABS: Glucose - Point of Care 126 mg/dl (70-99)
--- NOTE | 2024-01-14 10:26 | W.PN.HOSP.TC ---
Today's Communication/Plan
-
s/p insulin/dextrose
repeat 3pm BMP and consider Lokelma
ST before diet
continue IV abx
resume pain meds
diuretics resumption in 24-48 hours if Cr improves further
continue IV abx and wound care
Assessment / Plan
Assessment / Plan
Assessment:
Urinary tract infection with associated TME
- continue empiric Rocephin, day 2
- follow cultures
- Moseley placed for diversion of urine from excoriated skin, sacral wound
VLADISLAV on CKD stage 3b
Hyperkalemia
Hyponatremia
- cap IVF
- s/p dextrose/insulin
- repeat BMP 3pm
- Lokelma prn
Chronic Wounds POA
- R posterior calf DTI
- R heel stage 3 pressure injury
- Sacral/buttocks/madalyn rectal area DTI. dark maroon mixed with non blanchable red
- L lateral heel with blood blister suspect DTI.
- L 5th toe nail lifted up, no drainage
- follow wound care recs
Recent Sepsis due to R heel cellulitis - completed Abx
Hx of Afib with RVR
Tachybradycardia syndrome status post pacemaker placement
- continue Amiodarone/Eliquis
- was on Metoprolol XL 25mg from last admit but not on admission med list, will consider resumption if BP allows
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
- continue Eliquis
Chronic HFpEF
- hold Torsemide; consider resumption in 24-48 hours if Cr continues to improve
- monitor I/Os, weights
Peripheral neuropathy
- more alert, resume Tramadol
Pancreatic insufficiency
- resume pancreatic replacement medications
Essential Hypertension
- hold Torsemide; consider resumption in 24-48 hours if Cr continues to improve
- hold BB as above
History of C. difficile (remote)
- at risk of recurrence but monitor
GERD - continue PPI
DVT ppx: SC Heparin
Code: Full
Anticipated Discharge: > 48 hours
Subjective/Interval History
-
Date of Service: January 14, 2024
more alert today
reports some sacral pain
also reports being hungry
Objective Data
-
Labs:
Laboratory Results
01/14/24
06:53
WBC 12.8 H
Hgb 12.0
Hct 37.3
Plt Count 154
Sodium 134 L
Potassium 5.6 H
Chloride 105
Carbon Dioxide 20 L
BUN 48 H
Creatinine 2.3 H
Glucose 75
Calcium 8.7
Total Bilirubin 0.9
AST 125 H
ALT 139 H
Alkaline Phosphatase 159 H
Vital Signs:
Vital Signs
Temp Pulse Resp BP Pulse Ox
98.9 F 62 16 100/73 96
01/14/24 07:00 01/14/24 07:00 01/14/24 07:00 01/14/24 07:00 01/14/24 07:00
I&O
01/13/24 01/14/24 01/15/24
06:59 06:59 06:59
Intake Total 860 / 860
Output Total 250 / 250
Balance 610 / 610
Physical Exam
-
General: No Apparent Distress and Appears Chronically Ill
HEENT: Normocephalic and Atraumatic
Respiratory: Negative Wheezes
Cardiac: Regular Rhythm and S1/S2
GI: Soft
Genito-urinary: No Costovertebral Tender
Skin: Other (R heel ulcer also Sacral/buttocks/madalyn-rectal area DTI)
Neuro: AO x 3
Hematologic / Lymphatic: No Lymphadenopathy
Psych: Calm
Data Reviewed
-
Total Time Spent with Patient (in minutes): 45
Labs: Labs Reviewed by me
[2024-01-14 11:01] LABS: Glucose - Point of Care 114 mg/dl (70-99)
[2024-01-14] MEDS: ROCEPHIN 1000 MG IV (12:03)
[2024-01-14] MEDS: STERILE WATER FOR INJECTION 10 ML IV (12:03)
[2024-01-14] MEDS: ZENPEP DELAYED RELEASE CAPSULE 1 CAPSULE PO ×2 (12:26→17:22)
--- NOTE | 2024-01-14 12:50 | CM ---
Met with son Jason(Jason [phone])
IA competed.
Lives at [facility] 1 floor/ apartment on 3rd floor, elevator.
She was disharged to [facility] 12/23/23. son reports she went back to [facility] with [facility] care ordered to do wound assessment. [facility] then recommended PT and OT but it did not start for 4 days.
Patient became weaker and is now readmitted to .
Patient DME: rollator , walker, shower chair, grab bars,transportation wheelchair
Current with [facility]
SPoke to PT after eval and PT spoke to family who agree with referral for short term rehab back at [facility].
Referral sent in allscripts.
PCP: Radha Lovett
Pharmacy: [address], [place] (Acute meds), [facility] through [facility] mail-in (chronic meds)
PLAN: snf
--- NOTE | 2024-01-14 15:49 | PTOTSP ---
SPEECH THERAPY SWALLOW EVALUATION:
Patient exhibits clinical signs of oropharyngeal dysphagia, likely chronic related to generalized weakness/deconditioning in the setting of advanced age, and acutely exacerbated by UTI/TME. Patient remains at risk for aspiration and related
complications due to limited mobility. Patient currently with clear CXR at this time. Breathing comfortably on room air. Alert and oriented x4. Recommend continue current Regular texture diet, thin liquids. Medications whole in puree. Aspiration and
Reflux precautions: Upright positioning; Remain upright 30 minutes after eating/drinking; Select soft/moist items, avoid hard/dry items; Small single sips/bites; Slow rate of intake; Partial assistance and supervision during meals; Monitor for signs
of aspiration. Oral care 3x/day. ST to follow, assess diet tolerance and modify as appropriate, determine indication for instrumental assessment of swallowing as appropriate, and provide continued education regarding aspiration risks and precautions.
RECOMMEND:
1) Regular texture diet, thin liquids
2) Medications whole in puree
3) Aspiration and Reflux precautions: Upright positioning; Remain upright 30 minutes after eating/drinking; Select soft/moist items, avoid hard/dry items; Small single sips/bites; Slow rate of intake; Partial assistance and supervision during meals;
Monitor for signs of aspiration
4) Oral care 3x/day
5) ST to follow
[2024-01-14] MEDS: ULTRAM 25 MG PO (17:09)
[2024-01-14 17:27] LABS: Blood Urea Nitrogen 46 mg/dl (7-17); Calcium 8.7 mg/dl (8.4-10.2); Carbon Dioxide 23 mmol/L (22-30); Chloride 105 mmol/L (98-107); Estimated Creatinine Clearance 16 ml/min; Glucose 80 mg/dl (70-99); Potassium 5.3 mmol/L (3.5-5.1); Sodium 135 mmol/L (135-145); eGFR 21.04
[2024-01-14] MEDS: TYLENOL 650 MG PO (20:39)
[2024-01-14] MEDS: DESYREL 50 MG PO (20:41)
[2024-01-14] MEDS: MELATONIN 5 MG PO (20:41)
[2024-01-14 21:40] LABS: Glucose - Point of Care 108 mg/dl (70-99)
[2024-01-15 03:00] VITALS: BP 100/47
[2024-01-15 06:00] VITALS: BMI 28.3
[2024-01-15 06:23] LABS: % Basophils 0.1 % (0-2); % Eosinophils 2.4 % (0-6); % Immature Granulocytes 0.8 % (0-0.5); % Lymphocytes 19.5 % (20.5-51.1); % Monocytes 14.8 % (1.7-9.3); % Neutrophils 62.4 % (42.2-75.2); Absolute Eosinophils 0.2 10^3/uL (0-0.7); Absolute Immature Granulocytes 0.1 10^3/uL (0-0.05); Absolute Lymphocytes 1.6 10^3/uL (1.2-3.4); Absolute Monocytes 1.2 10^3/uL (0.1-0.6); Hematocrit 33.6 % (37.0-47.0); Hemoglobin 10.7 g/dL (12.0-16.0); Mean Corp Hgb Conc. 31.8 g/dL (33.0-37.0); Mean Corpuscular Hgb 32.7 pg (27.0-31.0); Mean Corpuscular Volume 102.8 fL (81.0-99.0); Nucleated Red Blood Cells % 0 %; Platelet Count 145 10^3/uL (130-400); Red Blood Cell Count 3.27 10^6/uL (4.20-5.40); Red Cell Dist. Width 14.6 % (11.5-14.5); White Blood Cell Count 7.9 10^3/uL (4.8-10.8)
[2024-01-15 06:48] LABS: ALT (SGPT) 103 U/L (0-35); AST (SGOT) 77 U/L (14-36); Albumin 1.9 g/dl (3.5-5.0); Alkaline Phosphatase 125 U/L (38-126); Blood Urea Nitrogen 45 mg/dl (7-17); Calcium 8.6 mg/dl (8.4-10.2); Carbon Dioxide 18 mmol/L (22-30); Chloride 109 mmol/L (98-107); Estimated Creatinine Clearance 20 ml/min; Glucose 77 mg/dl (70-99); Potassium 4.5 mmol/L (3.5-5.1); Sodium 135 mmol/L (135-145); Total Bilirubin 0.7 mg/dl (0.2-1.3); eGFR 26.77
[2024-01-15 07:00] VITALS: BP 103/39
[2024-01-15 07:26] LABS: Glucose - Point of Care 92 mg/dl (70-99)
[2024-01-15] MEDS: ELIQUIS 2.5 MG PO ×2 (08:28→22:32)
[2024-01-15] MEDS: HYDROPHOR 1 APPLIC TOPICAL (08:28)
[2024-01-15] MEDS: PROTONIX 40 MG PO (08:28)
--- NOTE | 2024-01-15 09:17 | W.PN.HOSP.TC ---
Today's Communication/Plan
-
see note
Assessment / Plan
Assessment / Plan
Urinary tract infection with associated TME
Acute urinary retention
- Urine culture growing Ecoli/pseudomonas
- on Rocephin, change it to cefepime pending pseudomonal susceptibilities
- Moseley placed for diversion of urine from excoriated skin, sacral wound
VLADISLAV on CKD stage 3b
Hyperkalemia -resolved
Hyponatremia - resolved
- cap IVF
- s/p dextrose/insulin
- Lokelma prn
- Cr trending down and 1.8 today, baseline of 1.2
Chronic Wounds POA
- R posterior calf DTI
- R heel stage 3 pressure injury
- Sacral/buttocks/madalyn rectal area DTI. dark maroon mixed with non blanchable red
- L lateral heel with blood blister suspect DTI.
- L 5th toe nail lifted up, no drainage
- follow wound care recs
Recent Sepsis due to R heel cellulitis - completed Abx
Hx of Afib with RVR
Tachybradycardia syndrome status post pacemaker placement
- continue Amiodarone/Eliquis
- was on Metoprolol XL 25mg from last admit but not on admission med list, will consider resumption if BP allows
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
- continue Eliquis
Chronic HFpEF
- Continue holding torsemide for now , no signs of exacerbation and weight 70kg, much less than what it usually has been in past.
- monitor I/Os, weights
Peripheral neuropathy
- more alert, resume Tramadol
Pancreatic insufficiency
- resume pancreatic replacement medications
Essential Hypertension
- Hold BP medication as BP remains soft
History of C. difficile (remote)
- at risk of recurrence but monitor
- add probiotic while on abx
GERD - continue PPI
DVT ppx: SC Heparin
Code: Full
Anticipated Discharge: 24 - 48 hours
Subjective/Interval History
-
Date of Service: January 15, 2024
resting comfortably in bed
Moseley catheter in, draining clear urine
afebrile
no episode of agitation/behavioral issues overnight
Objective Data
-
Labs:
Laboratory Results
01/15/24
06:00
WBC 7.9
Hgb 10.7 L
Hct 33.6 L
Plt Count 145
Sodium 135
Potassium 4.5
Chloride 109 H
Carbon Dioxide 18 L
BUN 45 H
Creatinine 1.8 H
Glucose 77
Calcium 8.6
Total Bilirubin 0.7
AST 77 H
ALT 103 H
Alkaline Phosphatase 125
Vital Signs:
Vital Signs
Temp Pulse Resp BP Pulse Ox
98.8 F 61 12 103/39 95
01/15/24 07:00 01/15/24 07:00 01/15/24 07:00 01/15/24 07:00 01/15/24 07:00
I&O
01/14/24 01/15/24 01/16/24
06:59 06:59 06:59
Intake Total 860 / 860 360 / 360 480 / 480
Output Total 250 / 250 200 / 200 400 / 400
Balance 610 / 610 160 / 160 80 / 80
Review of Systems
-
Respiratory: Reports No Symptoms
Cardiac: Reports No Symptoms
Abdomen/GI: Reports No Symptoms
Physical Exam
-
General: No Apparent Distress and Comfortable
HEENT: Negative Oxygen
Respiratory: Clear to Auscultation
Cardiac: Regular Rhythm and S1/S2; Negative Murmur or Rub
GI: Soft, Nontender and Nondistended
Genito-urinary: Moseley (Dark yellow urine)
Musculoskeletal: No Edema
Skin: Decubitus Ulcers (DTI on sacrum. left heel stage III ulcer - dressed )
Neuro: Awake, Alert and Oriented
Psych: Calm
[2024-01-15] MEDS: ULTRAM 25 MG PO ×2 (09:21→16:45)
[2024-01-15] MEDS: PACERONE 200 MG PO ×2 (09:22→16:45)
[2024-01-15] MEDS: ZENPEP DELAYED RELEASE CAPSULE 1 CAPSULE PO ×3 (09:30→18:04)
[2024-01-15] MEDS: VISBIOME 2 CAP PO (10:47)
[2024-01-15] MEDS: MAXIPIME 2000 MG IV (10:49)
[2024-01-15] MEDS: STERILE WATER FOR INJECTION 10 ML IV (10:49)
[2024-01-15 11:00] VITALS: BP 99/51
[2024-01-15 11:23] LABS: Glucose - Point of Care 172 mg/dl (70-99)
[2024-01-15 14:40] VITALS: BP 118/40
[2024-01-15 19:15] VITALS: BP 107/44
[2024-01-15] MEDS: MELATONIN 5 MG PO (22:32)
[2024-01-15] MEDS: DESYREL 50 MG PO (22:32)
[2024-01-15 23:00] VITALS: BP 100/57
[2024-01-16] VITALS (8 sets, daily range): BP systolic 88–111; BP diastolic 56–67; PULSE 124–140; BMI 28.4
[2024-01-16 07:38] LABS: % Basophils 0.5 % (0-2); % Eosinophils 3.3 % (0-6); % Immature Granulocytes 0.7 % (0-0.5); % Lymphocytes 17.9 % (20.5-51.1); % Monocytes 15.1 % (1.7-9.3); % Neutrophils 62.5 % (42.2-75.2); Absolute Eosinophils 0.2 10^3/uL (0-0.7); Absolute Lymphocytes 1.1 10^3/uL (1.2-3.4); Absolute Monocytes 0.9 10^3/uL (0.1-0.6); Absolute Neutrophils 3.8 10^3/uL (1.4-6.5); Hematocrit 34.8 % (37.0-47.0); Hemoglobin 11.2 g/dL (12.0-16.0); Mean Corp Hgb Conc. 32.2 g/dL (33.0-37.0); Mean Corpuscular Hgb 33.4 pg (27.0-31.0); Mean Corpuscular Volume 103.9 fL (81.0-99.0); Mean Platelet Volume 11.3 fL (7.4-10.4); Nucleated Red Blood Cells % 0 %; Platelet Count 160 10^3/uL (130-400); Red Blood Cell Count 3.35 10^6/uL (4.20-5.40); Red Cell Dist. Width 14.7 % (11.5-14.5)
[2024-01-16] MEDS: ULTRAM 25 MG PO ×2 (08:18→17:29)
[2024-01-16] MEDS: PROTONIX 40 MG PO (08:19)
[2024-01-16] MEDS: ELIQUIS 2.5 MG PO ×2 (08:19→19:57)
[2024-01-16] MEDS: VISBIOME 2 CAP PO (08:20)
[2024-01-16] MEDS: HYDROPHOR 1 APPLIC TOPICAL (08:21)
[2024-01-16] MEDS: MAXIPIME 1000 MG IV (08:22)
[2024-01-16] MEDS: STERILE WATER FOR INJECTION 10 ML IV (08:22)
[2024-01-16 08:27] LABS: ALT (SGPT) 80 U/L (0-35); AST (SGOT) 49 U/L (14-36); Albumin 1.9 g/dl (3.5-5.0); Alkaline Phosphatase 116 U/L (38-126); Blood Urea Nitrogen 29 mg/dl (7-17); Calcium 8.2 mg/dl (8.4-10.2); Carbon Dioxide 21 mmol/L (22-30); Chloride 110 mmol/L (98-107); Estimated Creatinine Clearance 27 ml/min; Glucose 76 mg/dl (70-99); Potassium 3.7 mmol/L (3.5-5.1); Sodium 138 mmol/L (135-145); Total Bilirubin 0.5 mg/dl (0.2-1.3); Total Protein 3.9 g/dl (6.3-8.2); eGFR 39.55
--- NOTE | 2024-01-16 10:03 | CM ---
Addendum entered by REHAN Rendon 01/16/24 12:43:
NPI Dr. Leyva [id number]
NPI For [facility] [id number]
For when patient is medically cleared for discharged.
Original Note:
Received call from Sara in admissions at [facility] who confirmed that she would be able to offer a bed for patient. Will send updates to [facility]. Will update family about bed. Patient will need authorization prior to transferring to SNF.
Plan: Case management will continue to follow and assist with discharge planning. SNF at [facility] when stable.
[2024-01-16] MEDS: ZENPEP DELAYED RELEASE CAPSULE 1 CAPSULE PO ×3 (10:05→17:59)
[2024-01-16] MEDS: PACERONE 200 MG PO ×2 (10:05→17:30)
--- NOTE | 2024-01-16 10:25 | W.PN.HOSP.TC ---
Addendum entered and electronically signed by Rome Llamas MD 01/16/24 14:28:
Discharge medication from 12/20 reviewed, patient was supposed to be on Toprol-XL 25 mg twice daily
Will resume patient on Lopressor 12-1/2 mg twice daily with holding parameter
Original Note:
Today's Communication/Plan
-
see note
Assessment / Plan
Assessment / Plan
Urinary tract infection with associated TME
Acute urinary retention
- Urine culture growing Ecoli/pseudomonas
- Susceptibility reviewed, maintain on cefepime
- Moseley placed for diversion of urine from excoriated skin, sacral wound
VLADISLAV on CKD stage 3b
Hyperkalemia -resolved
Hyponatremia - resolved
- cap IVF
- s/p dextrose/insulin
- Lokelma prn
- Creatinine has trended down to 1.3. close to normal
Chronic Wounds POA
- R posterior calf DTI
- R heel stage 3 pressure injury
- Sacral/buttocks/madalyn rectal area DTI. dark maroon mixed with non blanchable red
- L lateral heel with blood blister suspect DTI.
- L 5th toe nail lifted up, no drainage
- follow wound care recs
Hypotension
-Patient systolic blood pressure in 80s in the morning, amiodarone dose provided after blood pressure improved
Hx of Afib with RVR
Tachybradycardia syndrome status post pacemaker placement
- continue Amiodarone/Eliquis
- was on Metoprolol XL 25mg from last admit but not on admission med list, will consider resumption if BP allows
- Patient tachycardic with EKG showing A-fib. will consult cardiology evaluation if not improved.
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
- continue Eliquis
Chronic HFpEF
-Resume torsemide from tomorrow morning
- monitor I/Os, weights
Peripheral neuropathy
- more alert, resume Tramadol
Pancreatic insufficiency
- resume pancreatic replacement medications
Essential Hypertension
- Hold BP medication as BP remains soft
History of C. difficile (remote)
- at risk of recurrence but monitor
- add probiotic while on abx
Recent Sepsis due to R heel cellulitis - completed Abx
GERD - continue PPI
DVT ppx: SC Heparin
Code: Full
Total time spent : 53 mins g
Anticipated Discharge: 24 - 48 hours
Subjective/Interval History
-
Date of Service: January 16, 2024
Patient hypotensive in the morning, no dizziness reported
Moseley catheter in place
Denies lower abdominal discomfort/abdominal pain
Objective Data
-
Labs:
Laboratory Results
01/16/24
05:57
WBC 6.0
Hgb 11.2 L
Hct 34.8 L
Plt Count 160
Sodium 138
Potassium 3.7
Chloride 110 H
Carbon Dioxide 21 L
BUN 29 H
Creatinine 1.3 H
Glucose 76
Calcium 8.2 L
Total Bilirubin 0.5
AST 49 H
ALT 80 H
Alkaline Phosphatase 116
Vital Signs:
Vital Signs
Temp Pulse Resp BP Pulse Ox
98.1 F 125 21 98/56 94
01/16/24 08:04 01/16/24 10:05 01/16/24 08:04 01/16/24 10:05 01/16/24 08:04
I&O
01/15/24 01/16/24 01/17/24
06:59 06:59 06:59
Intake Total 360 / 360 820 / 820
Output Total 200 / 200 1400 / 1400
Balance 160 / 160 -580 / -580
Review of Systems
-
Respiratory: Reports No Symptoms
Cardiac: Reports No Symptoms
Abdomen/GI: Denies Abdominal Pain
Physical Exam
-
General: Comfortable
HEENT: Negative Oxygen
Respiratory: Clear to Auscultation
Cardiac: Regular Rhythm and S1/S2; Negative Murmur or Rub
GI: Soft, Nontender and Nondistended
Genito-urinary: Moseley (Dark yellow urine)
Musculoskeletal: No Edema
Skin: Decubitus Ulcers (DTI on sacrum. left heel stage III ulcer - dressed )
Neuro: Awake, Alert and Oriented
Psych: Calm
[2024-01-16] MEDS: TYLENOL 650 MG PO (11:15)
--- NOTE | 2024-01-16 14:15 | PTOTSP ---
Speech Language Pathology
Pt seen for dysphagia tx. Sitting upright in bed upon arrival. She denied any difficulty with P.O. intake. RN confirmed this. CXR clear on admission, and WBC WNL. Seen with regular solids and thin liquids. Adequate mastication, bolus
formation, and A-P transit noted with no oral residue. No overt signs of aspiration.
Recommend:
(1) Regular solids/thin liquids
(2) General aspiration precautions
(3) Meds as tolerated
(4) [employer] to sign off. Please reconsult as indicated
[2024-01-16] MEDS: LOPRESSOR 12.5 MG PO (19:57)
[2024-01-16] MEDS: DESYREL 50 MG PO (21:08)
[2024-01-16] MEDS: MELATONIN 5 MG PO (21:08)
[2024-01-17] VITALS (7 sets, daily range): BP systolic 92–118; BP diastolic 60–86; PULSE 112; O2SAT 97; BMI 28.0
[2024-01-17 07:02] LABS: % Basophils 0.5 % (0-2); % Eosinophils 3.6 % (0-6); % Immature Granulocytes 0.7 % (0-0.5); % Monocytes 16.4 % (1.7-9.3); % Neutrophils 62.8 % (42.2-75.2); Absolute Eosinophils 0.2 10^3/uL (0-0.7); Absolute Lymphocytes 0.9 10^3/uL (1.2-3.4); Absolute Monocytes 0.9 10^3/uL (0.1-0.6); Absolute Neutrophils 3.5 10^3/uL (1.4-6.5); Hematocrit 36.6 % (37.0-47.0); Mean Corp Hgb Conc. 32.8 g/dL (33.0-37.0); Mean Corpuscular Hgb 34.2 pg (27.0-31.0); Mean Corpuscular Volume 104.3 fL (81.0-99.0); Mean Platelet Volume 10.6 fL (7.4-10.4); Nucleated Red Blood Cells % 0 %; Platelet Count 167 10^3/uL (130-400); Red Blood Cell Count 3.51 10^6/uL (4.20-5.40); Red Cell Dist. Width 14.8 % (11.5-14.5); White Blood Cell Count 5.6 10^3/uL (4.8-10.8)
[2024-01-17 07:34] LABS: ALT (SGPT) 63 U/L (0-35); AST (SGOT) 44 U/L (14-36); Albumin 1.9 g/dl (3.5-5.0); Alkaline Phosphatase 101 U/L (38-126); Blood Urea Nitrogen 23 mg/dl (7-17); Calcium 8.5 mg/dl (8.4-10.2); Carbon Dioxide 20 mmol/L (22-30); Chloride 111 mmol/L (98-107); Estimated Creatinine Clearance 36 ml/min; Glucose 104 mg/dl (70-99); Potassium 3.9 mmol/L (3.5-5.1); Sodium 137 mmol/L (135-145); Total Bilirubin 0.6 mg/dl (0.2-1.3); Total Protein 4.1 g/dl (6.3-8.2); eGFR 54.19
[2024-01-17] MEDS: STERILE WATER FOR INJECTION 10 ML IV ×2 (08:20→14:53)
[2024-01-17] MEDS: MAXIPIME 1000 MG IV (08:20)
[2024-01-17] MEDS: PROTONIX 40 MG PO (08:20)
[2024-01-17] MEDS: ELIQUIS 2.5 MG PO ×2 (08:21→19:25)
[2024-01-17] MEDS: VISBIOME 2 CAP PO (08:21)
[2024-01-17] MEDS: LOPRESSOR 12.5 MG PO (08:22)
[2024-01-17] MEDS: HYDROPHOR 1 APPLIC TOPICAL (08:22)
[2024-01-17] MEDS: DEMADEX 20 MG PO (08:23)
[2024-01-17] MEDS: ULTRAM 25 MG PO ×2 (08:35→17:20)
[2024-01-17] MEDS: PACERONE 200 MG PO ×2 (08:35→17:43)
[2024-01-17] MEDS: ZENPEP DELAYED RELEASE CAPSULE 1 CAPSULE PO ×3 (08:37→17:41)
--- NOTE | 2024-01-17 13:17 | W.PN.HOSP.TC ---
Today's Communication/Plan
-
possible d/c tomorrow
Assessment / Plan
Assessment / Plan
Urinary tract infection with associated TME
Acute urinary retention
- Urine culture growing Ecoli/pseudomonas - pansensitive to antibiotics
- Susceptibility reviewed, maintain on cefepime
- Moseley placed for diversion of urine from excoriated skin, sacral wound
-Discussed with primary urology Dr. Coleman who is in agreement to maintain Moseley catheter to help with decubitus wound healing. Patient to f/u in office for Voiding trial
-Cefepime dose increased to 2 mg every 12h based on improved creatinine clearance to
VLADISLAV on CKD stage 3b
Hyperkalemia -resolved
Hyponatremia - resolved
- cap IVF
- s/p dextrose/insulin
- Lokelma prn
- Creatinine down to 1 today.
Chronic Wounds POA
- R posterior calf DTI
- R heel stage 3 pressure injury
- Sacral/buttocks/madalyn rectal area DTI. dark maroon mixed with non blanchable red
- L lateral heel with blood blister suspect DTI.
- L 5th toe nail lifted up, no drainage
- follow wound care recs
Hypotension
-Patient systolic blood pressure in 80s in the morning, amiodarone dose provided after blood pressure improved
Hx of Afib with RVR
Tachybradycardia syndrome status post pacemaker placement
- continue Amiodarone/Eliquis
- was on Metoprolol XL 25mg from last admit but not on admission med list, will consider resumption if BP allows
-Increasing Lopressor dose to 25 mg twice daily. monitor on telemetry
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
- continue Eliquis
Chronic HFpEF
-Resumed back on torsemdie today, monitor weight.
- monitor I/Os, weights
Peripheral neuropathy
- more alert, resume Tramadol
Pancreatic insufficiency
- resume pancreatic replacement medications
Essential Hypertension
-increasing dose of lopressor.
History of C. difficile (remote)
- at risk of recurrence but monitor
- probiotic while on abx
Recent Sepsis due to R heel cellulitis - completed Abx
GERD - continue PPI
DVT ppx: SC Heparin
Code: Full
Discussed with Patient/Son at Bedside
As mentioned above Moseley to remain in
Anticipated Discharge: Within 24 hours
Subjective/Interval History
-
Date of Service: January 17, 2024
Resting comfortably in bed
Denies any chest pain/palpitation
Afebrile
Objective Data
-
Labs:
Laboratory Results
01/17/24
06:45
WBC 5.6
Hgb 12.0
Hct 36.6 L
Plt Count 167
Sodium 137
Potassium 3.9
Chloride 111 H
Carbon Dioxide 20 L
BUN 23 H
Creatinine 1.0
Glucose 104 H
Calcium 8.5
Total Bilirubin 0.6
AST 44 H
ALT 63 H
Alkaline Phosphatase 101
Vital Signs:
Vital Signs
Temp Pulse Resp BP Pulse Ox
97.7 F 112 16 109/63 97
01/17/24 10:59 01/17/24 10:59 01/17/24 10:59 01/17/24 10:59 01/17/24 10:59
I&O
01/16/24 01/17/24 01/18/24
06:59 06:59 06:59
Intake Total 820 / 820 720 / 720
Output Total 1400 / 1400 1100 / 1100
Balance -580 / -580 -380 / -380
Review of Systems
-
Respiratory: Reports No Symptoms
Cardiac: Reports No Symptoms
Abdomen/GI: Reports No Symptoms
Physical Exam
-
General: Comfortable
HEENT: Negative Oxygen
Respiratory: Clear to Auscultation
Cardiac: Regular Rhythm and S1/S2; Negative Murmur or Rub
GI: Soft, Nontender and Nondistended
Genito-urinary: Moseley (Dark yellow urine)
Musculoskeletal: No Edema
Skin: Decubitus Ulcers (DTI on sacrum. left heel stage III ulcer - dressed )
Neuro: Awake, Alert and Oriented
Psych: Calm
[2024-01-17] MEDS: MAXIPIME 2000 MG IV (14:52)
[2024-01-17] MEDS: LOPRESSOR 25 MG PO (19:25)
[2024-01-17] MEDS: MELATONIN 5 MG PO (22:11)
[2024-01-17] MEDS: DESYREL 50 MG PO (22:12)
[2024-01-18] MEDS: MAXIPIME 2000 MG IV ×2 (01:31→13:16)
[2024-01-18] MEDS: STERILE WATER FOR INJECTION 10 ML IV ×2 (01:32→13:16)
[2024-01-18 03:19] VITALS: BP 95/55
[2024-01-18 06:00] VITALS: BMI 28.0
[2024-01-18 07:05] VITALS: BP 105/62
[2024-01-18] MEDS: DEMADEX 20 MG PO (07:44)
[2024-01-18] MEDS: PROTONIX 40 MG PO (07:44)
[2024-01-18] MEDS: ELIQUIS 2.5 MG PO (07:44)
[2024-01-18] MEDS: LOPRESSOR 25 MG PO (07:44)
[2024-01-18] MEDS: VISBIOME 2 CAP PO (07:44)
[2024-01-18] MEDS: HYDROPHOR 1 APPLIC TOPICAL (07:45)
[2024-01-18] MEDS: ULTRAM 25 MG PO ×2 (09:56→16:01)
[2024-01-18] MEDS: PACERONE 200 MG PO ×2 (09:56→16:01)
[2024-01-18] MEDS: ZENPEP DELAYED RELEASE CAPSULE 1 CAPSULE PO ×3 (09:58→16:01)
--- NOTE | 2024-01-18 11:08 | CM ---
Addendum entered by REHAN Rendon 01/18/24 15:57:
Received return call from a field representative named Lisa at [facility] who stated that patient has been approved from 17-01-15 Auth # [id number] NRD 01/19-clinical needs to be faxed to [phone].
Placed a call to [facility] in admissions at [facility] who confirmed ability to accept today. Provided auth information.
Patient will go to 4th floor # For report [phone] and fax# [phone]
Will complete medical necessity and transfer sheet and provide to [employer] community development coordinator.
Will discuss IMM with family.
Addendum entered by REHAN Rendon 01/18/24 11:47:
Request for auth faxed. Received notification from [employer] that patient will need an air mattress at [facility]. Will let facility know.
Original Note:
Spoke with attending who stated that patient has been medically cleared for discharge today. Placed a call to [facility] in admissions at [facility] who confirmed bed availability for today. Placed a call to patient's insurance [facility]
phone [phone] and fax [phone]. Spoke with a field representative named, Hawa Grewal, who took preliminary information and stated that all clinical should be faxed to, number above.
Will fax clinical and await hopeful authorization.
Plan: Case management will continue to follow and assist with discharge planning. [facility] upon receipt of authorization.
[2024-01-18 11:55] VITALS: BP 108/62
--- NOTE | 2024-01-18 12:14 | WOUNDNOTE ---
LEFT LATERAL HEEL
--- NOTE | 2024-01-18 12:15 | WOUNDNOTE ---
RIGHT LATERAL HEEL
--- NOTE | 2024-01-18 12:16 | WOUNDNOTE ---
GLUTEAL CLEFT/MAGUE RECTUM
--- NOTE | 2024-01-18 12:16 | WOUNDNOTE ---
GLUTEAL CLEFT/MAGUE RECTUM
--- NOTE | 2024-01-18 12:17 | WOUNDNOTE ---
WON RN NOTE: Followed up today with assistance of LORETTA Damon. Gluteal cleft close to rectum appears to be a stage 3 vs deeper evolving stage 4 PI. Now open and draining, base is yellow mixed with pink. R posterior leg and heel with healing ulcers. L
lateral heel with blood blister. All wounds improved since last seen. Dressings changed using honey gel to all wounds with local wound care except L heel, silicone foam applied. Using offloading heel boots and is on Air mattress. Patient states she
is eating better and getting protein in diet. Spoke to son Jason at bedside, states his mom is for discharge to [facility] either today or tomorrow, will update discharge instructions. Will confirm change of wound care orders with hospitalist. Son made
aware patient will eventually need care givers at home to help with ADL's and wound care. Son states he is working on it and that urologist mentioned an ostomy for her urine down the road. Answered all of son's questions. CM aware that patient will
need an air mattress at [facility]. Repositioned patient onto R semi side lying position, pressure ulcer prevention measures reviewed with patient.
--- NOTE | 2024-01-18 12:17 | WOUNDNOTE ---
RIGHT POSTERIOR LEG
[2024-01-18 13:07] VITALS: BP 100/63; BP 115/69; PULSE 123
--- NOTE | 2024-01-18 14:04 | W.PN.HOSP.TC ---
Today's Communication/Plan
-
d/c planning for returing to snf/rehab
Assessment / Plan
Assessment / Plan
Urinary tract infection with associated TME
Acute urinary retention
- Urine culture growing Ecoli/pseudomonas - pansensitive to antibiotics
- Susceptibility reviewed, maintain on cefepime
- Moseley placed for diversion of urine from excoriated skin, sacral wound
- Discussed with primary urology Dr. Coleman who is in agreement to maintain Moseley catheter to help with decubitus wound healing. Patient to f/u in office for Voiding trial
- Continue on IV cefepime and will transition to oral for groin therapy at discharge
VLADISLAV on CKD stage 3b
Hyperkalemia -resolved
Hyponatremia - resolved
- cap IVF
- s/p dextrose/insulin
- Lokelma prn
- Creatinine down to 1 today.
Chronic Wounds POA
- R posterior calf DTI
- R heel stage 3 pressure injury
- Sacral/buttocks/madalyn rectal area DTI. dark maroon mixed with non blanchable red
- L lateral heel with blood blister suspect DTI.
- L 5th toe nail lifted up, no drainage
- follow wound care recs
Hypotension
-Patient systolic blood pressure in 80s in the morning, amiodarone dose provided after blood pressure improved
Hx of Afib with RVR
Tachybradycardia syndrome status post pacemaker placement
- continue Amiodarone/Eliquis
- was on Metoprolol XL 25mg from last admit but not on admission med list, will consider resumption if BP allows
- Patient will tolerate Lopressor 25 mg twice daily, continue for now
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
- continue Eliquis
Chronic HFpEF
-Resumed back on torsemdie today, monitor weight.
- monitor I/Os, weights
Peripheral neuropathy
- more alert, resume Tramadol
Pancreatic insufficiency
- resume pancreatic replacement medications
Essential Hypertension
-increased dose of lopressor.
History of C. difficile (remote)
- at risk of recurrence but monitor
- probiotic while on abx
Recent Sepsis due to R heel cellulitis - completed Abx
GERD - continue PPI
DVT ppx: SC Heparin
Code: Full
Anticipated Discharge: Within 24 hours
Subjective/Interval History
-
Date of Service: January 18, 2024
no new issues overnight
afebrile
Objective Data
-
Vital Signs:
Vital Signs
Temp Pulse Resp BP Pulse Ox
97.7 F 107 22 108/62 96
01/18/24 11:55 01/18/24 11:55 01/18/24 11:55 01/18/24 11:55 01/18/24 11:55
I&O
01/17/24 01/18/24 01/19/24
06:59 06:59 06:59
Intake Total 720 / 720
Output Total 1100 / 1100 2450 / 2450
Balance -380 / -380 -2450 / -2450
Review of Systems
-
Respiratory: Reports No Symptoms
Cardiac: Reports No Symptoms
Abdomen/GI: Reports No Symptoms
Physical Exam
-
General: Comfortable
HEENT: Negative Oxygen
Respiratory: Clear to Auscultation
Cardiac: Regular Rhythm and S1/S2; Negative Murmur or Rub
GI: Soft, Nontender and Nondistended
Genito-urinary: Moseley (Dark yellow urine)
Musculoskeletal: No Edema
Skin: Decubitus Ulcers (DTI on sacrum. left heel stage III ulcer - dressed )
Neuro: Awake, Alert and Oriented
Psych: Calm
[2024-01-18 14:25] VITALS: BP 100/63; BP 115/69; PULSE 123
[2024-01-18 15:05] VITALS: BP 100/60
== END 2024-01-18 18:56 | DRG 91 ==
LOC: 3 WEST ACU 16:53
PROVIDERS: Nurse Practitioner; ADMITTING PHYSICIAN Internal Medicine; ATTENDING PHYSICIAN Hospitalist; EMERGENCY PHYSICIAN Student in an Organized Health Care Education/Training Program; FAMILY PHYSICIAN Hospitalist
DX: G92.8 Other toxic encephalopathy (principal); L89.613 Pressure ulcer of right heel, stage 3; I50.32 Chronic diastolic (congestive) heart failure; E87.1 Hypo-osmolality and hyponatremia; N39.0 Urinary tract infection, site not specified; N17.9 Acute kidney failure, unspecified; I13.0 Hypertensive heart and chronic kidney disease with heart failure and stage 1 through stage 4 chronic kidney disease, or unspecified chronic kidney disease; Z11.52 Encounter for screening for COVID-19; Z79.01 Long term (current) use of anticoagulants; I48.0 Paroxysmal atrial fibrillation; E78.5 Hyperlipidemia, unspecified; E86.0 Dehydration; E87.5 Hyperkalemia; N18.32 Chronic kidney disease, stage 3b; K21.9 Gastro-esophageal reflux disease without esophagitis; K86.89 Other specified diseases of pancreas; G62.9 Polyneuropathy, unspecified; L89.156 Pressure-induced deep tissue damage of sacral region; L89.626 Pressure-induced deep tissue damage of left heel
CPT/HCPCS: 51702; 71046; 80048; 80053; 81003; 81015; 82962; 83605; 83880; 85025; 87070; 87077; 87086; 87186; 87502; 87811; 92526; 92610; 93005; 94760; 96374; 97163; 97166; 97530; 97535; 99285

== ENCOUNTER → 2024-01-20 10:39 | Outpatient (REF) | payer MEDICARE, OTHER, SELFPAY ==
[2024-01-20 11:22] LABS: % Basophils 0.3 % (0-2); % Eosinophils 1.6 % (0-6); % Immature Granulocytes 1.2 % (0-0.5); % Lymphocytes 15.1 % (20.5-51.1); % Monocytes 11.3 % (1.7-9.3); % Neutrophils 70.5 % (42.2-75.2); Absolute Eosinophils 0.1 10^3/uL (0-0.7); Absolute Immature Granulocytes 0.1 10^3/uL (0-0.05); Absolute Lymphocytes 1.3 10^3/uL (1.2-3.4); Absolute Neutrophils 6.3 10^3/uL (1.4-6.5); Hematocrit 40.5 % (37.0-47.0); Hemoglobin 13.7 g/dL (12.0-16.0); Mean Corp Hgb Conc. 33.8 g/dL (33.0-37.0); Mean Corpuscular Hgb 33.6 pg (27.0-31.0); Mean Corpuscular Volume 99.3 fL (81.0-99.0); Mean Platelet Volume 11.2 fL (7.4-10.4); Nucleated Red Blood Cells % 0 %; Platelet Count 221 10^3/uL (130-400); Red Blood Cell Count 4.08 10^6/uL (4.20-5.40); Red Cell Dist. Width 14.3 % (11.5-14.5); White Blood Cell Count 8.9 10^3/uL (4.8-10.8)
== END ==
LOC: OLABP 10:39
PROVIDERS: ATTENDING PHYSICIAN Family Medicine
DX: G92.8 Other toxic encephalopathy (principal); N39.0 Urinary tract infection, site not specified; E87.1 Hypo-osmolality and hyponatremia; E87.5 Hyperkalemia; I11.0 Hypertensive heart disease with heart failure
CPT/HCPCS: 85025

== ENCOUNTER → 2024-01-31 10:16 | Outpatient (REF) | payer MEDICARE, OTHER, SELFPAY ==
[2024-01-31 10:40] LABS: % Basophils 0.8 % (0-2); % Eosinophils 1.6 % (0-6); % Immature Granulocytes 0.5 % (0-0.5); % Monocytes 15.3 % (1.7-9.3); % Neutrophils 58.8 % (42.2-75.2); Absolute Basophils 0.1 10^3/uL (0-0.2); Absolute Eosinophils 0.1 10^3/uL (0-0.7); Absolute Lymphocytes 1.9 10^3/uL (1.2-3.4); Absolute Monocytes 1.3 10^3/uL (0.1-0.6); Absolute Neutrophils 4.9 10^3/uL (1.4-6.5); Hematocrit 36.4 % (37.0-47.0); Hemoglobin 11.7 g/dL (12.0-16.0); Mean Corp Hgb Conc. 32.1 g/dL (33.0-37.0); Mean Corpuscular Hgb 33.3 pg (27.0-31.0); Mean Corpuscular Volume 103.7 fL (81.0-99.0); Mean Platelet Volume 12.2 fL (7.4-10.4); Nucleated Red Blood Cells % 0 %; Platelet Count 171 10^3/uL (130-400); Red Blood Cell Count 3.51 10^6/uL (4.20-5.40); Red Cell Dist. Width 14.6 % (11.5-14.5); White Blood Cell Count 8.3 10^3/uL (4.8-10.8)
[2024-01-31 10:57] LABS: Blood Urea Nitrogen 30 mg/dl (7-17); Calcium 8.3 mg/dl (8.4-10.2); Carbon Dioxide 26 mmol/L (22-30); Chloride 102 mmol/L (98-107); Glucose 47 mg/dl (70-99); Potassium 3.8 mmol/L (3.5-5.1); eGFR 30.83
[2024-01-31 11:00] LABS: Sodium 137 mmol/L (135-145)
[2024-01-31 12:48] LABS: Glycohemoglobin (HgbA1c) 5.6 % (4.0-5.6)
== END ==
LOC: OLABP 10:16
PROVIDERS: ATTENDING PHYSICIAN Family Medicine
DX: E87.1 Hypo-osmolality and hyponatremia (principal); E87.5 Hyperkalemia; N39.0 Urinary tract infection, site not specified; B96.20 Unspecified Escherichia coli [E. coli] as the cause of diseases classified elsewhere; B96.5 Pseudomonas (aeruginosa) (mallei) (pseudomallei) as the cause of diseases classified elsewhere; J44.9 Chronic obstructive pulmonary disease, unspecified; I10 Essential (primary) hypertension; Z95.0 Presence of cardiac pacemaker; N17.9 Acute kidney failure, unspecified; N18.30 Chronic kidney disease, stage 3 unspecified; I50.9 Heart failure, unspecified; I48.91 Unspecified atrial fibrillation; I82.622 Acute embolism and thrombosis of deep veins of left upper extremity; E03.9 Hypothyroidism, unspecified; K50.90 Crohn's disease, unspecified, without complications; G25.81 Restless legs syndrome
CPT/HCPCS: 36415; 80048; 83036; 85025

== ENCOUNTER 2024-02-05 13:35 | Inpatient (IN) | payer MEDICARE, SELFPAY ==
[2024-02-05] VITALS (60 sets, daily range): BP systolic 62–158; BP diastolic 22–120; BMI 27.2
--- NOTE | 2024-02-05 08:41 | ED.GENMED ---
History of Present Illness
General
Chief Complaint: Fever
Time Seen by Provider: 02/05/24 08:41
History of Present Illness
History of Present Illness:
TIME OF INITIAL ENCOUNTER: 8:45 AM
HPI: Patient came in by ambulance due to fever from [facility]. She was also found to be hypoxic with room air sat of 88% but denies shortness of breath. She also arrived with diarrhea in her diaper. The patient is very limited historian and
provides no meaningful history.
EXAM:
GENERAL: The patient is ill-appearing, febrile, and hypotensive
HEENT: Dry oral mucosa, sunken eyes
CARDIOVASCULAR: No murmurs, normal heart rate, regular rhythm, No chest wall tenderness
PULMONARY: No respiratory distress, breath sounds are clear and equal
ABDOMEN: Soft with no peritoneal signs, no tenderness, gross hematuria noted in tubing/bag of Moseley catheter
BACK: Sacral decub noted with stool noted in the small portion of the decubitus ulcer
NEUROLOGIC: Equally decreased strength all extremities, no coordination deficits
PSYCHIATRIC: Limited insight and judgment
EXTREMITIES: Nontender, no edema, moves all extremities equally
SKIN: Appears pale
NUMBER AND COMPLEXITY OF PROBLEMS ADDRESSED AT THE ENCOUNTER
� Chronic conditions affecting care: A-fib, CHF, hyperlipidemia, has had pneumonia, has had sepsis
� Acute Exacerbation and/or Progression of Chronic Illness: This is an acute problem
� Differential Diagnosis includes: Sepsis, C. difficile, pneumonia, urinary tract infection, bacteremia, wound
AMOUNT AND/OR COMPLEXITY OF DATA TO BE REVIEWED AND ANALYZED
� I performed an independent evaluation of and my interpretation is:
EKG:
CT:
X-rays: Chest x-ray shows no definite abnormality
Laboratory Studies: White count 13.6, lactic 1.7, creatinine 1.8, alk phos 212, mild transaminase elevation, urinalysis shows blood but no definite infection.
Other:
� Review of other/old records: I reviewed records from [facility]
� Clinical information was obtained by an independent historian: EMS, records from [facility]
� Prescriptions/Medications Considered but not given:
� Further testing considered but not performed:
RISK OF COMPLICATIONS AND/OR MORBIDITY OR MORTALITY OF PATIENT MANAGEMENT
� Social determinants of health affecting care: Resides at [facility]
� Discussion with other providers: Hospitalist for admission at 10:58 AM, Dr. Marcano.
� Escalation of care including admission/observation vs risk of discharge considered: Upon arrival, temperature was noted to be 39.4 Celsius. She had stool noted in the sacral decubitus wound. Foul odor noted. She is
hypotensive upon arrival�was given a liter of fluid.
ANY OTHER UPDATES:
10:30 AM: Despite 30 mL/kg of IV fluids, remains hypotensive. Will add pressors. Gave broad-spectrum antibiotics. Potential source of infection is the sacral wound.
Past History
Past History
ED Past Medical History: Arrthythmia, CHF, GERD and Other (Chronic kidney disease)
ED Past Surgical History: Appendectomy, Cardiac (Pacemaker), Cholecystectomy, Orthopedic and Tonsilectomy
Phy Exam
Physical Exam
Physical Exam:
See HPI
Course
Orders/Labs/Results
Orders:
Orders
02/05/24 08:43
CR Chest Portable - 1 View Urgent
Comment:
Reason For Exam: fever hypoxia
Reason Study Needs to be Portable: Patient Unstable
02/05/24 08:45
Complete Blood Count/With Diff Urgent
Comprehensive Metabolic Panel Urgent
Lactic Acid Q4H
Comment: CANCEL 2nd LACTIC ACID IF 1st LACTIC ACID IS LESS THAN 2
Blood Culture Q30M
STEVE Source: Blood/Venous
Specimen Description:
02/05/24 08:50
STOOL [C difficile Antigen & Toxins] Urgent
STEVE Source: Feces/Stool
Specimen Description:
Stool Culture Urgent
STEVE Source: Feces/Stool
Specimen Description:
0.9% Sodium Chloride 1000 ml [Nss] 1,000 ml IV BOLUS
02/05/24 08:55
Electrocardiogram (*1) Urgent
Reason for Study: Atrial Fibrillation
EKG- Treatment ONCE
02/05/24 08:58
COVID-19 Antigen Urgent
Source: Nasal Swab
Influenza A+B Rapid Molecular Urgent
STEVE Source: Nasal Swab
Specimen Description:
Wound Culture [Wound/Abscess/Other Culture] Urgent
STEVE Source: Decubitis Ulcer
Specimen Description:
Date Specimen was Collected: 02/05/24
Time Specimen was Collected: 08:56
02/05/24 09:02
Acetaminophen [Tylenol] 1,000 mg PO NOW STA
02/05/24 09:39
Urinalysis Reflex To Culture Urgent
Date Specimen was Collected: 02/05/24
Time Specimen was Collected: 09:37
Urine Microscopic Reflex Cult Urgent
Blood Culture Q30M
STEVE Source: Blood/Venous
Specimen Description:
02/05/24 09:48
0.9% Sodium Chloride 1000 ml [Nss] 1,000 ml IV BOLUS
02/05/24 09:49
Cefepime HCl [Maxipime] 1,000 mg IV NOW STA
Vancomycin [Vancocin] 1,500 mg 0.9% Sodium Chloride 500 ml [Nss] 500 ml IV NOW
02/05/24 09:51
0.9% Sodium Chloride 1000 ml [Nss] 1,000 ml IV BOLUS
02/05/24 09:54
Sterile Water [Sterile Water For Injection] 10 ml .ROUTE .STK-MED ONE
02/05/24 11:00
NORepinephrine 4 MG/250 ML [Levophed] 4 mg in 250 ml IV PER PROTOCOL
Initial dose in mcg/min, then titrate:: 10
Titrate to keep:: MAP > 65 mmHg
Titrate by mcg/min:: 1-2 mcg/min
Frequency of titrations (minutes):: 5
Maximum dose in ICU in mcg/min:: 30
Maximum dose in IMU in mcg/min:: 8
Maximum dose in IVU in mcg/min:: 4
Begin to taper infusion when:: Remained at goal for 4hrs
Taper by mcg/min:: 1-2 mcg/min
Frequency of taper (minutes) if patient maintains goal:: 30
Taper to off?: Yes
If infusion off & no longer maintaining goal:: Contact Provider
Abnormal Lab Results
02/05/24 02/05/24
08:45 09:39
WBC 13.6 H 10^3/uL
(4.8-10.8)
RBC 3.83 L 10^6/uL
(4.20-5.40)
MCV 104.2 H fL
(81.0-99.0)
MCH 33.4 H pg
(27.0-31.0)
MCHC 32.1 L g/dL
(33.0-37.0)
RDW 14.7 H %
(11.5-14.5)
MPV 11.3 H fL
(7.4-10.4)
Abs Immat Gran (auto) 0.1 H 10^3/uL
(0-0.05)
Absolute Neuts (auto) 12.4 H 10^3/uL
(1.4-6.5)
Absolute Lymphs (auto) 0.4 L 10^3/uL
(1.2-3.4)
Immature Gran % 0.9 H %
(0-0.5)
Neutrophils % 91.0 H %
(42.2-75.2)
Lymphocytes % 3.2 L %
(20.5-51.1)
BUN 30 H mg/dl
(7-17)
Creatinine 1.8 H mg/dL
(0.6-1.0)
AST 105 H U/L
(14-36)
ALT 53 H U/L
(0-35)
Alkaline Phosphatase 212 H U/L
(38-126)
Total Protein 5.1 L g/dl
(6.3-8.2)
Albumin 2.7 L g/dl
(3.5-5.0)
Ur Occult Blood Reflex 3+ A
(Negative)
Urine RBC >100 A /HPF
(0-2)
Urine Albumin (Reflex) 3+ A
(Neg - Trace)
02/05/24 08:45
02/05/24 08:45
Vital Signs
Blood pressure: 84/36
Initial and Last Documented VS:
Initial Vital Signs
Resp Pulse Ox
25 90
02/05/24 08:39 02/05/24 08:39
Last Documented Vital Signs
Temp Pulse Resp BP Pulse Ox
36.6 C 66 18 99/46 97
02/05/24 11:06 02/05/24 11:30 02/05/24 11:30 02/05/24 11:30 02/05/24 11:30
*Critical Care Note
Total Time (30-74mins, 75-104mins- exclusive of procedures): 60min
comment:
Patient's blood pressure remains low despite 30 mL/kg fluid boluses. Placed on broad-spectrum antibiotics, and then placed on pressors. Vital signs closely monitored.
ED Attending Note
-
Portions of this chart may have been created with voice recognition software.� Occasional wrong word or��sound alike� substitutions may have occurred due to the inherent limitations of voice recognition software.
Discharge Plan
Departure
Patient Disposition: Admit
Date of Disposition: 02/05/24
Time of Disposition: 11:26
Presentation/result/management discussed w/ accepting MD/DO: Hospitalist
Discharge Problem:
Septic shock
Prescriptions:
No Action
amiodarone 200 mg Tablet
200 mg PO BID
Culturelle 10 billion cell Capsule
1 cap PO DAILY
Creon 6,000-19,000 -30,000 unit Capsule,Delayed Release(Dr/Ec)
6,000 cap PO TID
calcitriol 0.5 mcg Capsule
0.5 mcg PO DAILY
estradiol 0.01 % (0.1 mg/gram) Cream
1 g VAGINAL DAILYPRN PRN (Reason: estrogen supplement)
acetaminophen [Tylenol Extra Strength] 500 mg Tablet
1,000 mg PO Q6HPRN PRN (Reason: mild pain)
amitriptyline 10 mg Tablet
20 mg PO HS
omeprazole 20 mg Capsule,Delayed Release(Dr/Ec)
20 mg PO DAILY
topiramate 50 mg Tablet
50 mg PO DAILY
melatonin 5 mg Tablet
5 mg PO HS
potassium chloride 20 mEq Tablet Extended Release
20 meq PO DAILY
Gemtesa 75 mg Tablet
75 mg PO DAILY
acetaminophen 325 mg Tablet
650 mg PO Q4HPRN PRN (Reason: fever >100)
ferrous sulfate 325 mg (65 mg iron) Tablet
325 mg PO DAILY
lidocaine 5 % Adhesive Patch,Medicated
1 patch TOPICAL DAILY
torsemide 20 mg tablet
20 mg PO DAILY
docusate sodium 100 mg capsule
100 mg PO BID
metoprolol tartrate 25 mg Tablet
25 mg PO BID Qty: 60 0RF
alprazolam [Xanax] 0.25 mg Tablet
0.25 mg PO DAILYPRN PRN (Reason: anxiety)
zinc sulfate 220 mg Capsule
220 mg PO DAILY
ipratropium-albuterol [DuoNeb] 0.5 mg-3 mg(2.5 mg base)/3 mL Solution For Nebulization
3 ml INHALATION R Q6HPRN PRN (Reason: sob)
ondansetron HCl [Zofran] 4 mg Tablet
4 mg PO Q8HPRN PRN (Reason: nausea)
magnesium hydroxide [Milk of Magnesia] 400 mg/5 mL Suspension
2,400 mg PO DAILYPRN PRN (Reason: if no bm on 4th day)
bisacodyl [Dulcolax (bisacodyl)] 10 mg Suppository
10 mg ID DAILYPRN PRN (Reason: if no bm on 5th day and if nothing aftr mom)
oxycodone 5 mg Tablet
5 mg PO TID
mineral oil Oil
1 applic TOPICAL DAILY
Dakin's Solution 0.125 % Solution
1 applic TOPICAL DAILY
Fleet Enema 19-7 gram/118 mL Enema
118 ml ID DAILYPRN PRN (Reason: if no bm aon 6th day)
Referrals:
Radha Membreno DO [Family Provider] -
Interventions
Interventions:
*Risk Screen - Suicide Last Done: 02/05/24 09:24
*Neglect/Abuse Screening Last Done: 02/05/24 09:24
ED- Fall Risk Assessment Last Done: 02/05/24 09:25
*ED COVID-19 Vaccine History Last Done: 02/05/24 09:01
ED- Neurological Assessment Last Done: 02/05/24 09:25
ED-Skin Assessment Last Done: 02/05/24 09:00
Discharge Date and Time
Print Language: MAURITIAN
[2024-02-05] MEDS: NSS 1000 IV ×3 (08:57→22:30)
[2024-02-05 09:05] LABS: % Basophils 0.2 % (0-2); % Eosinophils 0.6 % (0-6); % Immature Granulocytes 0.9 % (0-0.5); % Lymphocytes 3.2 % (20.5-51.1); % Monocytes 4.1 % (1.7-9.3); Absolute Eosinophils 0.1 10^3/uL (0-0.7); Absolute Immature Granulocytes 0.1 10^3/uL (0-0.05); Absolute Lymphocytes 0.4 10^3/uL (1.2-3.4); Absolute Monocytes 0.6 10^3/uL (0.1-0.6); Absolute Neutrophils 12.4 10^3/uL (1.4-6.5); Hematocrit 39.9 % (37.0-47.0); Hemoglobin 12.8 g/dL (12.0-16.0); Mean Corp Hgb Conc. 32.1 g/dL (33.0-37.0); Mean Corpuscular Hgb 33.4 pg (27.0-31.0); Mean Corpuscular Volume 104.2 fL (81.0-99.0); Mean Platelet Volume 11.3 fL (7.4-10.4); Nucleated Red Blood Cells % 0 %; Platelet Count 181 10^3/uL (130-400); Red Blood Cell Count 3.83 10^6/uL (4.20-5.40); Red Cell Dist. Width 14.7 % (11.5-14.5); White Blood Cell Count 13.6 10^3/uL (4.8-10.8)
[2024-02-05] MEDS: TYLENOL 1000 MG PO (09:11)
[2024-02-05 09:17] LABS: ALT (SGPT) 53 U/L (0-35); AST (SGOT) 105 U/L (14-36); Albumin 2.7 g/dl (3.5-5.0); Alkaline Phosphatase 212 U/L (38-126); Blood Urea Nitrogen 30 mg/dl (7-17); Calcium 8.5 mg/dl (8.4-10.2); Carbon Dioxide 25 mmol/L (22-30); Chloride 102 mmol/L (98-107); Glucose 95 mg/dl (70-99); Potassium 3.9 mmol/L (3.5-5.1); Sodium 138 mmol/L (135-145); Total Bilirubin 1.2 mg/dl (0.2-1.3); Total Protein 5.1 g/dl (6.3-8.2); eGFR 26.77
[2024-02-05 09:18] LABS: Lactic Acid 1.7 mmol/L (0.7-2.0)
[2024-02-05 09:27] LABS: COVID-19 Antigen Negative (Negative)
[2024-02-05 09:47] LABS: Urine Albumin 3+ (Neg - Trace); Urine Bilirubin Negative (Negative); Urine Character Bloody (Clear); Urine Color Red; Urine Glucose Negative (Negative); Urine Ketone Negative (Negative); Urine Leukocyte Negative (Negative); Urine Nitrite Negative (Negative); Urine Occult Blood 3+ (Negative); Urine Specific Gravity 1.015 (<1.030); Urine Urobilinogen Negative (Neg - 1+); Urine pH 6.5 (5.0-9.0)
[2024-02-05] MEDS: MAXIPIME 1000 MG IV ×2 (09:56→20:45)
[2024-02-05 10:28] LABS: Urine Red Blood Cell >100 /HPF (0-2); Urine Squamous Cell 0-2 /LPF (Few)
[2024-02-05] MEDS: VANCOCIN 530 MG IV (10:29)
[2024-02-05] MEDS: LEVOPHED 250 IV ×4 (10:59→22:39)
--- NOTE | 2024-02-05 13:48 | PHA.VAN.IN ---
Assessment
- Assessment
Renal Function: Appears elevated from baseline
Renal Function may be Overestimated due to: age
Plan
- Plan
Initial / Loading Dose: 1500mg 02/04
Maintenance Regimen: prn by level
Monitoring: random 12/2 in am
Pharmacokinetics Vancomycin I
- -
Patient Age: 88
Patient Sex: Female
Vancomycin Day #: 1
Indication: Skin And Soft Tissue
Requesting Provider: Dr. Soriano
Pertinent Antimicrobial Allergies:
sulfa=swelling
erythromycin=vomiting
Height / Weight:
Height 5 ft 2 in
Actual Weight 67.5 kg
IBW in k.1
- Vital Signs / Lab Results
Temp Pulse Resp BP Pulse Ox
97.8 F 68 20 118/50 98
02/05/24 11:06 02/05/24 13:15 02/05/24 13:15 02/05/24 13:15 02/05/24 13:15
Lab Results - Hematology
02/05/24
08:45
WBC 13.6 H
Lab Results - Chemistry
02/05/24
08:45
BUN 30 H
Creatinine 1.8 H
Albumin 2.7 L
02/05/24 02/05/24
08:45 12:45
Lactic Acid 1.7 Cancelled
Lab Results - Urine
02/05/24
09:39
Urine Nitrite (Reflex) Negative
Leukocyte Esterase Rfl Negative
Urine WBC (Reflex)
Ur Squamous Epith Cells 0-2
Urine Bacteria (Reflex)
Microbiology Results
02/05/24 08:58 Gram Stain - Preliminary
Decubitis Ulcer
02/05/24 08:58 Influenza Types A & B (ARACELIS) - Final
Nasal Swab Negative for Influenza A & B, NAAT
Negative results must be combined with clinical observations
and patient history.
Nucleic Acid Amplification test (NAAT)performed on the
[employer] platform.
--- NOTE | 2024-02-05 14:21 | CON.INTV ---
Consultation
Consultation Request
Date/Time Consultation Requested: 02/05/24
Date/Time Consultation Performed: 02/05/24
Performing Provider: Sharron
Reason for Consultation: Septic Shock
Medical History
-
History of Present Illness:
Patient is an 88-year-old female with previous history of recurrent UTI (recently admitted and discharged on 01/20/2024), presenting from [facility] for fever. She was found to be hypoxemic on room air at 88%. She arrived with diarrhea in her
diaper. In the ER, was also notably hypotensive, placed on Levophed. She had stool coming out of her vagina. There is extreme excoriation in her pelvic area. She is admitted to ICU for septic shock.
She does not provide meaningful history, there is history of depression. She is DNR.
Past Medical History
Past Medical History: Other (see list below)
Social History
Tobacco: Non-smoker
Alcohol: None
Drug: None
Family History
Family History: Reviewed & Not Pertinent
Allergies / Home Medications
Allergies
Allergy/AdvReac Type Severity Reaction Status Date / Time
aspirin [From Percodan] Allergy Nausea / Verified 02/05/24 10:31
Vomiting
erythromycin base Allergy Vomiting Verified 02/05/24 10:31
oxycodone [From Percodan] Allergy Vomiting Verified 02/05/24 10:31
phenobarbital Allergy Rash Verified 02/05/24 10:31
Sulfa (Sulfonamide Allergy Swelling Verified 02/05/24 10:31
Antibiotics)
zolpidem [From Ambien] Allergy Unknown Verified 02/05/24 10:31
Home Medications
�Medication �Instructions �Recorded �Confirmed �Last Taken �Type
Lactobacillus rhamnosus GG 10 1 cap PO DAILY Supplement 12/13/22 02/05/24 12/05/22 20:00 History
billion cell capsule (Culturelle)
amiodarone 200 mg tablet 200 mg PO BID Arrhythmia 12/13/22 02/05/24 12/12/22 20:00 History
calcitriol 0.5 mcg capsule 0.5 mcg PO DAILY Supplement 12/13/22 02/05/24 12/12/22 20:00 History
estradiol 0.01% (0.1 mg/gram) 1 g vaginal DAILYPRN PRN estrogen 12/13/22 02/05/24 Unknown History
vaginal cream supplement
[id number] 6,000 cap PO TID Gastrointestinal 12/13/22 02/05/24 12/12/22 20:00 History
6,000-19,000-30,000 unit Issue
capsule,delayed rel (Creon)
acetaminophen 500 mg tablet 1,000 mg PO Q6HPRN PRN mild pain 12/17/23 02/05/24 Unknown History
(Tylenol Extra Strength)
amitriptyline 10 mg tablet 20 mg PO HS Neurological Condition 12/17/23 02/05/24 Unknown History
melatonin 5 mg tablet 5 mg PO HS Sleep 12/17/23 02/05/24 Unknown History
omeprazole 20 mg capsule,delayed 20 mg PO DAILY Gastrointestinal 12/17/23 02/05/24 Unknown History
release Issue
potassium chloride 20 mEq 20 meq PO DAILY Supplement 12/17/23 02/05/24 Unknown History
tablet,extended release
topiramate 50 mg tablet 50 mg PO DAILY Neurological 12/17/23 02/05/24 Unknown History
Condition
vibegron 75 mg tablet (Gemtesa) 75 mg PO DAILY Urinary Issue 12/17/23 02/05/24 Unknown History
acetaminophen 325 mg tablet 650 mg PO Q4HPRN PRN fever >100 01/13/24 02/05/24 Unknown History
docusate sodium 100 mg capsule 100 mg PO BID Supplement 01/13/24 02/05/24 Unknown History
ferrous sulfate 325 mg (65 mg 325 mg PO DAILY Supplement 01/13/24 02/05/24 Unknown History
iron) tablet
lidocaine 5 % topical patch 1 patch topical DAILY right thigh 01/13/24 02/05/24 Unknown History
torsemide 20 mg tablet 20 mg PO DAILY Fluid 01/13/24 02/05/24 Unknown History
Retention/Swelling
metoprolol tartrate 25 mg tablet 25 mg PO BID Afib #60 tabs 01/18/24 02/05/24 Unknown Rx
alprazolam 0.25 mg tablet (Xanax) 0.25 mg PO DAILYPRN PRN anxiety 02/05/24 02/05/24 Unknown History
bisacodyl 10 mg rectal suppository 10 mg CA DAILYPRN PRN if no bm on 02/05/24 02/05/24 Unknown History
(Dulcolax (bisacodyl)) 5th day and if nothing aftr mom
ipratropium 0.5 mg-albuterol 3 mg 3 ml inhalation R Q6HPRN PRN sob 02/05/24 02/05/24 Unknown History
(2.5 mg base)/3 mL nebulization
soln
magnesium hydroxide 400 mg/5 mL 2,400 mg PO DAILYPRN PRN if no bm 02/05/24 02/05/24 Unknown History
oral suspension (Milk of Magnesia) on 4th day
mineral oil 1 applic topical DAILY both feet 02/05/24 02/05/24 Unknown History
ondansetron HCl 4 mg tablet 4 mg PO Q8HPRN PRN nausea 02/05/24 02/05/24 Unknown History
oxycodone 5 mg tablet 5 mg PO TID 02/05/24 02/05/24 Unknown History
sodium hypochlorite 0.125 % 1 applic topical DAILY left 02/05/24 02/05/24 Unknown History
solution (Dakin's Solution) buttocks
sodium phosphates 19 gram-7 118 ml CA DAILYPRN PRN if no bm 02/05/24 02/05/24 Unknown History
gram/118 mL enema (Fleet Enema) aon 6th day
zinc sulfate 220 mg capsule 220 mg PO DAILY 02/05/24 02/05/24 Unknown History
Review of Systems
-
History Source: Patient
All other systems: Negative unless noted
Vitals / Labs / Diagnostic Testing
Vital Signs
Temp Pulse Resp BP Pulse Ox
97.8 F 68 18 104/40 98
02/05/24 11:06 02/05/24 14:00 02/05/24 14:00 02/05/24 14:00 02/05/24 14:00
Lab Data
02/05/24 08:45
02/05/24 08:45
Microbiology
02/05/24 08:58 Decubitis Ulcer Gram Stain - Preliminary
02/05/24 08:58 Nasal Swab Influenza Types A & B (ARACELIS) - Final
Negative for Influenza A & B, NAAT
Negative results must be combined with clinical observations
and patient history.
Nucleic Acid Amplification test (NAAT)performed on the
[employer] platform.
Diagnostic Testing:
Physical Exam
-
HEENT: Normocephalic, Anicteric and Moist Mucous Membranes
Cardiovascular: S1/S2 and Regular Rhythm
Respiratory: Clear and Non-Labored Respirations
GI: Soft, Non Distended and Non Tender
Neurology: Awake, Alert, Oriented and No Motor Deficits
Skin: Warm, Dry and Good Color
General: Comfortable and Other (NAD)
Assessment
-
Patient is an 88-year-old female with previous history of recurrent UTI (recently admitted and discharged on 01/20/2024), presenting from [facility] for fever. She was found to be hypoxemic on room air at 88%. She arrived with diarrhea in her
diaper. In the ER, was also notably hypotensive, placed on Levophed. She had stool coming out of her vagina. There is extreme excoriation in her pelvic area. She is admitted to ICU for septic shock.
Septic shock on pressors
Recurrent UTI, recent admission 01/20/2024
Diarrhea with stool incontinence
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
Acute kidney injury
Leukocytosis
Fever
Acute hypoxic respiratory failure
Conditions present prior to admission
Chronic sacral decubitus/lower extremity wound
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
Chronic diastolic congestive heart failure
Chronic kidney disease stage IIIb
Peripheral neuropathy
Pancreatic insufficiency
Essential hypertension
History of clostridium difficile infection
Gastro-esophageal disease
PAF
Tachy-janak syndrome s/p PPM
Diverticulosis with hx diverticulitis
Hip/knee replacements
Neurostimulator placement 1988
Appendectomy
Tonsillectomy
Plan
No current signs of metabolic encephalopathy or MS changes/following commands
Psychiatric history noted above including depression, psych eval
Denies pain at this time.
Pain/sedation: PRN
RASS goals: 0
Hemodynamically unstable, requiring pressors.
Requiring pressors: levo @16, add vaso, PICC line
Cardiac history reviewed--AF/SSS s/p PPM, CHF
Prior ECHO reviewed indicating stable function
Hold home meds while hypotensive
Monitor on telemetry
Oxygen needs: O2 vikash 88% on RA on presentation, placed on low supplemental O2
Prior history of lung disease: none known, never smoker
Supplemental O2 as indicated to maintain sats > 89%
CXR/CT reviewed indicating NAD
Would need outpatient w/u with PFTs to evaluate fully
For now, wean O2 as tolerated, nebs PRN
NPO, resume diet when able
Stool coming from vaginal vault, CT AP now
Could be cause for recurrent UTI
Aspiration precautions, HOB > 30 degrees
Continue GERD meds
VLADISLAV present on CKD history
Void trials
Follow urine output, critical I/Os
Replete electrolytes as needed
Fever and increased WBC on presentation, suspect underlying sepsis
Started on empiric antibiotics
Cultures sent/pending
Blood
Urine + 01/13/24 for E coli/pseudomonas
09/28/23 + Ecoli
09/02/23 + E coli
02/11/23 + E coli
Follow fever trend, WBC count
Pressure ulcer noted as well, wound care
CBC stable, no signs of bleeding or coagulopathy.
DVT prophylaxis as assessed based on risk, including mechanical SCDs
Can transfuse if indicated for Hb <7, plt < 10
INR WNL
No prior h/o diabetes or thyroid disease
Monitor accuchecks PRN/SS coverage if needed
She is DNR, goals of care discussions are likely to be needed.
We will follow
Diagnostic Data
Chest X-Ray: 02/05/24- No focal interstitial or airspace opacity to indicate pneumonia. Stable mild asymmetric elevation of the right diaphragm. No pneumothorax or congestive heart failure. No other significant change.
CT Scan:
Echo: 12/09/22- Normal left ventricular size and systolic function. LV ejection fraction is 60-65% Diastolic function indeterminate. Mitral annular calcification.Mild mitral regurgitation. Aortic sclerosis without stenosis. Mild aortic
regurgitation. Mild tricuspid regurgitation. No prior study available for comparison.
PFT's:
Reports and relevant images were personally reviewed.
Critical Care time 65 mins -- The patient is admitted for acute critical illness for the treatment of vital organ failure and/or prevention of further life-threatening conditions. Total care includes time spent in review of history, physical exam,
medications, hemodynamic/ventilator parameters, laboratory data, imaging and discussion with house staff, pharmacy, respiratory therapy, goldbeater, and nursing.
--- NOTE | 2024-02-05 15:20 | W.PN.HOSP.TC ---
Today's Communication/Plan
-
admit ICU
Assessment / Plan
Assessment / Plan
Septic Shock on Levophed 16 mcg/min
WBC 13.6/hypotensive/UTI
UTI
with gross hematuria
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
Sacral decubitus
VLADISLAV on CKD 3
BUN/Creat 30/1.8
Hx of A. Fib
Pt was previously dc on Eliquis, not listed as currently taking. Eliquis was stopped due to hematuria
GERD
Hx of RUE/LUE DVT
osteoporosis/osteoarthritis
P: continue Levophed
consult CCM
Cefepime/Vanco pending cultures
Pt is a DNR and this was confirmed with her son KI Gomez outside of room
see dictated note
Anticipated Discharge: > 48 hours
Subjective/Interval History
-
Date of Service: February 05, 2024
Very weak
Objective Data
-
Labs:
Laboratory Results
02/05/24
08:45
WBC 13.6 H
Hgb 12.8
Hct 39.9
Plt Count 181
Sodium 138
Potassium 3.9
Chloride 102
Carbon Dioxide 25
BUN 30 H
Creatinine 1.8 H
Glucose 95
Calcium 8.5
Total Bilirubin 1.2
AST 105 H
ALT 53 H
Alkaline Phosphatase 212 H
Vital Signs:
Vital Signs
Temp Pulse Resp BP Pulse Ox
97.8 F 68 18 104/40 98
02/05/24 11:06 02/05/24 14:00 02/05/24 14:00 02/05/24 14:00 02/05/24 14:00
Review of Systems
-
History Source: Patient and Family (son, Jason at bedside)
Constitutional: Reports Fever (102.9)
EENT: Reports No Symptoms Reported
Respiratory: Reports No Symptoms
Cardiac: Reports No Symptoms
Genitourinary: Reports Dysuria
Physical Exam
-
General: Well Developed, Well Nourished, Fever and Appears Chronically Ill
HEENT: Normocephalic, Atraumatic and Moist Mucous Membranes
Respiratory: Clear to Auscultation (on shallow respirations)
Cardiac: Regular Rhythm and S1/S2
GI: Soft, Nontender and Nondistended
Neuro: Awake, Alert and Oriented
--- NOTE | 2024-02-05 15:21 | CM ---
CM following re: discharge planning.
Reviewed pt's chart, met with pt.
Pt is an 88 year old female, admitted with primary dx of Fever.
Pt reports she has been living at [facility] for 1.5 years, has 2 supportive sons, son Fabricio lives in [place] and is supportive. Pt reports she ambulates with a Rollator at baseline and admitted from [facility] where she was
for a short term rehab for around 2 weeks.
Pt stated she 'occasionally' thinks to hurt herself with no plan. Pt reports she has poor appetite, poor sleep and admitted being depressed. Pt stated she has never had those feelings before. Psychiatry consult requested.
PT and OT will evaluate the pt to determine a level of care at discharge.
PCP: Radha Lovett
Pharmacy: [address], [place]
D/C plan: uncertain at this time and will depend on pt's progress.
CM will follow with discharge plan updates as hospitalization progresses
--- NOTE | 2024-02-05 16:23 | PTCARENOTE ---
pt admitted from ED. AOx3 anxious. Pt tremulous, reports this is baseline for her. Pt reports depression r/t recent hospital stays, endorses passive thoughts of but states she does not wish to kill herself, and has no plan to kill herself
attending notified. This nursed asked if pt had plan to kill herself, pt replied 'no'. Artifact on monitor r/t tremors. appears afib with A pacing. Irregular to auscultation. lung sounds are diminished throughout, shallow poor effort. denies SOB.
2L via Nc. abd soft, NT. incont b&B. Pt reports of pain in vagina. Indwelling gregory changed, minimal output with brown sediment. During gregory insertion liquid stool appears to be coming from vagina. Urine and stool samples sent. Jenni area
excoriated. Decub ulcer on sacrum above anus. Pt reports pain in these areas. Pressure wounds also noted on right right buttock, left lateral knee, right heel. MASD noted under left breast. +2 pitting b/l LE pitting edema, pt reports this is
chronic. B/L PP detected with Doppler. Pt has norepinephrine running. BP 112/77 88MAP. VAT at bedside attempting draw on coags prior to picc. CT ordered. DIL at bedside. Bed alarm on, oriented to environment. CB in reach.
[2024-02-05 16:47] LABS: Urine Albumin 2+ (Neg - Trace); Urine Bilirubin Negative (Negative); Urine Character Very Cloudy (Clear); Urine Color Brown; Urine Glucose Negative (Negative); Urine Ketone Negative (Negative); Urine Leukocyte 2+ (Negative); Urine Nitrite Negative (Negative); Urine Occult Blood 4+ (Negative); Urine Urobilinogen Negative (Neg - 1+)
[2024-02-05] MEDS: DILAUDID 0.5 MG IV (16:51)
[2024-02-05 16:59] LABS: INR 1.35; PT 16.9 Sec (11.4-14.6)
[2024-02-05 17:00] LABS: APTT 33.1 Sec (23.4-35.0)
[2024-02-05] MEDS: ROXICODONE PO ×2 (17:03→21:21)
[2024-02-05 17:42] LABS: Urine Bacteria Moderate (Negative); Urine Red Blood Cell >100 /HPF (0-2); Urine White Cell >100 /HPF (0-5); Urine Yeast Few (Negative)
--- NOTE | 2024-02-05 18:17 | PTCARENOTE ---
pt having picc line placed at bedside.
--- NOTE | 2024-02-05 19:08 | VATNOTE ---
Attempted PICC placement as ordered. Difficulty placing PICC and having proper blood return; also unable to remove wire with catheter fully inserted. CXR shows malpositioned tip. After discussion with DATA WAREHOUSE CONSULTANT, decision was made to exchange the PICC
for a midline to allow for stable venous access for vasopressor medications.
--- NOTE | 2024-02-05 19:30 | PTCARENOTE ---
received report, dual RN bedside med rec, pt disoriented to time and place, drowsy, follows commands and ALMENDAREZ, paced on the monitor, + pulses, +2 anasarca, lungs diminished B/L with crackles @ both bases, SpO2 95% 2L NC, NPO, round soft nontender,
BSx4 hypoactive, gregory magnus output with brownish sediment, multiple wounds refer to worklist, Levo 16mcg, R midline, 18G RFA, 20G LFA, call pike within reach, son @ bedside and updated, pt going down to CT, otherwise refer to documentation.
--- NOTE | 2024-02-05 20:00 | PTCARENOTE ---
pt transferred to CT with RN and PCT, pt tolerated transfer to and from CT
--- NOTE | 2024-02-05 20:30 | PTCARENOTE ---
pt answered suicide admission questions and was promoted to be a 1:1, during report RN stated physicians aware and no 1:1 was ordered, pt answers she does not have any active plans, GARAGE DOOR INSTALLER and rubbish collection supervisor notified, GARAGE DOOR INSTALLER spoke with pt denies suicidal
thoughts, no order for 1:1 needed per GARAGE DOOR INSTALLER and psych consult pending
[2024-02-05] MEDS: PACERONE PO (20:45)
[2024-02-05] MEDS: STERILE WATER FOR INJECTION 10 ML IV (20:45)
[2024-02-05] MEDS: HEPARIN 5000 UNITS SC (20:45)
--- NOTE | 2024-02-05 22:16 | W.PN.UPDATE ---
Update Note
Progress Note Update
Patient stated in nursing depression screening she had thoughts of depression and harming herself in the last 2 weeks, prompting 1:1 observation orders. Patient was re-evaluated by me for depression, no active thoughts of suicide or current
depression. States that she is comfortable and little tired, ready to sleep tonight. No need for 1:1 at this time. Consider psych consultation in the future.
--- NOTE | 2024-02-05 23:35 | PTCARENOTE ---
systems reviewed, levo titrated per worklist, NS started, pt resting comfortably, denies pain, otherwise refer to documentation
[2024-02-06] VITALS (59 sets, daily range): BP systolic 70–169; BP diastolic 35–120; BMI 28.2
[2024-02-06] MEDS: LEVOPHED 250 IV ×5 (01:55→19:32)
[2024-02-06] MEDS: OFIRMEV 100 IV (02:28)
[2024-02-06 04:22] LABS: Hematocrit 36.6 % (37.0-47.0); Hemoglobin 11.9 g/dL (12.0-16.0); Mean Corp Hgb Conc. 32.5 g/dL (33.0-37.0); Mean Corpuscular Hgb 33.1 pg (27.0-31.0); Mean Corpuscular Volume 101.9 fL (81.0-99.0); Mean Platelet Volume 11.6 fL (7.4-10.4); Platelet Count 209 10^3/uL (130-400); Red Blood Cell Count 3.59 10^6/uL (4.20-5.40); Red Cell Dist. Width 14.8 % (11.5-14.5)
[2024-02-06 04:53] LABS: Vancomycin Random 13.4 ug/ml
--- NOTE | 2024-02-06 04:56 | PTCARENOTE ---
systems reviewed, normothermic from oral route felt warm to touch when turning, rectal 102.6, SAW OPERATOR notified ofirmiv given per order, ice packs applied to axillary and groin, pt refused MRSA hitting arm away, labs sent, other merritt refer to
documentation.
[2024-02-06 05:38] LABS: Blood Urea Nitrogen 26 mg/dl (7-17); Calcium 6.5 mg/dl (8.4-10.2); Carbon Dioxide 19 mmol/L (22-30); Chloride 103 mmol/L (98-107); Estimated Creatinine Clearance 24 ml/min; Glucose 278 mg/dl (70-99); Potassium 3.6 mmol/L (3.5-5.1); Sodium 132 mmol/L (135-145); eGFR 33.31
[2024-02-06] MEDS: DESENEX/MITRAZOL/ZEASORB 1 APPLIC TOPICAL ×2 (06:12→08:16)
[2024-02-06 08:15] LABS: Glucose - Point of Care 144 mg/dl (70-99)
[2024-02-06] MEDS: LIDOCAINE 4% PATCH 1 PATCH TOPICAL (08:15)
[2024-02-06] MEDS: MAXIPIME 1000 MG IV ×2 (08:15→19:33)
[2024-02-06] MEDS: DAKIN'S SOLUTION 0.125% 1/4 STRENGTH 1 ML TOPICAL (08:16)
[2024-02-06] MEDS: STERILE WATER FOR INJECTION 10 ML IV ×2 (08:16→19:33)
[2024-02-06] MEDS: HEPARIN 5000 UNITS SC ×2 (08:17→19:33)
[2024-02-06] MEDS: NSS 1000 IV ×2 (08:18→19:27)
--- NOTE | 2024-02-06 08:28 | W.PN.INTV ---
Today's Communication / Plan
Recommendations
Continue with vasopressors and start vasopressin
Maintain MAP >65
Continue with antibiotics
Consult urology + colorectal surgery
Goal BG 140�180
Encourage incentive spirometer
Follow-up blood + urine cultures
Follow-up stool cultures (collected 02/05/2024)
Patient remains critically ill; continue with ICU level of care
Guarded prognosis; patient is DNR/DNI
Assessment
-
Patient is an 88-year-old female with previous history of recurrent UTI (recently admitted and discharged on 01/20/2024), presenting from [facility] for fever. She was found to be hypoxemic on room air at 88%. She arrived with diarrhea in her
diaper. In the ER, was also notably hypotensive, placed on Levophed. She had stool coming out of her vagina. There is extreme excoriation in her pelvic area. She is admitted to ICU for septic shock.
Impression:
Septic shock due to UTI on vasopressors
Recurrent UTI, recent admission 01/20/2024
Diarrhea with stool incontinence
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
Acute kidney injury
Leukocytosis
Fever
Acute hypoxic respiratory failure
Conditions present prior to admission
Chronic sacral decubitus/lower extremity wound
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
Chronic diastolic congestive heart failure
Chronic kidney disease stage IIIb
Peripheral neuropathy
Pancreatic insufficiency
Essential hypertension
History of clostridium difficile infection
Gastro-esophageal disease
PAF
Tachy-janak syndrome s/p PPM
Diverticulosis with hx diverticulitis
Hip/knee replacements
Neurostimulator placement 1988
Appendectomy
Tonsillectomy
Plan
No current signs of metabolic encephalopathy or MS changes/following commands
Psychiatric history noted above including depression, psych consulted and recommendations appreciated
Denies pain at this time.
Pain/sedation: PRN
Hemodynamically unstable, requiring pressors.
Requiring pressors: levo @11; start vasopressin, PICC line inserted on 02/05/2024 into left AC vein
Cardiac history reviewed--AF/SSS s/p PPM, CHF
Prior ECHO from 12/09/2022 reviewed indicating preserved LV function (60-65%)
Hold home meds while hypotensive
Monitor on telemetry
Oxygen needs: O2 vikash 88% on RA on presentation, placed on low supplemental O2
Keep SpO2 >90-94%
Prior history of lung disease: none known, never smoker
CXR/CT reviewed indicating NAD
Would need outpatient w/u with PFTs to evaluate fully
For now, wean O2 as tolerated, nebs PRN
Patient seen by ENGINE DISPATCHER today and recommended soft/bite-size diet with thin liquids
Continue with aspiration precautions
Stool coming from vaginal vault, CT AP did not show any obvious fistula however study was extremely limited
Urology consulted and they recommended surgical consultation and to continue with IV antibiotics
Suspected fistula could be primary cause for recurrent UTI
Continue GERD meds
VLADISLAV present on CKD history
Void trials
Follow urine output, critical I/Os
Replete electrolytes as needed with K>4, Mg>2
Hold torsemine for now given she remains on vasopressors -> resume once HDN stable
Fever and increased WBC on presentation, suspect underlying sepsis
Started on empiric antibiotics ---> currently on cefepime/IV vancomycin
Cultures sent/pending
Blood 02/05/2024 - NGTD
Urine + 01/13/24 for E coli/pseudomonas
09/28/23 + Ecoli (barclay-sensitive)
09/02/23 + E coli (barclay-sensitive)
02/11/23 + E coli (barclay-sensitive)
Follow fever trend, WBC count
Pressure ulcer noted as well, wound care ordered
CBC stable, no signs of bleeding or coagulopathy.
DVT prophylaxis: HSQ
Can transfuse if indicated for Hb <7, plt < 20k
INR WNL
No prior h/o diabetes or thyroid disease
Monitor accuchecks PRN/SS coverage if needed
Goal BG 140-180
She is DNR, goals of care discussions are likely to be needed especially depending what surgery is recommending
Patient remains critically ill on vasopressors; continue with ICU level of care; we will follow
Diagnostic Data
Chest X-Ray: 02/05/24- No focal interstitial or airspace opacity to indicate pneumonia. Stable mild asymmetric elevation of the right diaphragm. No pneumothorax or congestive heart failure. No other significant change.
CT abdomen/pelvis without contrast 02/05/2024:
EXTREMELY LIMITED STUDY DUE to numerous factors, as detailed above in this patient in the setting of sepsis. Although no discrete focal abdominal/pelvic infectious process is identified, this cannot be excluded on the basis of this study.
1.4 cm indeterminate left adrenal nodule.
Bilateral lower lobe subsegmental atelectasis. Cannot exclude right lower lobe pneumonia
Prior cholecystectomy. Suspected biliary tract dilatation, unable to differentiate whether pathologic or the sequela of prior cholecystectomy. Suggest correlation with LFTs.
Echo: 12/09/22- Normal left ventricular size and systolic function. LV ejection fraction is 60-65% Diastolic function indeterminate. Mitral annular calcification.Mild mitral regurgitation. Aortic sclerosis without stenosis. Mild aortic
regurgitation. Mild tricuspid regurgitation. No prior study available for comparison.
Reports and relevant images were personally reviewed.
Critical care statement: A total of 38 minutes of critical care time was provided for this patient today. This includes management of unstable vital signs, evaluation of the patient at bedside, reviewing the patient's pertinent medical records
including radiographs, microbiology, laboratory evaluations, and discussion with primary team, consultants, pharmacy, nutrition, physical therapy, case management, charge nurse, critical care nursing, and respiratory therapy.
Subjective Dataa
Subjective Data
Date of Service:
Date of Service: February 06, 2024
Chief Complaint: Livestock Feeder Follow Up
Subjective:
Patient seen and evaluated this morning. Remains on Levophed at 11mcg/min this morning. BP 116/53, heart rate 71 and saturating 90% on 2 L/min. Febrile overnight to 102.6 �F, and febrile this morning to 100.6 �F. Still having stool coming from
vagina. Patient's son, Jason, at bedside and I answered all of her questions.
Review of Systems
General: Other (Negative unless mentioned above)
Objective Data
Data Reviewed
Vital Signs / I&O / Oxygen:
Vital Signs
Temp Pulse Resp BP Pulse Ox
100.6 F H 106 30 106/52 98
02/06/24 07:42 02/06/24 06:15 02/06/24 06:15 02/06/24 06:00 02/06/24 06:15
Intake and Output
02/05/24 02/06/24 02/07/24
06:59 06:59 06:59
Intake Total 2081.3 / 2260.1 357.6 / 357.6
Output Total 275 / 275 30 / 30
Balance 1806.3 / 1985.1 327.6 / 327.6
SaO2 98
Nasal Cannula flow liters per 2
minute
Physical Exam
General: Respiratory Distress (negative), Comfortable, Chills (negative) and Sweats (negative)
HEENT: Normocephalic and Anicteric
Cardiovascular: S1-S2, Murmur (SAMUEL heard across precordium) and Peripheral Edema (+2 lower extremity pitting edema bilaterally)
Respiratory: Wheeze (negative), Crackles (negative), Rhonchi (negative) and Non-Labored Respirations
GI: Soft, Non Distended, Non Tender and Normal Bowel Sounds
Neurology: Awake, Alert and Tremors (negative)
Skin: Warm, Dry, Cyanosis (negative) and Jaundice (negative)
Labs/Micro/Reports
Lab Data
02/06/24 04:01
Laboratory Results
02/05/24
16:38
PT 16.9 H
INR 1.35
APTT 33.1
Microbiology
02/05/24 08:58 Decubitis Ulcer Gram Stain - Preliminary
02/05/24 08:58 Nasal Swab Influenza Types A & B (ARACELIS) - Final
Negative for Influenza A & B, NAAT
Negative results must be combined with clinical observations
and patient history.
Nucleic Acid Amplification test (NAAT)performed on the
[employer] platform.
[2024-02-06] MEDS: DEMADEX 20 MG PO (08:32)
[2024-02-06] MEDS: ROXICODONE 5 MG PO (08:32)
[2024-02-06] MEDS: TOPAMAX 50 MG PO (08:33)
[2024-02-06] MEDS: DETROL LA 4 MG PO (08:33)
[2024-02-06] MEDS: PACERONE 200 MG PO (08:35)
[2024-02-06] MEDS: CALCIUM GLUCONATE 130 MG IV (08:46)
--- NOTE | 2024-02-06 09:22 | PHA.VAN.FU ---
Vancomycin Assessment / Plan
- Assessment
Renal Function: SCR Decreasing
WBC's are: Trending Up
Concomitant Antimicrobials: cefepime
- Assessment - Therapeutic Drug Monitoring
Random Level: 13.4 - drawn ~17.5H after end of 1500mg loading dose
- Dosing Plan
Dosing by Level: Re-dose today (Vanc 750mg)
- Monitoring Plan
Random Level: 02/06 0600
- Follow Up
Pharmacy will continue to follow.
Vancomycin Follow UP
- -
Patient Age: 88
Patient Sex: Female
Vancomycin Day #: 2
Indication: Skin And Soft Tissue
Requesting Provider: Dr. Soriano
Pertinent Antimicrobial Allergies:
sulfa=swelling
erythromycin=vomiting
Height / Weight:
Height 5 ft 2 in
Actual Weight 69.9 kg
IBW in k.1
Pertinent Past Medical History: CKD
- Vital Signs / Lab Results
Temp Pulse Resp BP Pulse Ox
100.6 F H 61 21 133/96 99
02/06/24 07:42 02/06/24 09:00 02/06/24 09:00 02/06/24 09:00 02/06/24 07:15
Lab Results - Hematology
02/05/24 02/06/24
08:45 04:01
WBC 13.6 H 27.0 H
Lab Results - Chemistry
02/05/24 02/06/24
08:45 04:01
BUN 30 H 26 H
Creatinine 1.8 H 1.5 H
Estimated Creat Clear 24
Albumin 2.7 L
02/05/24 02/05/24
08:45 12:45
Lactic Acid 1.7 Cancelled
Lab Results - Urine
02/05/24 02/05/24
09:39 15:13
Urine Nitrite (Reflex) Negative Negative
Leukocyte Esterase Rfl Negative 2+ A
Ur Squamous Epith Cells 0-2 3-5
Microbiology Results
02/05/24 08:58 Wound Culture - Preliminary
Decubitis Ulcer Gram Stain - Preliminary
02/05/24 15:13 C. difficile GDH Antigen & Toxins - Final
Feces/Stool C. difficile antigen positive, toxin negative.
Clostridium difficile present, but toxin not detected.
Patient may be a carrier, colonized with nontoxinogenic
strain or the level of toxin in sample is below detection
limits. This information should be used in conjunction with
the patient's clinical history.
02/05/24 08:45 Blood Culture - Preliminary
Blood/Venous No Growth in 24 hours- Final report to follow
02/05/24 08:58 Influenza Types A & B (ARACELIS) - Final
Nasal Swab Negative for Influenza A & B, NAAT
Negative results must be combined with clinical observations
and patient history.
Nucleic Acid Amplification test (NAAT)performed on the
[employer] platform.
Therapeutic Drug Monitoring
Random Vancomycin 13.4 ug/ml 02/06/24 04:01
[2024-02-06] MEDS: KCL 20 MEQ PO (10:12)
--- NOTE | 2024-02-06 10:22 | CS.PSYCHR ---
Consult Summary - Psychiatry
-
Pt is an 88 yo female recently hospitalized at from 01/12 to 01/18/2024 for a UTI, had mild encephalopathy. Since discharge to [facility], pt remained ill, had increased weakness/decreased ability to walk. Psychiatry asked to see after pt
endorsed SI. Pt denied any active plan or intent. Pt seen with son present, who is very supportive. Pt acknowledges passive SI a couple times recently due to repeated hospitalizations/illness; denies any SI now. Pt feels down, son reports she
has been depressed with poor appetite, significant weight loss. Pt states she has 'no desire for food.' She is on amitriptyline 20 mg HS, has been on low-dose antidepressant when in rehab.
PMH: Hypertension, paroxysmal atrial fibrillation, chronic CHF with preserved ejection fraction, pacemaker, peripheral neuropathy, chronic interstitial cystitis, anemia, CKD, pancreatic insufficiency, chronic sacral decubitus wound,
osteoporosis/osteoarthritis, colovaginal fistula leaking stool
Psych Hx: unspecified depression, anxiety; has been prescribed low dose antidepressant- most recently on amitriptyline 20 mg HS. Since last admission Dec 2023, pt has been started on Topamax 50 mg QD- per son for hx of tremor
MSE: alert, grossly oriented with sensorium intact. Affect/mood dysphoric/depressed. Denies current suicidal ideation, reports recent moments of passive SI. Speech soft/coherent, thought goal-directed. No signs of psychosis. Insight fair
Imp: Unspecified depression, appears situational related to illness/pain/repeated admissions
Pt has had some passive SI at times; denies any SI currently, does not require 1:1 supervision
Poor appetite and recent weight loss could be in part due to Topamax, which often suppresses appetite
Rec: Would continue Amitriptyline- can help with depression, anxiety, pain mgt
Would consider stopping Topamax/switching to an alternative if tremor becomes an issue
will follow
--- NOTE | 2024-02-06 10:30 | PTCARENOTE ---
Pt AAOx2. Appears depressed. Poor appetite. Requires encouragement to take her pills. States, 'I just want to go home'. Son at bedside. Weaning Levophed.
--- NOTE | 2024-02-06 11:18 | PTOTSP ---
Dysphagia Evaluation
Patient presents with signs concerning for mild oral/pharyngeal dysphagia and possible aspiration with thin liquids via straw. Family reports chronic dysphagia. History of GERD noted. CT Abdomen 02/04 - cannot rule out RLL PNA.
Recommend:
1. IDDSI Level 6 Soft/Bite Sized, Thin Liquids
2. Medications: whole in puree
3. Full supervision and assist as needed
4. Strategies: small single sips via cup, avoid straw, slow rate, liquid wash as needed to assist with oral clearance, remain upright for at least 30 minutes as a reflux precaution given hx GERD
5. Oral care 2-3x daily
6. Consider video swallow study to objectively assess swallowing
--- NOTE | 2024-02-06 11:24 | WOUNDNOTE ---
L ANTERIOR THIGH AND GROIN SKIN FOLDS
--- NOTE | 2024-02-06 11:25 | WOUNDNOTE ---
L 3RD AND 4TH TOE
--- NOTE | 2024-02-06 11:26 | WOUNDNOTE ---
WON RN note: Patient admitted with septic shock
See H&P for complete history. From [facility].
PMH: A fib, CHF, neuropathy, pacer, interstitial cystitis, anemia, anxiety, CKD, pacer, pancreatic insufficiency. R leg fracture, DTI on posterior lower leg and stage 3 PI on R heel. Sacral PI.
Wound Location and type/assessment: Patient known to service, last seen 01/13/24 for multiple PI on sacrum and extremities. R posterior calf DTI now appears to be stage 3 PI, much improved. R heel stage 3 PI healed, now with same red discoloration.
Both wounds on R leg were from a brace she used, due to an old leg fracture. L lateral heel with healing dry blood blister, smaller and more defined. With assistance from LORETTA Gleason turned patient to sides, patient too weak to assist.
Sacral/buttocks/madalyn rectal area evolving DTI, dark maroon base and surrounding skin. Periwound with shallow ulcers pink/yellow suspect from loose stool. Continues to incontinent of stool. Chronic Moseley in use, has an ulcer on L posterior thigh,
suspected from Moseley tubing. 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 MASD in groin skin folds and under L breast, fungal powder in use. L anterior groin with linear dark maroon line,
suspect DTI. Patient was using depends prior to admission. L 5th toe nail dry scab, no drainage. L 3rd toe with shallow dry ulcer suspect abrasion from shoes, no drainage.
Appetite: Poor. Dietary on consult.
Pressure redistribution devices in place: Air mattress, continue if transferred to floor. Offload heels with pillow under calves, air cushion on pillow if needed.
Plan: Dakin's wtd dressing already on order for Sacral ulcer, Heels with foams change q 2-3 days. R posterior leg with Xeroform and dry dressing. L posterior thigh Exuderm thin, Groins and L breast skin folds fungal powder applied. Despite
preventative measures wound on sacrum may become worse and develop other PI's, due to co morbidities. Will confirm orders with hospitalist, update care plan and made nurse aware of wound care. Supplies in rm.
Case Management: Recommend air mattress and offloading cushion at SNF.
Follow up at Wound care center upon discharge.
--- NOTE | 2024-02-06 12:31 | CM ---
CM following re: discharge planning.
Discussed in rounds, reviewed pt's chart, met with pt and pt's son Josh at bedside.
Pt denies SI today and pt denies verbalizing SI thoughts yesterday. Psychiatry consult noted - pt denied SI and pt does not need 1:1
CM has a long discussions with pt and her son regarding next level of are. Pt expressed her desire to return back to [facility] and pt expressed her agreement to return back to [facility] for a short term rehab if needed. Pt's son
encouraged the pt to get stronger at [facility] short term rehab before returning to [facility].
A referral to [facility] made.
D/C plan: [facility] to continue on skilled services with further plan to return back to [facility].
CM will follow with discharge plan updates as hospitalization progresses
--- NOTE | 2024-02-06 12:43 | PTCARENOTE ---
Continue to wean levophed.
Pt woke up confused and pulled out an IV. Easy to reorient to place and situation.
Pt refusing to eat. Reported nausea after taking pills. Ordered nonpar meals. No BM so far this shift.
Moseley now draining clear yellow with sediment. Good urine output. See I&Os
All other assessments unchanged.
[2024-02-06] MEDS: VANCOCIN 150 IV (12:57)
[2024-02-06 13:44] LABS: Blood Urea Nitrogen 28 mg/dl (7-17); Calcium 7.9 mg/dl (8.4-10.2); Carbon Dioxide 18 mmol/L (22-30); Chloride 103 mmol/L (98-107); Estimated Creatinine Clearance 20 ml/min; Glucose 131 mg/dl (70-99); Potassium 3.7 mmol/L (3.5-5.1); Sodium 134 mmol/L (135-145); eGFR 26.77
--- NOTE | 2024-02-06 14:33 | CON.CRS ---
Consultation
-
Date/Time Consultation Requested: 02/06/2024, 14:10
Date/Time Consultation Performed: 02/06/2024, 14:50
Requesting Provider: Dodie Lobo MD
Performing Provider: Kun Feldman MD
Reason for Consultation: stool in vagina
Medical History
-
Chief Complaint: stool in vagina
History of Present Illness:
88-year-old female with previous histories of recurrent UTIs, most recently here from 01/13/2024 to 01/18/2024, presents from [facility] due to a fever. According to records, she was hypoxic on room air at 80%. She was hypotensive on arrival to the
ER and placed on Levophed. Apparently there was also stool coming out of her vagina and excoriation found in her pelvic area. Her initial white count was 13.6 and is 27.0 today. She arrived to the ER with a 102.6 fever. Currently she is afebrile.
She remains on pressors. Given stool found in her vaginal area, a CT abdomen pelvis without contrast was performed. This was an extremely limited study due to lack of contrast. There was no discrete focal abnormality in the pelvis or abdominal
area. There was bilateral lower lobe segmental atelectasis. Cannot exclude right lower pneumonia. She is currently on Maxipime and Vanco. She remains on 2 pressors. Normally she is on Eliquis due to atrial fibrillation but this is on hold. She
has had prior attacks of diverticulitis in the past (no surgery - hospitalized once on antibiotics). Given stool in her vagina, we have been consulted for further surgical recommendations.
Past Medical History
Past Medical History: CHF, GERD, HTN and Other (Paroxysmal atrial fibrillation, heart failure, GERD, chronic kidney disease stage III, hyperlipidemia, history of sick sinus syndrome, Chronic sacral decubitus wound, lower extremity wound, right upper
and left upper DVT, CHF, peripheral neuropathy, pancreatic insufficieny, h/o c.diff)
Past Surgical History: Gynecological (hysterectomy) and Other (Permanent pacemaker, hip and knee replacements, neurostimulator placement 1988, appendectomy, tonsillectomy, 3 vaginal births )
Social History
Tobacco: Non-Smoker
Alcohol: None
Drug: None
Family History
Family History: Reviewed & Not Pertinent
Allergies / Home Medications
Allergy/AdvReac Type Severity Reaction Status Date / Time
aspirin [From Percodan] Allergy Nausea / Verified 02/05/24 10:31
Vomiting
erythromycin base Allergy Vomiting Verified 02/05/24 10:31
oxycodone [From Percodan] Allergy Vomiting Verified 02/05/24 10:31
phenobarbital Allergy Rash Verified 02/05/24 10:31
Sulfa (Sulfonamide Allergy Swelling Verified 02/05/24 10:31
Antibiotics)
zolpidem [From Ambien] Allergy Unknown Verified 02/05/24 10:31
�Medication �Instructions �Recorded �Confirmed �Type
Lactobacillus rhamnosus GG 10 1 cap PO DAILY Supplement 12/13/22 02/05/24 History
billion cell capsule (Culturelle)
amiodarone 200 mg tablet 200 mg PO BID Arrhythmia 12/13/22 02/05/24 History
calcitriol 0.5 mcg capsule 0.5 mcg PO DAILY Supplement 12/13/22 02/05/24 History
estradiol 0.01% (0.1 mg/gram) 1 g vaginal DAILYPRN PRN estrogen 12/13/22 02/05/24 History
vaginal cream supplement
foymls-uuqfbbmy-zvcplaf 6,000 cap PO TID Gastrointestinal 12/13/22 02/05/24 History
6,000-19,000-30,000 unit Issue
capsule,delayed rel (Creon)
acetaminophen 500 mg tablet 1,000 mg PO Q6HPRN PRN mild pain 12/17/23 02/05/24 History
(Tylenol Extra Strength)
amitriptyline 10 mg tablet 20 mg PO HS Neurological Condition 12/17/23 02/05/24 History
melatonin 5 mg tablet 5 mg PO HS Sleep 12/17/23 02/05/24 History
omeprazole 20 mg capsule,delayed 20 mg PO DAILY Gastrointestinal 12/17/23 02/05/24 History
release Issue
potassium chloride 20 mEq 20 meq PO DAILY Supplement 12/17/23 02/05/24 History
tablet,extended release
topiramate 50 mg tablet 50 mg PO DAILY Neurological 12/17/23 02/05/24 History
Condition
vibegron 75 mg tablet (Gemtesa) 75 mg PO DAILY Urinary Issue 12/17/23 02/05/24 History
acetaminophen 325 mg tablet 650 mg PO Q4HPRN PRN fever >100 01/13/24 02/05/24 History
docusate sodium 100 mg capsule 100 mg PO BID Supplement 01/13/24 02/05/24 History
ferrous sulfate 325 mg (65 mg 325 mg PO DAILY Supplement 01/13/24 02/05/24 History
iron) tablet
lidocaine 5 % topical patch 1 patch topical DAILY right thigh 01/13/24 02/05/24 History
torsemide 20 mg tablet 20 mg PO DAILY Fluid 01/13/24 02/05/24 History
Retention/Swelling
metoprolol tartrate 25 mg tablet 25 mg PO BID Afib #60 tabs 01/18/24 02/05/24 Rx
alprazolam 0.25 mg tablet (Xanax) 0.25 mg PO DAILYPRN PRN anxiety 02/05/24 02/05/24 History
bisacodyl 10 mg rectal suppository 10 mg AR DAILYPRN PRN if no bm on 02/05/24 02/05/24 History
(Dulcolax (bisacodyl)) 5th day and if nothing aftr mom
ipratropium 0.5 mg-albuterol 3 mg 3 ml inhalation R Q6HPRN PRN sob 02/05/24 02/05/24 History
(2.5 mg base)/3 mL nebulization
soln
magnesium hydroxide 400 mg/5 mL 2,400 mg PO DAILYPRN PRN if no bm 02/05/24 02/05/24 History
oral suspension (Milk of Magnesia) on 4th day
mineral oil 1 applic topical DAILY both feet 02/05/24 02/05/24 History
ondansetron HCl 4 mg tablet 4 mg PO Q8HPRN PRN nausea 02/05/24 02/05/24 History
oxycodone 5 mg tablet 5 mg PO TID Pain 02/05/24 02/05/24 History
sodium hypochlorite 0.125 % 1 applic topical DAILY left 02/05/24 02/05/24 History
solution (Dakin's Solution) buttocks
sodium phosphates 19 gram-7 118 ml AR DAILYPRN PRN if no bm 02/05/24 02/05/24 History
gram/118 mL enema (Fleet Enema) aon 6th day
zinc sulfate 220 mg capsule 220 mg PO DAILY Supplement 02/05/24 02/05/24 History
Review of Systems
-
History Source: Patient, Transfer Record and Physician
Constitutional: Fever
: Discharge
A 10 point review of systems was completed, and was negative except as per HPI.
Physical Exam
Vital Signs
Temp 98.2 F 02/06/24 11:16
Pulse 60 02/06/24 13:15
Resp Rate 23 02/06/24 13:15
Blood pressure 117/64 02/06/24 13:00
SaO2 95 02/06/24 13:15
02/05/24 02/06/24 02/07/24
06:59 06:59 06:59
Actual Weight 69.9 kg
Body Mass Index (BMI) 28.2
Lab Results / Allergies
02/06/24 04:01
02/06/24 12:34
WBC 27.0 10^3/uL (4.8-10.8) H 02/06/24 04:01
Hgb 11.9 g/dL (12.0-16.0) L 02/06/24 04:01
Hct 36.6 % (37.0-47.0) L 02/06/24 04:01
Plt Count 209 10^3/uL (130-400) 02/06/24 04:01
Abs Immat Gran (auto) 0.1 10^3/uL (0-0.05) H 02/05/24 08:45
Neutrophils % 91.0 % (42.2-75.2) H 02/05/24 08:45
Allergy/AdvReac Type Severity Reaction Status Date / Time
aspirin [From Percodan] Allergy Nausea / Verified 02/05/24 10:31
Vomiting
erythromycin base Allergy Vomiting Verified 02/05/24 10:31
oxycodone [From Percodan] Allergy Vomiting Verified 02/05/24 10:31
phenobarbital Allergy Rash Verified 02/05/24 10:31
Sulfa (Sulfonamide Allergy Swelling Verified 02/05/24 10:31
Antibiotics)
zolpidem [From Ambien] Allergy Unknown Verified 02/05/24 10:31
Physical Exam
General: Well Developed and No Apparent Distress
GI: Soft, Non Tender and Non Distended
Data Reviewed
-
CT Scan: Image Personally Visualized and interpreted, Report Reviewed by me and Discussed with Patient
Labs: Labs Reviewed by me, Discussed with Physician and Discussed with Patient
Old Records: Reviewed
Assessment / Plan
-
Assessment: 88-year-old female with chronic UTIs, found to be in septic shock most likely due to urinary source, with stool in her vaginal vault.
Plan:
-Continue IV antibiotics
-Will eventually need a contrast imaging study to determine if there is a fistula present
-Agree with holding Eliquis
-I have asked RN to note any more stool in vaginal area
-Will follow, will discuss case with Dr. Feldman
--- NOTE | 2024-02-06 15:20 | W.PN.HOSP.TC ---
Today's Communication/Plan
-
Broad-spectrum antibiotics
IV fluids
IV pressors
Hold antihypertensives and diuretics.
Urology/colorectal surgery evaluation for possible fistula.
Hold anticoagulation.
Total Critical Care Time__45___ minutes. I was immediately available to the patient and staff. I personally examined, reviewed labs, diagnostic images/reports, interpretations, treatment plans, discussed patient care with other providers and
family or caregivers (if patient is unable to make decisions), entered orders as appropriate and documented the medical record.
Assessment / Plan
Assessment / Plan
Impression:
Septic shock
Recurrent urinary tract infection/CAUTI
-Indwelling Moseley catheter
Diarrhea on presentation with stool incontinence
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
Acute kidney injury.
Toxic metabolic encephalopathy secondary to infection
Acute hypoxic respiratory insufficiency
Other conditions:
Chronic sacral decubital ulcers
Chronic lower extremity pressure wounds.
Chronic diastolic CHF
CKD stage IIIb.
Essential hypertension.
Paroxysmal A-fib.
Tachybradycardia syndrome status post PPM.
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
History of C. difficile infection
Pancreatic insufficiency
GERD
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
Surgical history including appendectomy, tonsillectomy, neurostimulator placement 1988
Plan:
Sepsis with septic shock requiring vasopressors secondary to recurrent catheter associated urinary tract infection
Indwelling Moseley catheter
Reported stool in vaginal vault with concern for enterovaginal fistula
CT scan of the abdomen and pelvis without contrast unrevealing
Blood cultures pending
Urine cultures pending
Continue broad-spectrum antibiotics: Vancomycin/cefepime.
Continue isotonic IV fluids.
Remains on Levophed with attempt to wean as blood pressure tolerates.
Urology, colorectal surgery consultation to evaluate for enterovaginal fistula. Eventually will need contrast study.
VLADISLAV on CKD stage IIIb with baseline creatinine 1.3�1.6
This is secondary to prerenal stimuli with sepsis and hypotension
Moseley catheter is in place baseline continue IV fluids and Levophed as above.
Follow daily BMP.
Hold torsemide
Toxic metabolic encephalopathy secondary to acute infection and sepsis
Pathology: Presentation
Mental status improved and back to baseline.
Acute hypoxic respiratory insufficiency
No active respiratory complaints.
Stable oxygenation.
Chest x-ray with bibasilar atelectasis.
Continue aspiration precautions.
Chronic CHF preserved EF.
Echo 12/27 with LVEF 60 to 65%. No significant valvular abnormalities
Given hypotension, hold torsemide and monitor volume status closely.
Paroxysmal A-fib.
Tachybradycardia syndrome status post PPM.
Preadmission regimen including amiodarone, metoprolol
Anticoagulation with Eliquis.
Continue amiodarone
Hold metoprolol due to hypotension.
Hold Eliquis with possible workup for enterovaginal fistula
Neuropsychiatric: Dementia likely vascular/senile type, neuropathy.
Patient's son reports significant declining including mental status, appetite, performance baseline
Stop Topamax (likely started for neuropathy, although potentially decreasing appetite)
Continue amitriptyline. Continue Xanax, oxycodone as needed monitor for oversedation
02/05 goals of care discussion with patient's son.
CODE STATUS DNR.
Given overall declining, recurrent UTI, ambulatory dysfunction, pressure wounds and overall failure to thrive option of palliative care with transition to hospice brought up for consideration.
Anticipated Discharge: > 48 hours
Subjective/Interval History
-
Date of Service: February 06, 2024
Objective Data
-
Labs:
Laboratory Results
02/06/24 02/06/24
04:01 12:34
WBC 27.0 H
Hgb 11.9 L
Hct 36.6 L
Plt Count 209
Sodium 132 L 134 L
Potassium 3.6 3.7
Chloride 103 103
Carbon Dioxide 19 L 18 L
BUN 26 H 28 H
Creatinine 1.5 H 1.8 H
Glucose 278 H 131 H
Calcium 6.5 L* D 7.9 L
Vital Signs:
Vital Signs
Temp Pulse Resp BP Pulse Ox
99.1 F 60 23 117/64 95
02/06/24 15:03 02/06/24 13:15 02/06/24 13:15 02/06/24 13:00 02/06/24 13:15
I&O
02/05/24 02/06/24 02/07/24
06:59 06:59 06:59
Intake Total 2081.3 / 2260.1 1366.4 / 1366.4
Output Total 275 / 275 805 / 805
Balance 1806.3 / 1985.1 561.4 / 561.4
Physical Exam
-
General: Well Developed, Well Nourished, Fever and Appears Chronically Ill
HEENT: Normocephalic, Atraumatic and Moist Mucous Membranes
Respiratory: Clear to Auscultation (on shallow respirations)
Cardiac: Regular Rhythm and S1/S2
GI: Soft, Nontender and Nondistended
Genito-urinary: Moseley
Neuro: Awake, Alert and Oriented
[2024-02-06] MEDS: ROXICODONE PO ×2 (16:09→21:27)
[2024-02-06] MEDS: PACERONE PO (19:40)
--- NOTE | 2024-02-06 19:49 | PTCARENOTE ---
Received pt via handoff. Pt AAOx3 but very emotional. Sinus tach AV paced. +2 Edema in extremities. Afebrile. 93% on RA, lung sounds diminished at bases. Hypoactive bowel sounds in all 4Q. Moseley catheter in place draining clear urine. See flowsheet
for wounds. Levo and NS running see flowsheet. Son at bedside. Pt coughing excessively when trying to eat jello, [employer] Neal made aware so will be NPO for PO medications. Call pike at bedside.
[2024-02-06] MEDS: PITRESSIN 100 IV (20:51)
[2024-02-06] MEDS: DILAUDID 0.5 MG IV (21:11)
[2024-02-07] VITALS (43 sets, daily range): BP systolic 80–132; BP diastolic 27–99; BMI 28.2
--- NOTE | 2024-02-07 | PTCARENOTE ---
All systems reassessed, labs drawn. Call pike at bedside.
[2024-02-07] MEDS: NSS 1000 IV ×2 (04:05→16:03)
[2024-02-07] MEDS: DILAUDID 0.5 MG IV ×3 (04:05→18:04)
[2024-02-07] MEDS: LEVOPHED 250 IV ×2 (04:06→20:21)
--- NOTE | 2024-02-07 04:54 | PTCARENOTE ---
All systems reassessed, pt had an episode of diarrhea, hygiene performed. Call pike at bedside.
[2024-02-07 04:59] LABS: Vancomycin Random 17.3 ug/ml
[2024-02-07 05:01] LABS: % Basophils 0.2 % (0-2); % Eosinophils 0.2 % (0-6); % Immature Granulocytes 1.1 % (0-0.5); % Lymphocytes 3.3 % (20.5-51.1); % Monocytes 7.4 % (1.7-9.3); % Neutrophils 87.8 % (42.2-75.2); Absolute Immature Granulocytes 0.2 10^3/uL (0-0.05); Absolute Lymphocytes 0.6 10^3/uL (1.2-3.4); Absolute Monocytes 1.3 10^3/uL (0.1-0.6); Absolute Neutrophils 15.3 10^3/uL (1.4-6.5); Hematocrit 35.5 % (37.0-47.0); Hemoglobin 11.8 g/dL (12.0-16.0); Mean Corp Hgb Conc. 33.2 g/dL (33.0-37.0); Mean Corpuscular Hgb 33.1 pg (27.0-31.0); Mean Corpuscular Volume 99.4 fL (81.0-99.0); Mean Platelet Volume 11.8 fL (7.4-10.4); Nucleated Red Blood Cells % 0.1 %; Platelet Count 122 10^3/uL (130-400); Red Blood Cell Count 3.57 10^6/uL (4.20-5.40); Red Cell Dist. Width 14.8 % (11.5-14.5); White Blood Cell Count 17.4 10^3/uL (4.8-10.8)
[2024-02-07 06:20] LABS: Blood Urea Nitrogen 27 mg/dl (7-17); Calcium 6.7 mg/dl (8.4-10.2); Carbon Dioxide 20 mmol/L (22-30); Chloride 105 mmol/L (98-107); Estimated Creatinine Clearance 27 ml/min; Glucose 189 mg/dl (70-99); Magnesium 0.9 mg/dl (1.6-2.3); Potassium 3.3 mmol/L (3.5-5.1); Sodium 132 mmol/L (135-145); eGFR 39.55
[2024-02-07] MEDS: MAGNESIUM SULFATE 100 IV (06:37)
[2024-02-07] MEDS: STERILE WATER FOR INJECTION 10 ML IV (09:41)
[2024-02-07] MEDS: MAXIPIME 1000 MG IV (09:41)
[2024-02-07] MEDS: CALCIUM GLUCONATE 130 MG IV (09:42)
[2024-02-07] MEDS: HEPARIN SC ×2 (09:43→09:52)
[2024-02-07] MEDS: DAKIN'S SOLUTION 0.125% 1/4 STRENGTH 1 ML TOPICAL (09:43)
[2024-02-07] MEDS: PITRESSIN 100 IV ×2 (09:45→18:08)
[2024-02-07] MEDS: LIDOCAINE 4% PATCH 1 PATCH TOPICAL (09:45)
[2024-02-07] MEDS: HYDROPHOR 1 APPLIC TOPICAL (09:47)
[2024-02-07] MEDS: KCL PO (09:48)
[2024-02-07] MEDS: ROXICODONE PO ×2 (09:48→21:22)
[2024-02-07] MEDS: PACERONE PO ×2 (09:48→21:20)
[2024-02-07] MEDS: DETROL LA PO (09:48)
--- NOTE | 2024-02-07 10:33 | PHA.VAN.FU ---
Vancomycin Assessment / Plan
- Assessment
Renal Function: SCR Decreasing
WBC's are: Trending Down
In the past 24 hrs, patient has been: Afebrile
Concomitant Antimicrobials: Cefepime
- Assessment - Therapeutic Drug Monitoring
Random Level: 17.3 - drawn ~15.5H after previous dose of 750mg
- Dosing Plan
Dosing by Level: Re-dose today (Vanc 500mg)
- Monitoring Plan
Random Level: 02/07 06
- Follow Up
Pharmacy will continue to follow.
Vancomycin Follow UP
- -
Patient Age: 88
Patient Sex: Female
Vancomycin Day #: 3
Indication: Skin And Soft Tissue
Requesting Provider: Dr. Soriano
Pertinent Antimicrobial Allergies:
sulfa=swelling
erythromycin=vomiting
Height / Weight:
Height 5 ft 2 in
Actual Weight 69.9 kg
IBW in k.1
Pertinent Past Medical History: CKD
- Vital Signs / Lab Results
Temp Pulse Resp BP Pulse Ox
98.0 F 71 24 118/45 90
02/07/24 08:04 02/07/24 05:30 02/07/24 05:30 02/07/24 05:30 02/07/24 05:30
Lab Results - Hematology
02/05/24 02/06/24 02/07/24
08:45 04:01 04:27
WBC 13.6 H 27.0 H 17.4 H
Lab Results - Chemistry
02/05/24 02/06/24 02/06/24
08:45 04:01 12:34
BUN 30 H 26 H 28 H
Creatinine 1.8 H 1.5 H 1.8 H
Estimated Creat Clear 24 20
Albumin 2.7 L
02/07/24 02/07/24
04:27 05:17
BUN Cancelled 27 H
Creatinine Cancelled 1.3 H
Estimated Creat Clear Cancelled 27
Albumin
02/05/24 02/05/24
08:45 12:45
Lactic Acid 1.7 Cancelled
Lab Results - Urine
02/05/24
15:13
Urine Nitrite (Reflex) Negative
Leukocyte Esterase Rfl 2+ A
Ur Squamous Epith Cells 3-5
Microbiology Results
02/05/24 09:39 Blood Culture - Preliminary
Blood/Venous No Growth in 48 hours- Final report to follow
02/05/24 15:13 Urine Culture - Preliminary
Urine Enterococcus species
Shala albicans
02/05/24 08:45 Blood Culture - Preliminary
Blood/Venous No Growth in 48 hours- Final report to follow
02/05/24 08:58 Wound Culture - Preliminary
Decubitis Ulcer Staphylococcus aureus
Enterococcus species
Gram Stain - Preliminary
02/05/24 15:13 C. difficile GDH Antigen & Toxins - Final
Feces/Stool C. difficile antigen positive, toxin negative.
Clostridium difficile present, but toxin not detected.
Patient may be a carrier, colonized with nontoxinogenic
strain or the level of toxin in sample is below detection
limits. This information should be used in conjunction with
the patient's clinical history.
02/05/24 08:58 Influenza Types A & B (ARACELIS) - Final
Nasal Swab Negative for Influenza A & B, NAAT
Negative results must be combined with clinical observations
and patient history.
Nucleic Acid Amplification test (NAAT)performed on the
[employer] platform.
Therapeutic Drug Monitoring
Random Vancomycin 17.3 ug/ml 02/07/24 04:27
[2024-02-07] MEDS: ROXICODONE 5 MG PO (11:31)
--- NOTE | 2024-02-07 12:00 | PTCARENOTE ---
On Vasopressin and Levophed.
Pt tearful at time. Refusing PO meds and all food. notified. Pt's son notified.
All assessments unchanged.
[2024-02-07] MEDS: KCL 270 MEQ IV (12:32)
--- NOTE | 2024-02-07 12:51 | CM ---
CM following re: discharge planning.
Discussed in rounds, reviewed pt's chart, met with pt and pt's son Josh at bedside. Per MD, palliative care with transition to hospice discussed with the pt and her son for consideration. Continue supportive care.
PT and OT evaluations pending.
D/C plan: [facility] when medically stable.
CM will follow with discharge plan updates as hospitalization progresses
--- NOTE | 2024-02-07 13:08 | W.PN.INTV ---
Today's Communication / Plan
Recommendations
Wean O2 and pressors as able
Continue anti-biotics
Consider palliative care consult
SEMICONDUCTORS WAFER BREAKER appreciated
Assessment
-
Patient is an 88-year-old female with previous history of recurrent UTI (recently admitted and discharged on 01/20/2024), presenting from [facility] for fever. She was found to be hypoxemic on room air at 88%. She arrived with diarrhea in her
diaper. In the ER, was also notably hypotensive, placed on Levophed. She had stool coming out of her vagina. There is extreme excoriation in her pelvic area. She is admitted to ICU for septic shock.
Conditions prior to admission:
Chronic sacral decubitus/lower extremity wound
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
Chronic diastolic congestive heart failure
Chronic kidney disease stage IIIb
Peripheral neuropathy
Pancreatic insufficiency
Essential hypertension
History of clostridium difficile infection
Gastro-esophageal disease
PAF
Tachy-janak syndrome s/p PPM
Diverticulosis with hx diverticulitis
Hip/knee replacements
Neurostimulator placement 1988
Appendectomy
Tonsillectomy
Impression:
Septic shock due to UTI vs sacral wound on vasopressors
Recurrent UTI, recent admission 01/20/2024
Toxic metabolic encephalopathy
Diarrhea with stool incontinence
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
VLADISLAV on CKD stage 3b
Leukocytosis
Fever
Acute hypoxic respiratory failure
Plan
Neurologic:
-Toxic metabolic encephalopathy
-History of depression
- no current signs of metabolic encephalopathy or MS changes/following commands - metabolic encephalopathy resolved
-Psychiatry consulted after pt mentioned wanting to harm herself - when asked again later denied suicidal ideation
-Psychiatry recommended continue home amitriptyline, no 1 to 1 observation needed, likely situational related to illness/pain/repeated admissions
-Pain/sedation - home oxy 5 TID and PRN alprazolam 0.25, acetaminophen 650, Dilaudid 0.5
Respiratory:
-Acute hypoxic respiratory failure
-Keep SpO2 >90-94%
-Currently on 2L O2 - wean O2 as able
-No hx prior lung dz, non-smoker
-Chest xray unremarkable for infx
-Duonebs PRN if bronchospastic
Cardiovascular
-Septic shock secondary to UTI vs sacral wound requiring pressors
-Hemodynamically unstable currently on Levo 8, Vasopressin 0.04 - wean as able
-PICC line inserted 02/05/2024
-MAP goal >65
-Hx PAF/SSS s/p pacemaker
-Continue home amio 200
-monitor on Tele
-Hx HFpEF and HTN
-last echo 12/09/2022 LVEF 60-65%
-HTN meds on hold while hypotensive
-Follow I&O and daily weights
GI:
-Soft and bite size diet with thin liquids per speech therapy
-Currently refusing all food, liquid and PO meds
-Aspiration precautions
-Stool from vaginal vault
-CT AP no obvious fistula although study extremely limited with no contrast
-Colorectal evaluated - stated pt and family were not interested in surgical intervention or colonoscopy at this time - recommended stenographer secretary consult
-Hx diverticulitis which could have pre-disposed pt to fistula formation
-Suspect fistula could be source of recurrent UTI
-As pt and family not interested in intervention at this time and pt refusing PO intake, palliative care consult mentioned per primary team
-Hx GERD
-Cont pantoprazole
-Hx constipation on home oxycodone 5mg TID
-Colace 100 BID - hold with current diarrhea
Renal:
-VLADISLAV on CKD stage 3b
-Hypocalcemia
-Hypokalemia
-Hypomagnesemia
-Today Cr 1.3 - resolved
-Hold torsemide while hypotensive
-Home KCl 20meq and calcitriol continue
-Replace electrolytes as needed
-Follow urine output
ID:
-Septic shock secondary to UTI vs sacral wound requiring pressors
-WBC 27.0 -> 17.4 today, afebrile last 24 hr
-Sacral wound culture staph aureus and enterococcus (+)
-Urine culture enterococcus and candid albicans (+)
-Blood cultures and stool cultures pending
-Continue cefepime and vancomycin IV - day 3
-Wound care following for ulcer
-Follow WBC and fever
Hemeonc:
-DVT SQ heparin q12
Hg stable - transfuse <7
Ptl stable - transfuse <20 unless active bleeding then <50
Endocrine
-Hx pancreatic insufficiency
-Continue home probiotics and Creon
-Goal BG 140-180 - SSI if needed
-No hx DM or thyroid dz
Conversations regarding goals of care ongoing.
Diagnostic Data
Chest X-Ray: 02/05/24- No focal interstitial or airspace opacity to indicate pneumonia. Stable mild asymmetric elevation of the right diaphragm. No pneumothorax or congestive heart failure. No other significant change.
CT abdomen/pelvis without contrast 02/05/2024:
EXTREMELY LIMITED STUDY DUE to numerous factors, as detailed above in this patient in the setting of sepsis. Although no discrete focal abdominal/pelvic infectious process is identified, this cannot be excluded on the basis of this study.
1.4 cm indeterminate left adrenal nodule.
Bilateral lower lobe subsegmental atelectasis. Cannot exclude right lower lobe pneumonia
Prior cholecystectomy. Suspected biliary tract dilatation, unable to differentiate whether pathologic or the sequela of prior cholecystectomy. Suggest correlation with LFTs.
Echo: 12/09/22- Normal left ventricular size and systolic function. LV ejection fraction is 60-65% Diastolic function indeterminate. Mitral annular calcification.Mild mitral regurgitation. Aortic sclerosis without stenosis. Mild aortic
regurgitation. Mild tricuspid regurgitation. No prior study available for comparison.
Subjective Dataa
Subjective Data
Date of Service:
Date of Service: February 07, 2024
Chief Complaint: Vp Compliance Follow Up
Review of Systems
General: Fever (n) and Chills (n)
HEENT: Oral/Throat Pain (n)
Cardiopulmonary: Cough, Sputum Production (n), Wheezing (n) and Chest Pain (n)
GI: Abdominal Pain (n), Nausea (n), Vomiting (n), Diarrhea and Constipation (n)
Genitourinary: Moseley
Objective Data
Data Reviewed
Vital Signs / I&O / Oxygen:
Vital Signs
Temp Pulse Resp BP Pulse Ox
98.5 F 70 23 104/69 95
02/07/24 11:57 02/07/24 10:30 02/07/24 10:30 02/07/24 10:30 02/07/24 10:30
Intake and Output
02/06/24 02/07/24 02/08/24
06:59 06:59 06:59
Intake Total 2081.3 / 2260.1 3790.6 / 3836.4 417.6 / 417.6
Output Total 275 / 275 3585 / 3585 375 / 375
Balance 1806.3 / 1985.1 205.6 / 251.4 42.6 / 42.6
SaO2 95
Nasal Cannula flow liters per 2
minute
Physical Exam
General: Respiratory Distress (negative), Comfortable, Chills (negative) and Sweats (negative)
HEENT: Normocephalic and Anicteric
Cardiovascular: S1-S2, Murmur (Systolic murmur best heard at aortic point ) and Peripheral Edema (+2 lower extremity pitting edema bilaterally)
Respiratory: Wheeze (negative), Crackles (negative), Rhonchi (negative) and Non-Labored Respirations
GI: Soft, Non Distended, Non Tender and Normal Bowel Sounds
Neurology: Awake, Alert and Tremors (negative)
Skin: Warm, Dry, Cyanosis (negative) and Jaundice (negative)
Labs/Micro/Reports
Lab Data
02/07/24 04:27
Microbiology
02/05/24 15:13 Feces/Stool Salmonella/Shigella Culture - Preliminary
Culture in Progress
02/05/24 15:13 Feces/Stool Campylobacter Culture - Preliminary
Culture in Progress
02/05/24 09:39 Blood/Venous Blood Culture - Preliminary
No Growth in 48 hours- Final report to follow
02/05/24 15:13 Urine Urine Culture - Preliminary
Enterococcus species
Shala albicans
02/05/24 08:45 Blood/Venous Blood Culture - Preliminary
No Growth in 48 hours- Final report to follow
02/05/24 08:58 Decubitis Ulcer Wound Culture - Preliminary
Staphylococcus aureus
Enterococcus species
02/05/24 08:58 Decubitis Ulcer Gram Stain - Preliminary
02/05/24 15:13 Feces/Stool C. difficile GDH Antigen & Toxins - Final
C. difficile antigen positive, toxin negative.
Clostridium difficile present, but toxin not detected.
Patient may be a carrier, colonized with nontoxinogenic
strain or the level of toxin in sample is below detection
limits. This information should be used in conjunction with
the patient's clinical history.
02/05/24 08:58 Nasal Swab Influenza Types A & B (ARACELIS) - Final
Negative for Influenza A & B, NAAT
Negative results must be combined with clinical observations
and patient history.
Nucleic Acid Amplification test (NAAT)performed on the
[employer] platform.
--- NOTE | 2024-02-07 13:13 | W.PN.URO.CBU ---
Today's Communication / Plan
-
no fistulae noted
Assessment / Plan
-
urosepsi possibly exacerbated by gregory but no strong evidence of bladder or vaginal fistulae to colon Continue present care and try removal of gregory when able although issue of skin breakdown may obviate gregory removal
Diagnosis
-
Date of Service: February 07, 2024
-
Patient Diagnosis:pt has intestitial cystiis and frequent utis trted withintravedsiacl dmso and tobramycin no fistula no stool in vagina or vblader on nov exam but pt devolpe skin breakdown gregory palced to remove anyincontince of urine pt with
h/o uti despite allura ad macrodantion developed urpsepsis possib;ity of stool in vaginal vaut sanjay simnce foly placed ct scan did not show air lizette bladder and bladder waas empty
Post Op Day:
Subjective
-
feeling better
Objective
-
Vital Signs
Temp Pulse Resp BP Pulse Ox
98.5 F 70 23 104/69 95
02/07/24 11:57 02/07/24 10:30 02/07/24 10:30 02/07/24 10:30 02/07/24 10:30
Intake and Output
02/06/24 02/07/24 02/08/24
06:59 06:59 06:59
Intake Total 2081.3 / 2260.1 3790.6 / 3836.4 417.6 / 417.6
Output Total 275 / 275 3585 / 3585 375 / 375
Balance 1806.3 / 1985.1 205.6 / 251.4 42.6 / 42.6
Intake:
Oral fluids 200 / 200 150 / 150
IV fluids (Total) 1981.3 / 2160.1 3310.6 / 3356.4 217.6 / 217.6
Nss 1,000 ml @ 100 mls/hr IV . 800 / 900 2200 / 2200
Q10H KARINA Rx#:[id number]
Vaso 120 / 132 60 / 60
norepinephrine 1181.3 / 1260.1 990.6 / 1024.4 157.6 / 157.6
IV piggybacks 100 / 100 280 / 280 50 / 50
Output:
Urine, Gregory 255 / 255 3585 / 3585 375 / 375
Urine, Voided 20 20
Laboratory Results
02/07/24 04:27
Review of Systems
-
: Dysuria, Frequency and Difficulty Voiding
Physical Exam
-
General - well developed, well nourished, no acute distress
Chest - clear bilaterally
Abdomen - soft, non-tender, positive bowel sounds, no CVAT, no incisional pain or distention
Genitalia - normal
Rectal - normal
Skin - warm & dry with no rash
Neuro - AOx3, no motor deficits
Extremities - no clubbing, no cyanosis, no edema
Incision - clean, dry
Dressing - clean, dry, intact
Care Review
Data Reviewed
Discussed with: Hospitalist and Nursing
CT Scan: Image Pers Reviewed
[2024-02-07] MEDS: VANCOCIN HCL 500 MG 100 IV (13:34)
--- NOTE | 2024-02-07 14:51 | W.PN.UPDATE ---
Update Note
Progress Note Update
Pt seen with family present, reviewed with nursing staff. Amitriptyline was placed on hold 02/04 by hospitalist, no specific reason noted. Nursing reports pt is not swallowing pills; plan is for a swallowing study. Pt noted with hypoactive bowel
sounds, having diarrhea. Son reports she is used to being on Amitriptyline low dose. He also asked if pt can receive prn Xanax at nighttime; it was ordered as daily prn. Pt continues to have dysphoric affect, feels depressed with loss of
appetite. Topamax was stopped; no signs of tremor thus far.
Imp: Unspecified depression, appears situational related to illness/pain/repeated admissions
Rec: Will resume low dose Amitriptyline 20 mg HS- can help with depression, anxiety, pain mgt. Will change prn Xanax to allow night-time dose if needed
Will follow
--- NOTE | 2024-02-07 15:12 | CON.ID ---
Consultation
-
Date/Time Consultation Requested: February 07, 2024 1450
Date/Time Consultation Performed: February 07, 2024 1515
Requesting Provider: Dr. Camron Mosley
Performing Provider: Dr. Kavita Drake
Reason for Consultation: sacral wound, colo-vesical fistula, unable to wean off pressor
Chief Complaint / Past History
Chief Complaint
Weakness and low blood pressure.
History of Present Illness
History obtained from review of medical records, from the patient as well as from her family at bedside. She is an 88-year-old female with history of hypertension, heart failure, atrial fibrillation, pacemaker placement, who has had several
hospital admissions since right foot fracture requiring boot for 5 weeks then developed right heel wound with cellulitis for which she was hospitalized from December 15 to December 18, treated with antibiotic, also noted to have line associated
bilateral upper extremity DVT. She was then discharged to senior care facility. She was again hospitalized from January 12 to January 17 with weakness, urinary retention, VLADISLAV and UTI. Patient noted to have deep soft tissue injury of the
sacrum during last hospitalization. She was then discharged to [facility]. She became hypotensive and therefore sent to the hospital on February 04. Temperature was 102.9. White count 13.6. She was hypotensive and now on
2 pressors. Chest x-ray no pneumonia. Patient was started on cefepime and vancomycin. Per son patient was having diarrhea the day of admission and yesterday. On admission patient's diaper was soaked with stool. Initially there was concern
regarding colovesical fistula since stool was coming out of her vagina. CT of the abdomen and pelvis limited due to hardware artifact but otherwise unremarkable. She was assessed by colorectal as well as urology who both ruled out colovesical
fistula. Moseley was placed. Patient sacral wound has deteriorated. Wound contaminated with stool. Surgery recommends diverting colostomy. Patient had significant wound pain last night during clean up of the diarrhea. This morning patient was
having dry heaves and coughing while attempting to take p.o. meds. She is now refusing anything p.o. She is also refusing video swallow test. Patient has history of interstitial cystitis and recurrent UTIs. No flank pain. No abdominal pain.
Past History
Additional Past Medical History:
Hypertension
Peripheral neuropathy
Paroxysmal atrial fibrillation
Heart failure with preserved EF
Tachybradycardia syndrome status post pacemaker placement
Interstitial cystitis
CKD3
Anxiety/depression
Pancreatic insufficiency
hx C. diff 2 years ago
Cholecystectomy
Allergy History:
aspirin [From Percodan] Allergy (Verified 02/05/24 10:31)
Nausea / Vomiting
erythromycin base Allergy (Verified 02/05/24 10:31)
Vomiting
oxycodone [From Percodan] Allergy (Verified 02/05/24 10:31)
Vomiting
phenobarbital Allergy (Verified 02/05/24 10:31)
Rash
Sulfa (Sulfonamide Antibiotics) Allergy (Verified 02/05/24 10:31)
Swelling
zolpidem [From Ambien] Allergy (Verified 02/05/24 10:31)
Unknown
Medications Reviewed: Yes
Current Antibiotics:
Vancomycin
Cefepime
Social History
Tobacco: Non-Smoker
Alcohol: None
Drug: None
Living: Residential
Family History
Family History: Not Pertinent
Review of Systems
Review of Systems
General: Change in Appetite; Negative Chills
HEENT: Negative Sinus Problems, Headache or Pharyngitis
Cardiovascular: Negative Chest Pain
Respiratory: Dyspnea and Cough; Negative Sputum Production
Gasteroenterology: Negative Vomiting
Genital / Urological: Negative Dysuria or Flank Pain
Endocrine: Weakness
Skin / Hair / Nails: Negative Rash
Neurological: Negative Dizziness
Vital Signs
Temp Pulse Resp BP Pulse Ox
98.5 F 74 28 102/56 91
02/07/24 11:57 02/07/24 14:15 02/07/24 14:15 02/07/24 13:30 02/07/24 14:15
Physical Exam
Physical Exam
Constitutional: Acutely Ill
Head: Other (No frontal or maxillary sinus tenderness)
Eyes: No Conjunctival Hemorrhage and Sclera Anicteric
Cardiovascular: Regular Rate, S1/S2 and Other (PPM site without erytehma/induration)
Pulmonary: Clear (anteriorly)
Gastrointestinal: Soft, Non Distended and Normal Bowel Sounds
Genito-Urinary: Moseley and Clear Urine (no fecal particles); Negative CVA Tenderness
Extremities: Edema
Wound: Other (Reviewed wound photos: gluteall cleft and buttocks wound with necrotic area and periwound erythema)
Neurological: Awake and Alert
Lab / Diagnostic Study Results
02/07/24 04:27
Abs Immat Gran (auto) 0.2 10^3/uL (0-0.05) H 02/07/24 04:27
Absolute Neuts (auto) 15.3 10^3/uL (1.4-6.5) H 02/07/24 04:27
Absolute Lymphs (auto) 0.6 10^3/uL (1.2-3.4) L 02/07/24 04:27
Absolute Monos (auto) 1.3 10^3/uL (0.1-0.6) H 02/07/24 04:27
Absolute Basos (auto) 0.0 10^3/uL (0-0.2) 02/07/24 04:27
Immature Gran % 1.1 % (0-0.5) H 02/07/24 04:27
Neutrophils % 87.8 % (42.2-75.2) H 02/07/24 04:27
Lymphocytes % 3.3 % (20.5-51.1) L 02/07/24 04:27
Monocytes % 7.4 % (1.7-9.3) 02/07/24 04:27
Eosinophils % 0.2 % (0-6) 02/07/24 04:27
Basophils % 0.2 % (0-2) 02/07/24 04:27
PT 16.9 Sec (11.4-14.6) H 02/05/24 16:38
INR 1.35 02/05/24 16:38
Lactic Acid Cancelled 02/05/24 12:45
Ur Squamous Epith Cells 3-5 /LPF (Few) 02/05/24 15:13
Microbiology Results
Micro:
02/06/24 12:34 MRSA Screen - Final
Nose No Methicillin Resistant Staphylococcus aureus isolated.
02/05/24 15:13 Salmonella/Shigella Culture - Preliminary
Feces/Stool Culture in Progress
Campylobacter Culture - Preliminary
Culture in Progress
Shiga Toxin Test - Pending
02/05/24 09:39 Blood Culture - Preliminary
Blood/Venous No Growth in 48 hours- Final report to follow
02/05/24 15:13 Urine Culture - Preliminary
Urine Enterococcus species
Shala albicans
02/05/24 08:45 Blood Culture - Preliminary
Blood/Venous No Growth in 48 hours- Final report to follow
02/05/24 08:58 Wound Culture - Preliminary
Decubitis Ulcer Staphylococcus aureus
Enterococcus species
Gram Stain - Preliminary
02/05/24 15:13 C. difficile GDH Antigen & Toxins - Final
Feces/Stool C. difficile antigen positive, toxin negative.
Clostridium difficile present, but toxin not detected.
Patient may be a carrier, colonized with nontoxinogenic
strain or the level of toxin in sample is below detection
limits. This information should be used in conjunction with
the patient's clinical history.
02/05/24 08:58 Influenza Types A & B (ARACELIS) - Final
Nasal Swab Negative for Influenza A & B, NAAT
Negative results must be combined with clinical observations
and patient history.
Nucleic Acid Amplification test (NAAT)performed on the
[employer] platform.
02/05/24 CT a/p: EXTREMELY LIMITED STUDY DUE to numerous factors, as detailed above in this patient in the setting of sepsis. Although no discrete focal abdominal/pelvic infectious process is identified, this cannot be excluded on the basis of this
study. 1.4 cm indeterminate left adrenal nodule.
Bilateral lower lobe subsegmental atelectasis. Cannot exclude right lower lobe pneumonia.
02/05/24 CXR: No focal interstitial or airspace opacity to indicate pneumonia.
Assessment / Plan
# UTI - due to recent diarrhea on diaper contaminating urethra
-NO colovesical fistula as per Urology and Colorectal
- Ucx >100K Enterococcus, 30K C. albicans
- DC Vanco/cefepime.
- Start Unasyn 3g IV q12h.
- No need to treat the Shala in the urine
# Sacral decubitus wound with infection/cellulitis due to fecal conatmination
- Surgery recommends diverting colostomy
- Wound cx S. aureus, Enterococcus species
- DC Vanco/cefepime.
- Start Unasyn 3g IV q12h.
# Septic shock on 2 pressors
- Fever trending down
- Leukocytosis perists
- Blood cx's neg to date
- Follow vitals, wbc
# Diarrhea
- hx of C. diff
- Stool C. diff antigen +, toxin -.
Pt colonized, not active C. diff, as diarrhea resolved.
- Pt refuses po meds, unable to give prophylactic po Vanco.
-Monitor closely for recurrence of C. diff.
# Dysphagia.
-Aspiration precaution
-Pt refuses video swallow study
-Pt refuses po intake
Prognosis overall guarded.
# Conditions prior to admission
Hypertension
Peripheral neuropathy
Paroxysmal atrial fibrillation
Heart failure with preserved EF
Tachybradycardia syndrome status post pacemaker placement
Interstitial cystitis
CKD3
Anxiety/depression
Line associated DVT
Pancreatic insufficiency
hx C. diff 2 years ago
Cholecystectomy
--- NOTE | 2024-02-07 16:00 | CON.GS ---
Medical History
-
Chief Complaint: Pressure ulcer
History of Present Illness:
Patient is an 88 yo F with a PMH of GERD, HTN, HLD, A-fib (previously on Eliquis), diastolic CHF, upper extremity DVT, stage III CKD, peripheral neuropathy with lower extremity wounds, h/o C. difficile, s/p pacemaker, s/p hip and knee replacements,
s/p neurostimulator placement, s/p appendectomy, and s/p hysterectomy. Ms. Marisacl has a history of recurrent UTIs as well as urinary and fecal incontinence. She follows with Dr. Coleman for chronic interstitial cystitis and pelvic floor
disorder. She is on Rimso and Tobramycin weekly installations. She has previously failed Myrbetriq and sacral neurostimulator. She has declined pelvic floor PT.
She was recently here at from 01/12 to 01/17 due to a UTI. She re-presents from [facility] due to a fever. During the course of her workup she was noted to have a pressure ulcer just posterior to her anus. General surgery has been consulted for
aid in management. Per report from her son this was initially noted approximately 2 weeks ago during her prior admission. She reports constant perianal pain. She has significant issues with fecal incontinence.
Past Medical History
Past Medical History: Arrhythmias (Afib), CHF, GERD, HTN, Hypercholesterolemia, Renal Failure (stage III CKD) and Other (DVT, pancreatic insufficiency, peripheral neuropathy with lower extremity wounds, h/o C. difficile)
Past Surgical History: Appendectomy, Cardiac (Pacemaker), Gynecological (Hysterectomy), Orthopedic (Hip and knee replacements) and Other (Neurostimulator)
Social History
Tobacco: Non-Smoker
Alcohol: None
Drug: None
Family History
Family History: Reviewed & Not Pertinent
Allergies / Home Medications
Allergy/AdvReac Type Severity Reaction Status Date / Time
aspirin [From Percodan] Allergy Nausea / Verified 02/05/24 10:31
Vomiting
erythromycin base Allergy Vomiting Verified 02/05/24 10:31
oxycodone [From Percodan] Allergy Vomiting Verified 02/05/24 10:31
phenobarbital Allergy Rash Verified 02/05/24 10:31
Sulfa (Sulfonamide Allergy Swelling Verified 02/05/24 10:31
Antibiotics)
zolpidem [From Ambien] Allergy Unknown Verified 02/05/24 10:31
�Medication �Instructions �Recorded �Confirmed �Type
Lactobacillus rhamnosus GG 10 1 cap PO DAILY Supplement 12/13/22 02/05/24 History
billion cell capsule (Culturelle)
amiodarone 200 mg tablet 200 mg PO BID Arrhythmia 12/13/22 02/05/24 History
calcitriol 0.5 mcg capsule 0.5 mcg PO DAILY Supplement 12/13/22 02/05/24 History
estradiol 0.01% (0.1 mg/gram) 1 g vaginal DAILYPRN PRN estrogen 12/13/22 02/05/24 History
vaginal cream supplement
xbxbbr-yqrsbonq-nkcjqpu 6,000 cap PO TID Gastrointestinal 12/13/22 02/05/24 History
6,000-19,000-30,000 unit Issue
capsule,delayed rel (Creon)
acetaminophen 500 mg tablet 1,000 mg PO Q6HPRN PRN mild pain 12/17/23 02/05/24 History
(Tylenol Extra Strength)
amitriptyline 10 mg tablet 20 mg PO HS Neurological Condition 12/17/23 02/05/24 History
melatonin 5 mg tablet 5 mg PO HS Sleep 12/17/23 02/05/24 History
omeprazole 20 mg capsule,delayed 20 mg PO DAILY Gastrointestinal 12/17/23 02/05/24 History
release Issue
potassium chloride 20 mEq 20 meq PO DAILY Supplement 12/17/23 02/05/24 History
tablet,extended release
topiramate 50 mg tablet 50 mg PO DAILY Neurological 12/17/23 02/05/24 History
Condition
vibegron 75 mg tablet (Gemtesa) 75 mg PO DAILY Urinary Issue 12/17/23 02/05/24 History
acetaminophen 325 mg tablet 650 mg PO Q4HPRN PRN fever >100 01/13/24 02/05/24 History
docusate sodium 100 mg capsule 100 mg PO BID Supplement 01/13/24 02/05/24 History
ferrous sulfate 325 mg (65 mg 325 mg PO DAILY Supplement 01/13/24 02/05/24 History
iron) tablet
lidocaine 5 % topical patch 1 patch topical DAILY right thigh 01/13/24 02/05/24 History
torsemide 20 mg tablet 20 mg PO DAILY Fluid 01/13/24 02/05/24 History
Retention/Swelling
metoprolol tartrate 25 mg tablet 25 mg PO BID Afib #60 tabs 01/18/24 02/05/24 Rx
alprazolam 0.25 mg tablet (Xanax) 0.25 mg PO DAILYPRN PRN anxiety 02/05/24 02/05/24 History
bisacodyl 10 mg rectal suppository 10 mg GA DAILYPRN PRN if no bm on 02/05/24 02/05/24 History
(Dulcolax (bisacodyl)) 5th day and if nothing aftr mom
ipratropium 0.5 mg-albuterol 3 mg 3 ml inhalation R Q6HPRN PRN sob 02/05/24 02/05/24 History
(2.5 mg base)/3 mL nebulization
soln
magnesium hydroxide 400 mg/5 mL 2,400 mg PO DAILYPRN PRN if no bm 02/05/24 02/05/24 History
oral suspension (Milk of Magnesia) on 4th day
mineral oil 1 applic topical DAILY both feet 02/05/24 02/05/24 History
ondansetron HCl 4 mg tablet 4 mg PO Q8HPRN PRN nausea 02/05/24 02/05/24 History
oxycodone 5 mg tablet 5 mg PO TID Pain 02/05/24 02/05/24 History
sodium hypochlorite 0.125 % 1 applic topical DAILY left 02/05/24 02/05/24 History
solution (Dakin's Solution) buttocks
sodium phosphates 19 gram-7 118 ml GA DAILYPRN PRN if no bm 02/05/24 02/05/24 History
gram/118 mL enema (Fleet Enema) aon 6th day
zinc sulfate 220 mg capsule 220 mg PO DAILY Supplement 02/05/24 02/05/24 History
Review of Systems
-
A 10 point review of systems was completed, and was negative except as per HPI.
Physical Exam
Vital Signs
Temp Pulse Resp BP Pulse Ox
98.5 F 74 28 102/56 91
02/07/24 15:49 02/07/24 14:15 02/07/24 14:15 02/07/24 13:30 02/07/24 14:15
02/06/24 02/07/24 02/08/24
06:59 06:59 06:59
Actual Weight 69.9 kg 69.9 kg
Body Mass Index (BMI) 28.2
Lab Results
02/07/24 04:27
WBC 17.4 10^3/uL (4.8-10.8) H 02/07/24 04:27
Hgb 11.8 g/dL (12.0-16.0) L 02/07/24 04:27
Hct 35.5 % (37.0-47.0) L 02/07/24 04:27
Plt Count 122 10^3/uL (130-400) L D 02/07/24 04:27
Abs Immat Gran (auto) 0.2 10^3/uL (0-0.05) H 02/07/24 04:27
Neutrophils % 87.8 % (42.2-75.2) H 02/07/24 04:27
Physical Exam
General: No Apparent Distress
HEENT: Normocephalic and Anicteric
Respiratory: Non Labored Respirations
Cardiac: Regular Rhythm
GI: Soft, Non Tender and Non Distended
Rectal: Other (Circumferential skin tags, weak sphincter tone, no palpable masses, stage II pressure ulcer immediately posterior to the anus with superficial slough, no necrosis or purulence, no drainage, no palpable fluid collection underlying )
Skin: Warm and Dry
Data Reviewed
-
CT Scan: Image Personally Visualized and interpreted and Report Reviewed by me
Labs: Labs Reviewed by me
Assessment / Plan
-
Patient is a 88 yo F p/w septic shock
Stage II pressure ulcer is superficial and does not appear to contain any necrotic or infected tissue. CT scan does not demonstrate a large underlying fluid collection. Quite painful and symptomatic likely related to involvement of perianal skin
which is more sensitive. The natural history and pathophysiology of pressure ulcers was reviewed. Difficult situation with very likely low likelihood of ever healing given immobility, malnutrition, and continued fecal soilage. No role or plan for
operative debridement at this time. We discussed potential need for operative debridement in the future, as well as the potential benefit of a diverting colostomy as it appears a lot of her medical issues and recent admissions are related to
incontinence leading to UTIs, skin irritation, and pressure ulcers. Patient and family state that they would not want any surgical intervention; as such, debridement of sacral decubitus ulcers and diverting colostomy are against patient's wishes.
All questions answered. Call with any questions or concerns.
-- Local wound care and off loading
-- No role for surgical intervention now (no infected or necrotic tissue necessitating debridement) or in the future (against patients wishes)
-- Discussed diverting colostomy, patient and family state she would not want surgery
--- NOTE | 2024-02-07 16:09 | W.PN.HOSP.TC ---
Today's Communication/Plan
-
Continue broad-spectrum antibiotics
Remains vasopressor dependent
Surgery consultation with attempt for bedside debridement of the sacral wound (possible source of infection)
Ongoing discussions in regards to goals of care. If remains vasopressor dependent with no overall clinical improvement, contemplating transition to comfort.
Assessment / Plan
Assessment / Plan
Impression:
Septic shock
Recurrent urinary tract infection/CAUTI
-Indwelling Moseley catheter
Diarrhea on presentation with stool incontinence
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
Acute kidney injury.
Toxic metabolic encephalopathy secondary to infection
Acute hypoxic respiratory insufficiency
Other conditions:
Chronic sacral decubital ulcers
Chronic lower extremity pressure wounds.
Chronic diastolic CHF
CKD stage IIIb.
Essential hypertension.
Paroxysmal A-fib.
Tachybradycardia syndrome status post PPM.
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
History of C. difficile infection
Pancreatic insufficiency
GERD
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
Surgical history including appendectomy, tonsillectomy, neurostimulator placement 1988
Plan:
Sepsis with septic shock requiring vasopressors secondary to recurrent catheter associated urinary tract infection
Indwelling Moseley catheter
Reported stool in vaginal vault with concern for enterovaginal fistula
CT scan of the abdomen and pelvis without contrast unrevealing
Blood cultures negative to date
Urine cultures with Enterococcus and Shala species
Continue broad-spectrum antibiotics: Vancomycin/cefepime.
Continue isotonic IV fluids.
Remains on Levophed with attempt to wean as blood pressure tolerates.
Urology and colorectal surgery appreciated with so far no confirmation of enterovesicular fistula
VLADISLAV on CKD stage IIIb with baseline creatinine 1.3�1.6-1.3
This is secondary to prerenal stimuli with sepsis and hypotension
Moseley catheter is in place baseline continue IV fluids and Levophed as above.
Follow daily BMP.
Hold torsemide
Toxic metabolic encephalopathy secondary to acute infection and sepsis
Pathology: Presentation
Mental status improved and back to baseline.
Acute hypoxic respiratory insufficiency
No active respiratory complaints.
Stable oxygenation.
Chest x-ray with bibasilar atelectasis.
Continue aspiration precautions.
Chronic CHF preserved EF.
Echo 12/27 with LVEF 60 to 65%. No significant valvular abnormalities
Given hypotension, hold torsemide and monitor volume status closely.
Paroxysmal A-fib.
Tachybradycardia syndrome status post PPM.
Preadmission regimen including amiodarone, metoprolol
Anticoagulation with Eliquis.
Continue amiodarone
Hold metoprolol due to hypotension.
Hold Eliquis with possible workup for enterovaginal fistula
Neuropsychiatric: Dementia likely vascular/senile type, neuropathy.
Patient's son reports significant declining including mental status, appetite, performance baseline
Stop Topamax (likely started for neuropathy, although potentially decreasing appetite)
Continue amitriptyline. Continue Xanax, oxycodone as needed monitor for oversedation
02/05 goals of care discussion with patient's son.
CODE STATUS DNR.
Given overall declining, recurrent UTI, ambulatory dysfunction, pressure wounds and overall failure to thrive option of palliative care with transition to hospice brought up for consideration.
Anticipated Discharge: > 48 hours
Subjective/Interval History
-
Date of Service: February 07, 2024
Objective Data
-
Labs:
Laboratory Results
02/07/24 02/07/24 02/07/24
04:27 05:17 13:00
WBC 17.4 H
Hgb 11.8 L
Hct 35.5 L
Plt Count 122 L D
Sodium Cancelled 132 L Pending
Potassium Cancelled 3.3 L Pending
Chloride Cancelled 105 Pending
Carbon Dioxide Cancelled 20 L Pending
BUN Cancelled 27 H Pending
Creatinine Cancelled 1.3 H Pending
Glucose Cancelled 189 H Pending
Calcium Cancelled 6.7 L* Pending
Vital Signs:
Vital Signs
Temp Pulse Resp BP Pulse Ox
98.5 F 74 28 102/56 91
02/07/24 15:49 02/07/24 14:15 02/07/24 14:15 02/07/24 13:30 02/07/24 14:15
I&O
02/06/24 02/07/24 02/08/24
06:59 06:59 06:59
Intake Total 2081.3 / 2260.1 3790.6 / 3836.4 543.6 / 543.6
Output Total 275 / 275 3585 / 3585 635 / 635
Balance 1806.3 / 1985.1 205.6 / 251.4 -91.4 / -91.4
Physical Exam
-
General: Well Developed, Well Nourished, Fever and Appears Chronically Ill
HEENT: Normocephalic, Atraumatic and Moist Mucous Membranes
Respiratory: Clear to Auscultation (on shallow respirations)
Cardiac: Regular Rhythm and S1/S2
GI: Soft, Nontender and Nondistended
Genito-urinary: Moseley
Neuro: Awake, Alert and Oriented
--- NOTE | 2024-02-07 18:07 | VATNOTE ---
Exchange midline to PICC order Discussed with PCN, PICC line attempt on 02/04 failed due to pacemaker wires obstructing right PICC placement, Thus a midline was placed on the right. Would not attempt to exchange midline on the right for a PICC
because of the previous failed attempt. Apparently there is discussion of transitioning patient to comfort care. Will attempt to place PICC in left arm if patient remains in critical car status
[2024-02-07] MEDS: UNASYN IV (18:25)
[2024-02-07 18:38] LABS: Blood Urea Nitrogen 26 mg/dl (7-17); Carbon Dioxide 22 mmol/L (22-30); Estimated Creatinine Clearance 25 ml/min; Glucose 114 mg/dl (70-99); Magnesium 2.3 mg/dl (1.6-2.3); Potassium 4.3 mmol/L (3.5-5.1); Sodium 136 mmol/L (135-145); eGFR 36.19
--- NOTE | 2024-02-07 18:45 | PTCARENOTE ---
Pt continues to not eat or drink. Pt and family do not want NGT. Unable to wean pressors. New order for 1L IVF bolus. 600ml given. Increasing O2 requirements during bolus. Bolus stopped after 600ml in. MD notified. New order for CXR.
[2024-02-07 18:46] LABS: Calcium 8.5 mg/dl (8.4-10.2); Chloride 106 mmol/L (98-107)
--- NOTE | 2024-02-07 19:30 | PTCARENOTE ---
Patient received lying in bed with eyes closed, respirations non labored, lying still. Opens eyes to name called but is very groggy. Falls asleep easily. Denies pain. On Vasopressin and Levophed. BP remains soft. See assessment charted. BBS with
crackles scattered t/o. Currently on 7L midflow. Oxygen sats 92%. SR with 1st degree AVB, BBB, occasional Apaced beats
[2024-02-07] MEDS: HEPARIN 5000 UNITS SC (21:18)
[2024-02-07] MEDS: LASIX 20 MG IV (21:33)
--- NOTE | 2024-02-07 21:40 | PTCARENOTE ---
Patient more dyspneic. Oxygen sats 86% on 7L mid flow. S/p Lasix. Oxygen increased to 10L mid flow, sats improved. Melinda updated with patient clinical status. CXR noted with pulmonary edema and possible new DILIA pneumonia. On Unasyn Abx.
[2024-02-08] VITALS (26 sets, daily range): BP systolic 81–128; BP diastolic 39–93
--- NOTE | 2024-02-08 | PTCARENOTE ---
Patient with improvement of breathing. BBS still with scattered crackles. Respiratory therapist placed patient on 15L midflow, humidified oxygen. Patient appears to be sleeping comfortably when left undisturbed. Denies pain, no c/o pain. Anxious at
times. Emotional support and encouragement provided as needed.
[2024-02-08] MEDS: PITRESSIN 100 IV (02:57)
--- NOTE | 2024-02-08 04:00 | PTCARENOTE ---
Maintaining oxygen saturation up to 99% on 15L midflow. Oxygen decreased to 12L. BP remains quite soft. Titrate levophed as needed. See flowsheet.
[2024-02-08 04:38] LABS: % Basophils 0.1 % (0-2); % Eosinophils 0.1 % (0-6); % Immature Granulocytes 0.9 % (0-0.5); % Lymphocytes 3.6 % (20.5-51.1); % Monocytes 8.2 % (1.7-9.3); % Neutrophils 87.1 % (42.2-75.2); Absolute Immature Granulocytes 0.2 10^3/uL (0-0.05); Absolute Lymphocytes 0.7 10^3/uL (1.2-3.4); Absolute Monocytes 1.6 10^3/uL (0.1-0.6); Absolute Neutrophils 16.9 10^3/uL (1.4-6.5); Hematocrit 36.6 % (37.0-47.0); Hemoglobin 11.8 g/dL (12.0-16.0); Mean Corp Hgb Conc. 32.2 g/dL (33.0-37.0); Mean Corpuscular Volume 102.2 fL (81.0-99.0); Mean Platelet Volume 11.9 fL (7.4-10.4); Nucleated Red Blood Cells % 0 %; Platelet Count 179 10^3/uL (130-400); Red Blood Cell Count 3.58 10^6/uL (4.20-5.40); Red Cell Dist. Width 15.2 % (11.5-14.5); White Blood Cell Count 19.3 10^3/uL (4.8-10.8)
[2024-02-08] MEDS: LEVOPHED 250 IV ×2 (04:45→10:25)
[2024-02-08 04:57] LABS: Blood Urea Nitrogen 27 mg/dl (7-17); Calcium 8.5 mg/dl (8.4-10.2); Carbon Dioxide 21 mmol/L (22-30); Chloride 106 mmol/L (98-107); Estimated Creatinine Clearance 24 ml/min; Glucose 110 mg/dl (70-99); Potassium 3.6 mmol/L (3.5-5.1); Sodium 138 mmol/L (135-145); eGFR 33.31
[2024-02-08 05:06] LABS: Vancomycin Random 18.1 ug/ml
[2024-02-08] MEDS: UNASYN IV (05:40)
--- NOTE | 2024-02-08 08:26 | W.PN.INTV ---
Today's Communication / Plan
Recommendations
Transitioning to comfort care
Stop all medications unless tailored for comfort
Would favor using Dilaudid versus fentanyl for pain/air hunger/shortness of breath given her elevated creatinine
prn Ativan for agitation/anxiety
[employer] services offered
Emotional support provided
Chief Internal Auditor/Pulmonary service will now sign off � thank you for allowing us to be involved in the care of this patient. Please call back if there are any additional questions or concerns.
Assessment
-
Patient is an 88-year-old female with previous history of recurrent UTI (recently admitted and discharged on 01/20/2024), presenting from [facility] for fever. She was found to be hypoxemic on room air at 88%. She arrived with diarrhea in her
diaper. In the ER, was also notably hypotensive, placed on Levophed. She had stool coming out of her vagina. There is extreme excoriation in her pelvic area. She is admitted to ICU for septic shock.
Conditions prior to admission:
Chronic sacral decubitus/lower extremity wound
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
Chronic diastolic congestive heart failure
Chronic kidney disease stage IIIb
Peripheral neuropathy
Pancreatic insufficiency
Essential hypertension
History of clostridium difficile infection
Gastro-esophageal disease
PAF
Tachy-janak syndrome s/p PPM
Diverticulosis with hx diverticulitis
Hip/knee replacements
Neurostimulator placement 1988
Appendectomy
Tonsillectomy
Impression:
Septic shock due to UTI vs sacral wound on vasopressors
Recurrent UTI, recent admission 01/20/2024
Toxic metabolic encephalopathy
Acute decompensated heart failure
Diarrhea with stool incontinence
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
VLADISLAV on CKD stage 3b
Leukocytosis
Fever
Acute hypoxic respiratory failure likely due to pulmonary edema
Plan:
- Discussion held this morning with the son and the patient, and they have agreed to transition to comfort care
- Hospice consulted
- Stop all medications unless tailored for comfort
- Primary hospitalist made aware
- Stop blood draws and frequent vital signs
- [employer]ice services offered
- Emotional support provided
- Given elevated creatinine, would favor using fentanyl versus Dilaudid prn for air hunger/pain/shortness of breath, and Ativan prn for anxiety/agitation
- Once all family members are at bedside, stop vasopressors
- Can continue supplemental O2 if needed only for comfort; otherwise would recommend removing as this will delay the dying process
- Patient is already DNR/DNI
Given that the patient is now transitioning to comfort care, Chief Internal Auditor/Pulmonary service will now sign off. Thank you for allowing us to be involved in the care of this patient. Please call back if there are any additional questions or concerns.
Total time spent today was 41 minutes for this encounter. Time includes reviewing laboratory test/imaging results, reviewing pertinent medical records, obtaining and reviewing medical history, performing an appropriate exam, ordering medications,
tests and procedures. Time also includes documentation of this encounter, coordinating patient care and communicating with other healthcare professionals. Total time does not include separately billed tests performed on this date of service.
Subjective Dataa
Subjective Data
Date of Service:
Date of Service: February 08, 2024
Chief Complaint: Chief Internal Auditor Follow Up
Subjective:
Patient seen and evaluated today at bedside. Son is at bedside. Patient is currently on 10 L/min via midflow nasal cannula saturating 90% and is mildly tachypneic, still having coughing fits at times feeling like she is choking. Last night a CXR
was obtained showing bilateral pulmonary edema and she was treated with Lasix. Patient says that she 'wants to .' Discussion held with son and patient, and they have agreed to transition to comfort care/hospice. All questions were answered.
Emotional support was provided.
Review of Systems
General: Other (Negative unless mentioned above)
Objective Data
Data Reviewed
Vital Signs / I&O / Oxygen:
Vital Signs
Temp Pulse Resp BP Pulse Ox
97.9 F 78 23 94/39 95
02/08/24 07:47 02/08/24 04:15 02/08/24 04:15 02/08/24 04:00 02/08/24 02:45
Intake and Output
02/07/24 02/08/24 02/09/24
06:59 06:59 06:59
Intake Total 3790.6 / 3836.4 1845.6 / 1845.6
Output Total 3585 / 3585 1020 / 1020
Balance 205.6 / 251.4 825.6 / 825.6
SaO2 95
Nasal Cannula flow liters per 2
minute
Physical Exam
General: Respiratory Distress (negative), Comfortable, Chills (negative) and Sweats (negative)
HEENT: Normocephalic and Anicteric
Cardiovascular: S1-S2, Murmur (Systolic murmur best heard at aortic point ) and Peripheral Edema (+2 lower extremity pitting edema bilaterally)
Respiratory: Wheeze (negative), Crackles (bilaterally), Rhonchi (negative) and Non-Labored Respirations
GI: Soft, Non Distended, Non Tender and Normal Bowel Sounds
Neurology: Awake, Alert and Tremors (negative)
Skin: Warm, Dry, Cyanosis (negative) and Jaundice (negative)
Labs/Micro/Reports
Lab Data
02/08/24 03:43
02/08/24 03:43
Microbiology
02/05/24 08:45 Blood/Venous Blood Culture - Preliminary
No Growth in 72 hours- Final report to follow
02/05/24 08:58 Decubitis Ulcer Wound Culture - Preliminary
S aureus-Methicillin Sensitive
Enterococcus species
02/05/24 08:58 Decubitis Ulcer Gram Stain - Preliminary
02/06/24 12:34 Nose MRSA Screen - Final
No Methicillin Resistant Staphylococcus aureus isolated.
02/05/24 15:13 Feces/Stool Salmonella/Shigella Culture - Preliminary
Culture in Progress
02/05/24 15:13 Feces/Stool Campylobacter Culture - Preliminary
Culture in Progress
02/05/24 09:39 Blood/Venous Blood Culture - Preliminary
No Growth in 48 hours- Final report to follow
02/05/24 15:13 Urine Urine Culture - Preliminary
Enterococcus species
Shala albicans
02/05/24 15:13 Feces/Stool C. difficile GDH Antigen & Toxins - Final
C. difficile antigen positive, toxin negative.
Clostridium difficile present, but toxin not detected.
Patient may be a carrier, colonized with nontoxinogenic
strain or the level of toxin in sample is below detection
limits. This information should be used in conjunction with
the patient's clinical history.
02/05/24 08:58 Nasal Swab Influenza Types A & B (ARACELIS) - Final
Negative for Influenza A & B, NAAT
Negative results must be combined with clinical observations
and patient history.
Nucleic Acid Amplification test (NAAT)performed on the
[employer] platform.
[2024-02-08] MEDS: DETROL LA PO (08:42)
[2024-02-08] MEDS: KCL PO (08:42)
[2024-02-08] MEDS: ROXICODONE PO (08:43)
[2024-02-08] MEDS: PACERONE PO (08:43)
[2024-02-08] MEDS: HEPARIN 5000 UNITS SC (09:20)
[2024-02-08] MEDS: LIDOCAINE 4% PATCH 1 PATCH TOPICAL (09:21)
[2024-02-08] MEDS: HYDROPHOR 1 APPLIC TOPICAL (09:21)
[2024-02-08] MEDS: DAKIN'S SOLUTION 0.125% 1/4 STRENGTH 473 ML TOPICAL (09:22)
--- NOTE | 2024-02-08 09:24 | W.PN.URO.CBU ---
Today's Communication / Plan
-
no gu chnages no fistula
Assessment / Plan
-
urosepsi possibly exacerbated by gregory but no strong evidence of bladder or vaginal fistulae to colon Continue present care and try removal of gregory when able although issue of skin breakdown may obviate gregory removalspoke with family about
urological care big picture is lack of priopgress and family and pt may need to ds=ecide on comfort etc
Diagnosis
-
Date of Service: February 08, 2024
-
Patient Diagnosis:
Post Op Day:
Patient Diagnosis:pt has intestitial cystiis and frequent utis trted withintravedsiacl dmso and tobramycin no fistula no stool in vagina or vblader on nov exam but pt devolpe skin breakdown gregory palced to remove anyincontince of urine pt with
h/o uti despite allura ad macrodantion developed urpsepsis possib;ity of stool in vaginal vaut sanjay simnce foly placed ct scan did not show air lizette bladder and bladder waas empty
Post Op Day:
Subjective
-
still weak wbc up
Objective
-
Vital Signs
Temp Pulse Resp BP Pulse Ox
97.9 F 78 23 94/39 95
02/08/24 07:47 02/08/24 04:15 02/08/24 04:15 02/08/24 04:00 02/08/24 02:45
Intake and Output
02/07/24 02/08/24 02/09/24
06:59 06:59 06:59
Intake Total 3790.6 / 3836.4 1845.6 / 1845.6
Output Total 3585 / 3585 1020 / 1020
Balance 205.6 / 251.4 825.6 / 825.6
Intake:
Oral fluids 200 / 200 150 / 150
IV fluids (Total) 3310.6 / 3356.4 1045.6 / 1045.6
Nss 1,000 ml @ 100 mls/hr IV . 2199 / 2199
Q10H KARINA Rx#:[id number]
Vaso 120 / 132 288 / 288
norepinephrine 990.6 / 1024.4 757.6 / 757.6
IV piggybacks 280 / 280 650 / 650
Output:
Urine, Gregory 3585 / 3585 1020 / 1020
Laboratory Results
02/08/24 03:43
02/08/24 03:43
Review of Systems
-
: Difficulty Voiding
Physical Exam
-
General - well developed, well nourished, no acute distress
Chest - clear bilaterally
Abdomen - soft, non-tender, positive bowel sounds, no CVAT, no incisional pain or distention
Genitalia - normal
Rectal - normal
Skin - warm & dry with no rash
Neuro - AOx3, no motor deficits
Extremities - no clubbing, no cyanosis, no edema
Incision - clean, dry
Dressing - clean, dry, intact
Care Review
Data Reviewed
Discussed with: Family
[2024-02-08] MEDS: DILAUDID 0.5 MG IV ×2 (09:31→11:31)
[2024-02-08] MEDS: SAPHRIS 2.5 MG SL (10:27)
--- NOTE | 2024-02-08 10:45 | W.PN.UPDATE ---
Update Note
Progress Note Update
Held discussion today in the morning with patient's son, Jason, in front of the patient. Patient is now endorsing that she wants 'to .' Oxygen requirements are worsening and so are vasopressor requirements. Extensive discussion held and we have
agreed to consult hospice care and transition to comfort care measures. All questions were answered. Primary hospitalist made aware.
--- NOTE | 2024-02-08 11:41 | CM ---
Addendum entered by José Luis Elizabeth 02/08/24 14:47:
per , pt is comfort care.
Original Note:
CM following re: discharge planning.
Discussed in rounds, reviewed pt's chart, met with pt and pt's son Josh at bedside.
Hospice consult noted. Pt and her son preferred hospice. Emotional support offered and provided.
A referral to hospice made.
D/C plan: return back to [facility] personal care with hospice.
CM will follow to assist pt with discharge plan updates as hospitalization progresses
--- NOTE | 2024-02-08 12:21 | W.PN.HOSP.TC ---
Today's Communication/Plan
-
Comfort care
Assessment / Plan
Assessment / Plan
Impression:
Septic shock
Recurrent urinary tract infection/CAUTI
-Indwelling Moseley catheter
Diarrhea on presentation with stool incontinence
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
Acute kidney injury.
Toxic metabolic encephalopathy secondary to infection
Acute hypoxic respiratory insufficiency
Other conditions:
Chronic sacral decubital ulcers
Chronic lower extremity pressure wounds.
Chronic diastolic CHF
CKD stage IIIb.
Essential hypertension.
Paroxysmal A-fib.
Tachybradycardia syndrome status post PPM.
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
History of C. difficile infection
Pancreatic insufficiency
GERD
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
Surgical history including appendectomy, tonsillectomy, neurostimulator placement 1988
Plan:
Rapid deterioration with sepsis with septic shock requiring multiple vasopressors and ongoing multiple organ failure with progressive encephalopathy.
In discussion with patient family and according to patient's wishes care will be transition to comfort.
Anticipated Discharge: 24 - 48 hours
Subjective/Interval History
-
Date of Service: February 08, 2024
Objective Data
-
Labs:
Laboratory Results
02/08/24
03:43
WBC 19.3 H
Hgb 11.8 L
Hct 36.6 L
Plt Count 179 D
Sodium 138
Potassium 3.6
Chloride 106
Carbon Dioxide 21 L
BUN 27 H
Creatinine 1.5 H
Glucose 110 H
Calcium 8.5
Vital Signs:
Vital Signs
Temp Pulse Resp BP Pulse Ox
97.9 F 130 24 120/61 90
02/08/24 07:47 02/08/24 12:00 02/08/24 12:00 02/08/24 12:00 02/08/24 10:45
I&O
02/07/24 02/08/24 02/09/24
06:59 06:59 06:59
Intake Total 3790.6 / 3836.4 1845.6 / 1845.6 342 / 342
Output Total 3585 / 3585 1020 / 1020 90 / 90
Balance 205.6 / 251.4 825.6 / 825.6 252 / 252
Physical Exam
-
General: Well Developed, Well Nourished, Fever and Appears Chronically Ill
HEENT: Normocephalic, Atraumatic and Moist Mucous Membranes
Respiratory: Clear to Auscultation (on shallow respirations)
Cardiac: Regular Rhythm and S1/S2
GI: Soft, Nontender and Nondistended
Genito-urinary: Moseley
Neuro: Awake, Alert and Oriented
[2024-02-08] MEDS: MORPHINE SULFATE 2 MG IV (12:52)
--- NOTE | 2024-02-08 13:02 | PTCARENOTE ---
Pt received in bed. Pt tearful and anxious. Disoriented to time. Refusing PO intake. Stating pain but unable to rate. Saying, 'I don't want to do this anymore. I'm ready to .' Son at bedside, patient repeated wishes to son. Conversation head at
bedside with Dr. Mosley and then Dr. Urbina. New orders for Comfort Care. Pressors turned off. PRN Morphine administered per protocol.
--- NOTE | 2024-02-08 14:21 | HOSPNOTE ---
Spoke with family and they are in agreement to discontinue all medications and make the patient comfortable. Morphine IV was given and the family would like the patient to be comfortable. Will continue to follow and support. Patient appears to be
imminent.
--- NOTE | 2024-02-08 14:55 | W.PN.DEATH ---
Pronouncement of
-
Called to see patient to pronounce.
No spontaneous heart tones or respirations noted.
Patient not responsive to verbal stimuli.
Patient is pronounced .
Time of : 14:18
Date of : 02/08/24
Cause of : Sepsis with septic shock and multiple organ failure
Family Notified: Yes
--- NOTE | 2024-02-08 15:28 | PTCARENOTE ---
Pt pronounced with time of 14:18. Emotional support to son at bedside. Postportem care provided.
== END 2024-02-08 14:18 | disposition expired | DRG 698 ==
LOC: ICU 13:35
PROVIDERS: Nurse Practitioner Family; Nurse Practitioner Primary Care; Radiology Diagnostic Radiology; ADMITTING PHYSICIAN Internal Medicine; ATTENDING PHYSICIAN Internal Medicine; EMERGENCY PHYSICIAN Emergency Medicine; FAMILY PHYSICIAN Hospitalist; OTHER PHYSICIAN Internal Medicine; OTHER PHYSICIAN Internal Medicine Infectious Disease; OTHER PHYSICIAN Psychiatry & Neurology Psychiatry; OTHER PHYSICIAN Specialist; OTHER PHYSICIAN Surgery
PROC: 02HV33Z Insertion of Infusion Device into Superior Vena Cava, Percutaneous Approach (ICD-10-PCS; 2024-02-05)
DX: T83.511A Infection and inflammatory reaction due to indwelling urethral catheter, initial encounter (principal); A41.81 Sepsis due to Enterococcus; L89.613 Pressure ulcer of right heel, stage 3; L89.893 Pressure ulcer of other site, stage 3; R65.21 Severe sepsis with septic shock; G92.8 Other toxic encephalopathy; Z66 Do not resuscitate; Z51.5 Encounter for palliative care; N17.9 Acute kidney failure, unspecified; I50.32 Chronic diastolic (congestive) heart failure; I13.0 Hypertensive heart and chronic kidney disease with heart failure and stage 1 through stage 4 chronic kidney disease, or unspecified chronic kidney disease; F03.93 Unspecified dementia, unspecified severity, with mood disturbance; F03.94 Unspecified dementia, unspecified severity, with anxiety; N18.32 Chronic kidney disease, stage 3b; D63.1 Anemia in chronic kidney disease; E78.00 Pure hypercholesterolemia, unspecified; G62.9 Polyneuropathy, unspecified; I49.5 Sick sinus syndrome; K86.89 Other specified diseases of pancreas; M81.0 Age-related osteoporosis without current pathological fracture; N30.11 Interstitial cystitis (chronic) with hematuria; L89.152 Pressure ulcer of sacral region, stage 2; R19.7 Diarrhea, unspecified; I48.0 Paroxysmal atrial fibrillation; R62.7 Adult failure to thrive; K21.9 Gastro-esophageal reflux disease without esophagitis; R06.89 Other abnormalities of breathing; R09.02 Hypoxemia; Z11.52 Encounter for screening for COVID-19; Z68.28 Body mass index [BMI] 28.0-28.9, adult; Z74.01 Bed confinement status; Z96.649 Presence of unspecified artificial hip joint; Z95.0 Presence of cardiac pacemaker; Z79.899 Other long term (current) drug therapy; Z88.2 Allergy status to sulfonamides; Z86.718 Personal history of other venous thrombosis and embolism; Z88.6 Allergy status to analgesic agent; Z88.1 Allergy status to other antibiotic agents; Z88.5 Allergy status to narcotic agent; Y84.6 Urinary catheterization as the cause of abnormal reaction of the patient, or of later complication, without mention of misadventure at the time of the procedure
CPT/HCPCS: 71045; 74176; 80048; 80053; 80202; 81003; 81015; 82962; 83605; 83735; 85025; 85027; 85610; 85730; 87040; 87045; 87046; 87070; 87077; 87086; 87147; 87186; 87205; 87324; 87427; 87449; 87502; 87811; 92610; 93005; 93306; 96361; 96374; 99291